=== PATIENT | female | born 1960 | race Caucasian/White ===

== ENCOUNTER → 2017-11-20 21:38 | Outpatient (CLI) | payer OTHER, SELFPAY ==
[2017-11-20 22:22] LABS: Absolute Lymphocyte Count 2.43 X10^3/ul (0.83-4.51); Absolute Neutrophil Count 7.3 X10^3/uL (2.0-7.7); Basophil# 0.11 X10^3/uL; Eosinophil# 0.41 X10^3/uL; Eosinophils% 3.8 % (0-5); Hematocrit 44.9 % (37-47); Hemoglobin 15.1 g/dl (12.0-15.0); Lymphocyte # 2.43 X10^3/ul (4.0); Lymphocyte % 22.3 % (19-41); Mean Corp Hgb Conc 33.6 g/gl (32-36); Mean Corpuscular Hgb 28.6 pg (27.0-32.0); Monocyte# 0.61 X10^3/uL; Monocyte% 5.6 % (0-10); Neutrophil # 7.31 X10^3/uL (2.7-7.7); Neutrophil % 66.9 % (47-70); Platelet Count 445 K/mm3 (150-450); RBC Distribution Width CV 13.2 % (11.6-14.6); RBC Distribution Width SD 40.8 fl (35.1-43.9); Red Blood Count 5.28 M/mm3 (4.2-5.4); White Blood Count 10.9 K/mm3 (4.4-11.0)
[2017-11-20 22:23] LABS: Differential Indicated SCAN CRITERIA MET; POSITIVE COUNT YES; POSITIVE DIFFERENTIAL NO; POSITIVE MORPHOLOGY NO
[2017-11-20 22:25] LABS: AST(SGOT) 27 U/L (15-37); Alanine Aminotransfer ALT/SGPT 31 U/L (13-56); Albumin, Serum 4.5 g/dL (3.2-5.0); Alkaline Phosphatase 149 U/L (45-117); Anion Gap 12 (5-15); BUN 13 mg/dL (7-18); Calcium,Total 9.6 mg/dL (8.5-10.1); Chloride 95 mmol/L (98-107); Cholesterol 207 mg/dL (200); EST Glomerular Filtration Rate 60 mL/min (>60); Est Glom Filt Rate - Afr Amer 73 mL/min (>60); Globulin 4.5 g/dL (2.2-4.2); Glucose 89 mg/dL (74-106); High Density Lipoprotein 65 mg/dL; Potassium 4.3 mmol/L (3.5-5.1); Sodium Level 130 mmol/L (136-145); T4 Free Direct 0.96 ng/dL (0.76-1.46); Triglycerides 162 mg/dL; Very Low Density Lipoprotein 32 mg/dL (5-40)
[2017-11-20 22:50] LABS: Platelet Estimate ADEQUATE (ADEQ)
[2017-11-20 22:51] LABS: Differential Comment SCANNED
== END ==
PROVIDERS: Family Provider Internal Medicine; PCP Internal Medicine; Visit Provider Nurse Practitioner
DX: I10 Essential (primary) hypertension (principal); E03.9 Hypothyroidism, unspecified; E78.5 Hyperlipidemia, unspecified; F41.9 Anxiety disorder, unspecified
CPT/HCPCS: 80053; 80061; 84439; 84443; 85025

== ENCOUNTER → 2017-12-25 21:28 | Outpatient (CLI) | payer OTHER, SELFPAY ==
[2017-12-25 21:55] LABS: AST(SGOT) 24 U/L (15-37); Alanine Aminotransfer ALT/SGPT 31 U/L (13-56); Albumin, Serum 4.2 g/dL (3.2-5.0); Alkaline Phosphatase 135 U/L (45-117); Anion Gap 7 (5-15); BUN 11 mg/dL (7-18); BUN/Creat Ratio 12.1 RATIO (10-20); Calcium,Total 10.1 mg/dL (8.5-10.1); Chloride 97 mmol/L (98-107); Creatinine, Serum 0.91 mg/dL (0.55-1.02); EST Glomerular Filtration Rate 67 mL/min (>60); Est Glom Filt Rate - Afr Amer 81 mL/min (>60); Glucose 96 mg/dL (74-106); Potassium 4.5 mmol/L (3.5-5.1); Protein, Total 8.2 g/dL (6.4-8.2); Sodium Level 131 mmol/L (136-145)
== END ==
PROVIDERS: Family Provider Internal Medicine; PCP Internal Medicine; Visit Provider Nurse Practitioner
DX: E87.1 Hypo-osmolality and hyponatremia (principal)
CPT/HCPCS: 80053

== ENCOUNTER → 2018-10-31 | Outpatient (CLI) | payer OTHER, SELFPAY ==
[2018-10-31 20:47] VITALS: BMI 26.4
== END | disposition home or self-care (01) ==
PROVIDERS: Family Provider Internal Medicine; PCP Internal Medicine; Referring Provider Nurse Practitioner; Visit Provider Nurse Practitioner
DX: N39.0 Urinary tract infection, site not specified (principal)
CPT/HCPCS: 87086; 87088; 87186

== ENCOUNTER → 2018-12-07 | Outpatient (CLI) | payer OTHER, SELFPAY ==
[2018-12-07 11:50] VITALS: BMI 26.1
[2018-12-07 22:14] LABS: Absolute Lymphocyte Count 2.88 X10^3/uL (0.83-4.51); Absolute Neutrophil Count 7.3 X10^3/uL (2.0-7.7); Basophil# 0.16 X10^3/uL; Basophil% 1.4 % (0-1); Eosinophil# 0.62 X10^3/uL; Eosinophils% 5.2 % (0-5); Hematocrit 41.2 % (37-47); Hemoglobin 13.6 g/dL (12.0-15.0); Lymphocyte # 2.88 X10^3/ul (4.0); Lymphocyte % 24.4 % (19-41); Mean Corpuscular Hgb 28.2 pg (27.0-32.0); Mean Corpuscular Volume 85.5 fL (81-99); Mean Platelet Vol. 9.9 fl (6.2-12.0); Monocyte# 0.77 X10^3/uL; Monocyte% 6.5 % (0-10); NRBC Flagged by Analyzer 0 % (0-5); Neutrophil # 7.34 X10^3/uL (2.7-7.7); Neutrophil % 62.2 % (47-70); Platelet Count 491 K/mm3 (150-450); RBC Distribution Width CV 13.2 % (11.6-14.6); RBC Distribution Width SD 40.9 fl (35.1-43.9); Red Blood Count 4.82 M/mm3 (4.2-5.4); White Blood Count 11.8 K/mm3 (4.4-11.0)
[2018-12-07 22:36] LABS: AST(SGOT) 25 U/L (15-37); Alanine Aminotransfer ALT/SGPT 25 U/L (13-56); Alkaline Phosphatase 181 U/L (45-117); Anion Gap 10 (5-15); BUN 16 mg/dL (7-18); Calcium,Total 9.9 mg/dL (8.5-10.1); Chloride 94 mmol/L (98-107); Cholesterol 168 mg/dL (200); EST Glomerular Filtration Rate 60 mL/min (>60); Est Glom Filt Rate - Afr Amer 73 mL/min (>60); Globulin 4.2 g/dL (2.2-4.2); Glucose 93 mg/dL (74-106); High Density Lipoprotein 54 mg/dL; Potassium 4.3 mmol/L (3.5-5.1); Protein, Total 8.2 g/dL (6.4-8.2); Sodium Level 132 mmol/L (136-145); Thyroid Stim Hormone (TSH) 0.99 uIU/mL (0.358-3.74); Triglycerides 191 mg/dL; Very Low Density Lipoprotein 38 mg/dL (5-40)
== END | disposition home or self-care (01) ==
PROVIDERS: Referring Provider Nurse Practitioner; Visit Provider Nurse Practitioner
DX: I10 Essential (primary) hypertension (principal); E78.5 Hyperlipidemia, unspecified; E03.9 Hypothyroidism, unspecified
CPT/HCPCS: 80053; 80061; 84443; 85025

== ENCOUNTER 2019-08-27 13:29 | Emergency (ER) | payer OTHER, SELFPAY ==
[2019-07-10 15:16] VITALS: BMI 26.1
[2019-08-27] VITALS (7 sets, daily range): BP systolic 105–179; BP diastolic 84–129; PULSE 79–136; RESP 16–28; TEMP 35.9–36.7; O2SAT 98–100; BMI 27.8
--- NOTE | 2019-08-27 13:31 | CT_ITS ---
STUDY: CT BRAIN WITHOUT CONTRAST REASON FOR EXAM: Female, 59 years old. SEIZURES, FALL LAST WEEK RADIATION DOSAGE (If Supplied By Facility): CTDIvol = ( 35 ) mGy, DLP = ( 1392.07 ) mGycm TECHNIQUE: Transaxial CT imaging of the brain was performed without administration of intravenous contrast material. Individualized dose optimization techniques were used for this CT. COMPARISON: No relevant priors. FINDINGS: Normal soft tissue structures. Normal calvarium. Normal size ventricles and extra-axial spaces for the patient''s age. Focal hemorrhagic contusion in the left posterior frontal temporal lobe measuring 1.7 cm x 1.4 cm. Possible small amount of subarachnoid hemorrhage in the left sylvian fissure. No significant edema is seen. Normal basal ganglia and thalami. Normal brainstem. Normal cerebellum. There are no findings of an acute ischemic infarction. Opacification of the ethmoid sinuses bilaterally. Minimal mucosal thickening of the maxillary sinuses. CT/Brain/Head without Contrast IMPRESSION: Focal hemorrhagic contusion in the posterior aspect of the left frontal and temporal lobes. No surrounding edema is seen. Possible small amount of subarachnoid hemorrhage within the left sylvian fissure. Electronically Signed: Harjit Galvan, at 14:26 EDT , Service support ,
--- NOTE | 2019-08-27 13:31 | EKG12_ITS ---
Test Reason : Blood Pressure : / mmHG Vent. Rate : 130 BPM Atrial Rate : 130 BPM P-R Int : 152 ms QRS Dur : 094 ms QT Int : 310 ms P-R-T Axes : 059 062 013 degrees QTc Int : [address]-T Changes Suspicious for Ischemia Abnormal ECG Confirmed by RON KNOX, DEVYN ([id number]), managing editor HETAHER MANNING ([id number]) on 09/01/2019 1:53:42 PM Referred By: SHAYY Confirmed By:BAN VELASQUEZ MD
[2019-08-27] MEDS: Rocuronium Bromide 50 MG/5 ML Vial IV (13:36)
[2019-08-27] MEDS: Etomidate 20 MG/10 ML Vial IV (13:36)
--- NOTE | 2019-08-27 13:39 | ED.DCSUM_ITS ---
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 Before patient recovered from seizure she had a second witnessed generalized tonic clonic seizure by paramedics. Context: Sudden Onset Timing: Intermittent Quality: Generalized tonic-clonic Location: Residents Current Severity: Moderate Maximum Severity: Severe Worsened by: History of fall with head trauma 1 week ago Relieved by: Seizure stopped with 2.5 mg of Valium Narrative: Is a 59-year-old woman with history of mastectomy bilaterally who presents with generalized tonic-clonic seizure, status after reported fall and head trauma 1 week ago. According to prospecting observer she is on no anticoagulant. No other history is available at the time of this report. Prior similar symptoms: No Recent Illness/Hospitalization: No - Past Medical History (1) GERD (gastroesophageal reflux disease) Status: Acute (2) Hyperlipemia Status: Acute (3) Hypothyroidism (acquired) Status: Acute (4) Hypertension Status: Chronic Past Medical History - Allergies and Home Meds Allergies/Adverse Reactions: Allergies Sulfa (Sulfonamide Antibiotics) Allergy (Severe, Verified 11/20/17 09:49) Chest tightness Penicillins Allergy (Mild, Verified 11/20/17 09:49) Other Primary Care Physician: NOT,DEFINED [NON-STAFF] - Prior records reviewed: Yes Surgical History: - - Bilateral mastectomy note Smoking Status: Former smoker Review of Systems ROS: Unable to Obtain Physical Exam Vital Signs/Narrative: Vital Signs Temp Pulse Resp BP Pulse Ox 08/27/19 13:31 96.9 F L 102 H 18 105/84 H 100 Inital Vital Signs reviewed: Yes General: Well nourished, Well developed, Obese Head: Normocephalic, Atraumatic Eyes: Perrl, EOMI, - - 4 mm sluggishly reactive and disconjugate gaze no subconjunctival hemorrhage. Negative for: Pale conjunctiva, Scleral icterus ENT: No rhinorrhea, TM's clear, - - No clinical findings of basilar skull fracture. Negative for: Dry mucous membranes, Nasal congestion Neck: Supple, No lymphadenopathy, No JVD Cardiovascular: Regular rhythm, No murmurs, Normal S1, Normal S2, Tachycardia Respiratory: No distress, CTA bilaterally Abdomen: Soft, Nontender, Nondistended, Normal bowel sounds Rectal: Deferred Back: Nontender, Normal Inspection Extremities: Nontender, No edema Skin: Normal color, No rash, No Trauma. Negative for: Cyanosis, Diaphoresis, Jaundice Neurological: Normal DTR - Decerebrate posturing to noxious stimuli and Babinski testing. Negative for: Alert, Oriented x3, Cranial nerves II-XII grossly intact, Normal Strength, Normal Sensation Psychological: - - Unable to determine Diagnostic/Tx/Re-eval Chest X-Ray - ED: 1 View, Read by ED Physician, - - Tracheal tube is noted right main bronchus. The tube was pulled back 2.5 cm. Oral tracheal tube in proper position. CT of the head reveals a right-sided superior parietal sub-cutaneous hematoma. There is contrecou parenchymal contusion as well as contusion right temporal area. There is no subdural, epidural or subarachnoid hemorrhage. CT of the neck per my read reveals no abnormality. Awaiting formal read by radiologist. Impressions Chest X-Ray 08/27/19 13:45 IMPRESSION: The tip of the endotracheal tube is in the proximal portion of the right mainstem bronchus. It should be withdrawn 4.1 cm. The tip of the orogastric tube is in the distal portion of the stomach. Mild increased markings in the central portion of the left lung. Electronically Signed: Harjit Mandy, at 14:02 EDT , Service support , 08/27/19 13:31 Brain/Head without Contrast [CT] Stat 08/27/19 13:45 Chest 1 View (Portable) [RAD] Stat 08/27/19 14:01 Spine Cervical without Contras [CT] Stat Laboratory Results 08/27/19 08/27/19 13:37 13:37 WBC 23.4 H RBC 4.15 L Hgb 11.6 L Hct 37.0 MCV 89.2 MCH 28.0 MCHC 31.4 L RDW Std Deviation 43.1 RDW Coeff of Jessica 13.2 Plt Count 637 H MPV 9.3 Immature Gran % (Auto) 0.500 Neut % (Auto) 37.6 L Lymph % (Auto) 25.1 Screven % (Auto) 5.3 Eos % (Auto) 30.2 H Baso % (Auto) 1.3 H Absolute Neuts (auto) 8.8 H Absolute Lymphs (auto) 5.85 H Nucleated RBC % 0 Sodium 129 L Potassium 3.5 Chloride 94 L Carbon Dioxide 14.0 L Anion Gap 21 H BUN 14 Creatinine 1.29 H Estim Creat Clear Calc 37.88 Est GFR (MDRD) Af Amer 54 L Est GFR (MDRD) Non-Af 45 L BUN/Creatinine Ratio 10.9 Glucose 119 H Calcium 9.2 Total Bilirubin 0.50 AST 25 ALT 27 Alkaline Phosphatase 224 H Total Protein 8.1 Albumin 3.7 Globulin 4.4 H Albumin/Globulin Ratio 0.8 L Patient is hyponatremic. This would not explain her seizures. Seizure secondary to the trauma. Creatinine is 1.29. Coags are pending. - Rhythm Strip Rhythm Strip: Sinus Tach Rate: 102 Ectopy: None - Medical Decision Making History of head trauma and status epilepticus with posturing concern patient has intracranial bleed. Because patient is unable to protect her airway and does have decerebrate posturing she was prepped orotracheal ovation. She received 20 mg etomidate and 50 mg of rocuronium. Propofol drip was ordered. Soft restraints were ordered. CT of the head was obtained to rule out intracranial bleed. Appropriate blood work was obtained including coags. Once family arrives we will discuss case for transfer to tertiary facility. Spoke with daughter and family members by phone. Requested transfer to [facility]. Spoke with the transfer nurse. She was made aware of history and physical. Concern is this going to be a trauma transfer versus ICU transfer. Awaiting CAT scan to determine. - Critical Care Time Critical care time (excluding procedures): 30-74 minutes - Critical care time 34 minutes, Discussing w/Patient &/or Family/Truck And Transport Mechanic - Family requested transfer to [facility]. Family is aware of her condition., Discussing w/Consultants, Arranging Admission or Transfer - Spoke with transfer nurse and ED physician at [facility], Performing Direct Patient Care at Bedside Procedures Procedure(s): Intubation by RSI. Patient received 20 mg etomidate and 50 mg rocuronium. Patient was placed on a propofol drip. OG and ET tube confirmed by chest x-ray. ETT was pulled back. ED Disposition - Plan for ED Patient: Disposition: [facility] Diagnosis: Traumatic brain injury, Contusional brain injury, Status epilepticus Referrals: NOT,DEFINED [NON-STAFF] -
--- NOTE | 2019-08-27 13:45 | RAD_ITS ---
STUDY: X-RAY CHEST REASON FOR EXAM: Female, 59 years old. Difficulty breathing. TECHNIQUE: Single AP portable view of the chest. COMPARISON: None. FINDINGS: An endotracheal tube is in place. The tip is in the right mainstem bronchus. This should be withdrawn approximately 4 cm. An orogastric tube is seen with the distal tip in the distal portion of the stomach. Surgical clips are seen in both axillary regions. Mild increased markings in the central left lung most likely secondary to the intubation into the right bronchus. There is no demonstrated pleural abnormality. Normal size heart. Normal mediastinum and rigoberto. Normal visualized pulmonary arteries. Normal visualized aortic arch and descending thoracic aorta. Normal visualized thoracic spine. Normal visualized ribs, clavicles, and shoulders. There is no demonstrated abnormality of the visualized soft tissue structures of the upper abdomen. RAD/Chest 1 View (Portable) IMPRESSION: The tip of the endotracheal tube is in the proximal portion of the right mainstem bronchus. It should be withdrawn 4.1 cm. The tip of the orogastric tube is in the distal portion of the stomach. Mild increased markings in the central portion of the left lung. Electronically Signed: Harjit Galvan, at 14:02 EDT , Service support ,
[2019-08-27] MEDS: 0.9% Normal Saline 1,000 ML 150 ML IV (13:48)
[2019-08-27 13:50] LABS: Absolute Lymphocyte Count 5.85 X10^3/uL (0.83-4.51); Absolute Neutrophil Count 8.8 X10^3/uL (2.0-7.7); Basophil# 0.31 X10^3/uL; Basophil% 1.3 % (0-1); Eosinophils% 30.2 % (0-5); Hemoglobin 11.6 g/dL (12.0-15.0); Lymphocyte # 5.85 X10^3/ul (4.0); Lymphocyte % 25.1 % (19-41); Mean Corp Hgb Conc 31.4 g/dL (32-36); Mean Corpuscular Volume 89.2 fL (81-99); Mean Platelet Vol. 9.3 fl (6.2-12.0); Monocyte# 1.24 X10^3/uL; Monocyte% 5.3 % (0-10); NRBC Flagged by Analyzer 0 % (0-5); Neutrophil # 8.78 X10^3/uL (2.7-7.7); Neutrophil % 37.6 % (47-70); POSITIVE DIFFERENTIAL YES; Platelet Count 637 K/mm3 (150-450); RBC Distribution Width CV 13.2 % (11.6-14.6); RBC Distribution Width SD 43.1 fl (35.1-43.9); Red Blood Count 4.15 M/mm3 (4.2-5.4); White Blood Count 23.4 K/mm3 (4.4-11.0)
[2019-08-27 13:52] LABS: Differential Indicated SCAN CRITERIA MET; Eosinophil# 7.05 X10^3/uL
--- NOTE | 2019-08-27 13:53 | NURSING ---
CALLED [facility], TALKED KALIA. DR LUCAS TALKING ABOUT TRANSFER
--- NOTE | 2019-08-27 14:01 | CT_ITS ---
STUDY: CT CERVICAL SPINE WITHOUT CONTRAST REASON FOR EXAM: Female, 59 years old. SEIZURES, FALL LAST WEEK RADIATION DOSAGE (If Supplied By Facility): CTDIvol = ( 26.44 ) mGy, DLP = ( 595.96 ) mGycm TECHNIQUE: High resolution transaxial imaging was performed without contrast material. Sagittal and coronal images were reconstructed. Individualized dose optimization techniques were used for this CT. COMPARISON: None FINDINGS: An endotracheal tube is seen within the trachea. An orogastric tube is seen within the esophagus. Normal craniovertebral junction. Normal anterior atlantoaxial articulation. Normal odontoid process. There is straightening of the normal cervical lordosis. Normal vertebral bodies and posterior osseous elements. C2-3: Normal endplates. Normal disc height and morphology. Normal central canal and intervertebral neuroforamina. C3-4: Minimal anterolisthesis of C3 on C4 most likely secondary to the facet joint osteoarthritis and hypertrophy worse on the left side. C4-5: Normal endplates. Normal disc height and morphology. Normal central canal and intervertebral neuroforamina. C5-6: Normal endplates. Normal disc height and morphology. Normal central canal and intervertebral neuroforamina. C6-7: Normal endplates. Normal disc height and morphology. Normal central canal and intervertebral neuroforamina. C7-T1: Normal endplates. Normal disc height and morphology. Normal central canal and intervertebral neuroforamina. Normal visualized soft tissue structures. CT/Spine Cervical without Contras IMPRESSION: Straightening of the normal cervical lordosis with minimal anterolisthesis of C3 on C4 most likely secondary to the facet joint hypertrophy and osteoarthritis more prominent on the left side. Electronically Signed: Harjit Galvan, at 14:23 EDT , Service support ,
[2019-08-27 14:07] LABS: ALB/GLOB Ratio 0.8 RATIO (0.9-2.4); AST(SGOT) 25 U/L (15-37); Alanine Aminotransfer ALT/SGPT 27 U/L (13-56); Albumin, Serum 3.7 g/dL (3.2-5.0); Alkaline Phosphatase 224 U/L (45-117); Anion Gap 21 (5-15); BUN 14 mg/dL (7-18); BUN/Creat Ratio 10.9 RATIO (10-20); Calcium,Total 9.2 mg/dL (8.5-10.1); Chloride 94 mmol/L (98-107); Creatinine, Serum 1.29 mg/dL (0.55-1.02); EST Glomerular Filtration Rate 45 mL/min (>60); Est Glom Filt Rate - Afr Amer 54 mL/min (>60); Estimated Creatinine Clearance 37.88 ml/min; Globulin 4.4 g/dL (2.2-4.2); Glucose 119 mg/dL (74-106); Potassium 3.5 mmol/L (3.5-5.1); Protein, Total 8.1 g/dL (6.4-8.2); Sodium Level 129 mmol/L (136-145)
[2019-08-27] MEDS: Propofol 10MG/Ml 1,000 MG/100 ML Bottle 4.3 MG CONT INF (14:07)
[2019-08-27 14:12] LABS: International Normalized Ratio 1.1; Prothrombin Time (Protime)PT. 13.4 SECONDS (11.7-14.9)
[2019-08-27 14:13] LABS: Partial Thromboplast Time 26.9 Seconds (24.1-36.2)
[2019-08-27 14:14] LABS: Alcohol, Blood (Medical)-Serum < 3.0 mg/dL
[2019-08-27 14:22] LABS: Burr Cells 1+; Platelet Estimate MKD INC (ADEQ); Red Cell Morphology N CHROM NORMAL (NORM C&C)
--- NOTE | 2019-08-27 14:23 | NURSING ---
1419 ETA IS 20 MIN FOR FLIGHT
[2019-08-27 14:38] LABS: Mucous, Urine 0 SEEN /hpf (<or=2+); Squamous Epithelial Cells - UA 0 SEEN /hpf (5-10)
[2019-08-27] MEDS: Propofol 200 MG/20 ML Vial 70 MG IV BOLUS (14:39)
[2019-08-27 14:40] LABS: Color, Urine Yellow (Yellow); Glucose, Dipstick Normal (Normal); Ketone-Dipstick Negative (Negative); Leukocyte Esterase-Dipstick Negative /ul (Negative); Nitrite-Dipstick Negative (Negative); Occult Blood-Urine 25 /ul (Negative); Protein-Dipstick 30 mg/dl (Negative); Urine Bilirubin Dipstick Negative (Negative); Urine Clarity Clear (Clear); Urine Urobilinogen Normal (Normal); Urine pH 6.5 (5.0 - 8.0)
[2019-08-27 14:49] LABS: Bacteria 1+ /hpf (None Seen); Hyaline Cast 0-5 SEEN /lpf (0-5); Red Blood Cells-Urine 0-5 SEEN /hpf (0-5); Renal Epithelial Cells 0-5 SEEN /hpf (0-5); White Blood Cells 0-5 SEEN /hpf (0-5)
[2019-08-27 15:06] LABS: Amphetamine Urine VISTA NEGATIVE (<1000 ng/mL); Barbiturate Urine VISTA NEGATIVE (< 200 ng/mL); Benzodiazepine Urine VISTA POSITIVE (< 200 ng/mL); Cocaine Urine VISTA NEGATIVE (< 300 ng/mL); Ecstacy Urine VISTA POSITIVE (< 500 ng/mL); Methadone Urine VISTA NEGATIVE (< 300 ng/mL); PCP Urine VISTA NEGATIVE (< 25 ng/mL); THC Urine VISTA NEGATIVE (< 50 ng/mL); Vista UDS pH Range 6
[2019-08-27 17:16] LABS: Base Excess -10 mmol/L (-2 to +2); Bicarbonate 17.2 mmol/L (22-26); PO2 102 mmHG (75-100); SO2 97 % (95-99); Total Carbon Dioxide 18 mmol/L; pH 7.24 (7.35-7.45)
[2019-08-27 18:17] LABS: Allen Test POS; Blood Gas Specimen Type ART; Mode A-C; O2 Delivery Device Vent; SITE R RADIAL
[2019-08-27 18:18] LABS: FI02 50; PEEP 5; RR 14; Vt 450
== END 2019-08-27 20:21 | disposition short-term general hospital (02) ==
PROVIDERS: Emergency Provider Emergency Medicine
DX: S06.9X0A Unspecified intracranial injury without loss of consciousness, initial encounter (principal); S06.2X0A Diffuse traumatic brain injury without loss of consciousness, initial encounter; G40.901 Epilepsy, unspecified, not intractable, with status epilepticus; E66.9 Obesity, unspecified; W19.XXXA Unspecified fall, initial encounter; Z87.891 Personal history of nicotine dependence
CPT/HCPCS: 31500; 36600; 51702; 70450; 71045; 72125; 80053; 80307; 80320; 81001; 82803; 85025; 85610; 85730; 93005; 94002; 96361; 96374; 96375; 99251; 99285; J7030; A4216; G0463; G0480

== ENCOUNTER → 2019-12-18 21:27 | Outpatient (CLI) | payer OTHER, SELFPAY ==
[2019-12-18 17:46] VITALS: BMI 26.7
[2019-12-18 21:36] LABS: Absolute Lymphocyte Count 3.27 X10^3/uL (0.83-4.51); Absolute Neutrophil Count 6.1 X10^3/uL (2.0-7.7); Basophil# 0.22 X10^3/uL; Basophil% 1.7 % (0-1); Eosinophils% 18.3 % (0-5); Hemoglobin 14.3 g/dL (12.0-15.0); Lymphocyte # 3.27 X10^3/ul (4.0); Mean Corpuscular Hgb 27.7 pg (27.0-32.0); Mean Corpuscular Volume 81.4 fL (81-99); Mean Platelet Vol. 9.9 fl (6.2-12.0); Monocyte# 0.66 X10^3/uL; Monocyte% 5.2 % (0-10); NRBC Flagged by Analyzer 0 % (0-5); Neutrophil # 6.08 X10^3/uL (2.7-7.7); Neutrophil % 48.4 % (47-70); POSITIVE DIFFERENTIAL YES; Platelet Count 544 K/mm3 (150-450); RBC Distribution Width CV 13.6 % (11.6-14.6); RBC Distribution Width SD 39.7 fl (35.1-43.9); Red Blood Count 5.16 M/mm3 (4.2-5.4); White Blood Count 12.6 K/mm3 (4.4-11.0)
[2019-12-18 21:44] LABS: Differential Indicated SCAN CRITERIA MET
[2019-12-18 22:01] LABS: ALB/GLOB Ratio 0.9 RATIO (0.9-2.4); AST(SGOT) 20 U/L (15-37); Alanine Aminotransfer ALT/SGPT 28 U/L (13-56); Albumin, Serum 4.1 g/dL (3.2-5.0); Alkaline Phosphatase 235 U/L (45-117); Anion Gap 7 (5-15); BUN 13 mg/dL (7-18); BUN/Creat Ratio 12.5 RATIO (10-20); Calcium,Total 10.2 mg/dL (8.5-10.1); Chloride 93 mmol/L (98-107); Creatinine, Serum 1.04 mg/dL (0.55-1.02); EST Glomerular Filtration Rate 57 mL/min (>60); Est Glom Filt Rate - Afr Amer 69 mL/min (>60); Globulin 4.8 g/dL (2.2-4.2); Glucose 120 mg/dL (74-106); Potassium 3.2 mmol/L (3.5-5.1); Protein, Total 8.9 g/dL (6.4-8.2); Sodium Level 128 mmol/L (136-145); Thyroid Stim Hormone (TSH) 0.56 uIU/mL (0.358-3.74)
[2019-12-18 22:07] LABS: Platelet Estimate MOD INC (ADEQ); Red Cell Morphology NORM C+C NORMAL (NORM C&C)
== END ==
PROVIDERS: PCP Nurse Practitioner; Referring Provider Nurse Practitioner; Visit Provider Nurse Practitioner
DX: E87.1 Hypo-osmolality and hyponatremia (principal); D64.9 Anemia, unspecified; E03.9 Hypothyroidism, unspecified; D51.9 Vitamin B12 deficiency anemia, unspecified
CPT/HCPCS: 80053; 84443; 85025

== ENCOUNTER → 2021-01-14 21:30 | Outpatient (CLI) | payer OTHER, SELFPAY ==
[2021-01-14 21:48] LABS: Absolute Lymphocyte Count 2.81 X10^3/uL (0.83-4.51); Basophil# 0.13 X10^3/uL; Eosinophil# 0.34 X10^3/uL; Eosinophils% 2.6 % (0-5); Hemoglobin 13.7 g/dL (12.0-15.0); Lymphocyte # 2.81 X10^3/ul (0.83-4.51); Lymphocyte % 21.4 % (19-41); Mean Corp Hgb Conc 33.4 g/dL (32-36); Mean Corpuscular Hgb 29.5 pg (27.0-32.0); Mean Corpuscular Volume 88.4 fL (81-99); Mean Platelet Vol. 9.6 fl (6.2-12.0); Monocyte# 0.82 X10^3/uL; Monocyte% 6.2 % (0-10); NRBC Flagged by Analyzer 0 % (0-5); Neutrophil # 8.98 X10^3/uL (2.7-7.7); Neutrophil % 68.4 % (47-70); Platelet Count 491 K/mm3 (150-450); RBC Distribution Width CV 12.5 % (11.6-14.6); RBC Distribution Width SD 40.1 fl (35.1-43.9); Red Blood Count 4.64 M/mm3 (4.2-5.4); White Blood Count 13.1 K/mm3 (4.4-11.0)
[2021-01-14 21:59] LABS: ALB/GLOB Ratio 0.9 RATIO (0.9-2.4); AST(SGOT) 17 U/L (15-37); Alanine Aminotransfer ALT/SGPT 31 U/L (13-56); Albumin, Serum 3.9 g/dL (3.2-5.0); Alkaline Phosphatase 150 U/L (45-117); Anion Gap 10 (5-15); BUN 19 mg/dL (7-18); BUN/Creat Ratio 16.1 RATIO (10-20); Calcium,Total 9.5 mg/dL (8.5-10.1); Chloride 99 mmol/L (98-107); Cholesterol 165 mg/dL (200); Creatinine, Serum 1.18 mg/dL (0.55-1.02); EST Glomerular Filtration Rate 49 mL/min (>60); Est Glom Filt Rate - Afr Amer 60 mL/min (>60); Globulin 4.5 g/dL (2.2-4.2); Glucose 86 mg/dL (74-106); High Density Lipoprotein 51 mg/dL; Potassium 2.9 mmol/L (3.5-5.1); Protein, Total 8.4 g/dL (6.4-8.2); Sodium Level 135 mmol/L (136-145); Triglycerides 365 mg/dL; Very Low Density Lipoprotein 73 mg/dL (5-40)
== END ==
PROVIDERS: PCP Nurse Practitioner; Referring Provider Nurse Practitioner; Visit Provider Nurse Practitioner
DX: K21.9 Gastro-esophageal reflux disease without esophagitis (principal); R56.9 Unspecified convulsions; I10 Essential (primary) hypertension
CPT/HCPCS: 80053; 80061; 85025

== ENCOUNTER → 2022-01-10 | Outpatient (CLI) | payer OTHER, SELFPAY ==
[2022-01-10 21:44] LABS: Absolute Lymphocyte Count 2.84 X10^3/uL (0.83-4.51); Absolute Neutrophil Count 7.5 X10^3/uL (2.0-7.7); Basophil# 0.11 X10^3/uL; Eosinophil# 0.21 X10^3/uL; Eosinophils% 1.8 % (0-5); Hematocrit 39.6 % (37-47); Lymphocyte # 2.84 X10^3/ul (0.83-4.51); Lymphocyte % 24.8 % (19-41); Mean Corp Hgb Conc 32.8 g/dL (32-36); Mean Corpuscular Hgb 27.4 pg (27.0-32.0); Mean Corpuscular Volume 83.5 fL (81-99); Mean Platelet Vol. 9.7 fl (6.2-12.0); Monocyte# 0.68 X10^3/uL; Monocyte% 5.9 % (0-10); NRBC Flagged by Analyzer 0 % (0-5); Neutrophil # 7.54 X10^3/uL (2.7-7.7); Platelet Count 559 K/mm3 (150-450); RBC Distribution Width CV 13.1 % (11.6-14.6); RBC Distribution Width SD 39.3 fl (35.1-43.9); Red Blood Count 4.74 M/mm3 (4.2-5.4); White Blood Count 11.4 K/mm3 (4.4-11.0)
[2022-01-10 22:08] LABS: ALB/GLOB Ratio 0.9 RATIO (0.9-2.4); AST(SGOT) 22 U/L (15-37); Alanine Aminotransfer ALT/SGPT 23 U/L (13-56); Albumin, Serum 3.9 g/dL (3.2-5.0); Alkaline Phosphatase 177 U/L (45-117); Anion Gap 8 (5-15); BUN 15 mg/dL (7-18); BUN/Creat Ratio 14.9 RATIO (10-20); Calcium,Total 9.7 mg/dL (8.5-10.1); Chloride 99 mmol/L (98-107); Cholesterol 175 mg/dL (200); Creatinine, Serum 1.01 mg/dL (0.55-1.02); EST Glomerular Filtration Rate 59 mL/min (>60); Est Glom Filt Rate - Afr Amer 71 mL/min (>60); Globulin 4.4 g/dL (2.2-4.2); Glucose 87 mg/dL (74-106); High Density Lipoprotein 51 mg/dL; Protein, Total 8.3 g/dL (6.4-8.2); Sodium Level 131 mmol/L (136-145); Thyroid Stim Hormone (TSH) 0.11 uIU/mL (0.358-3.74); Triglycerides 205 mg/dL; Very Low Density Lipoprotein 41 mg/dL (5-40)
== END | disposition home or self-care (01) ==
PROVIDERS: PCP Nurse Practitioner; Visit Provider Nurse Practitioner
DX: E03.9 Hypothyroidism, unspecified (principal); I10 Essential (primary) hypertension; E78.2 Mixed hyperlipidemia
CPT/HCPCS: 80053; 80061; 84443; 85025

== ENCOUNTER → 2023-02-01 | Outpatient (CLI) | payer OTHER, SELFPAY ==
[2023-02-01 20:35] LABS: Absolute Lymphocyte Count 2.79 X10^3/uL (0.83-4.51); Absolute Neutrophil Count 6.4 X10^3/uL (2.0-7.7); Basophil# 0.08 X10^3/uL; Basophil% 0.8 % (0-1); Eosinophil# 0.33 X10^3/uL; Eosinophils% 3.2 % (0-5); Hematocrit 38.4 % (37-47); Hemoglobin 12.3 g/dL (12.0-15.0); Lymphocyte # 2.79 X10^3/ul (0.83-4.51); Lymphocyte % 26.9 % (19-41); Mean Corpuscular Hgb 27.2 pg (27.0-32.0); Mean Platelet Vol. 9.5 fl (6.2-12.0); Monocyte# 0.75 X10^3/uL; Monocyte% 7.2 % (0-10); NRBC Flagged by Analyzer 0 % (0-5); Neutrophil # 6.37 X10^3/uL (2.7-7.7); Neutrophil % 61.4 % (47-70); Platelet Count 600 K/mm3 (150-450); RBC Distribution Width CV 13.1 % (11.6-14.6); RBC Distribution Width SD 40.2 fl (35.1-43.9); Red Blood Count 4.52 M/mm3 (4.2-5.4); White Blood Count 10.4 K/mm3 (4.4-11.0)
[2023-02-01 21:02] LABS: ALB/GLOB Ratio 0.9 RATIO (0.9-2.4); AST(SGOT) 22 U/L (15-37); Alanine Aminotransfer ALT/SGPT 25 U/L (13-56); Alkaline Phosphatase 137 U/L (45-117); Anion Gap 11 (5-15); BUN 16 mg/dL (7-18); BUN/Creat Ratio 14.4 RATIO (10-20); Calcium,Total 9.1 mg/dL (8.5-10.1); Chloride 92 mmol/L (98-107); Cholesterol 177 mg/dL (200); Creatinine, Serum 1.11 mg/dL (0.55-1.02); EST Glomerular Filtration Rate 53 mL/min (>60); Est Glom Filt Rate - Afr Amer 64 mL/min (>60); Globulin 4.5 g/dL (2.2-4.2); Glucose 103 mg/dL (74-106); High Density Lipoprotein 55 mg/dL; Potassium 3.5 mmol/L (3.5-5.1); Protein, Total 8.5 g/dL (6.4-8.2); Sodium Level 127 mmol/L (136-145); Thyroid Stim Hormone (TSH) 4.81 uIU/mL (0.358-3.74); Triglycerides 209 mg/dL; Very Low Density Lipoprotein 42 mg/dL (5-40)
== END | disposition home or self-care (01) ==
PROVIDERS: PCP Nurse Practitioner; Visit Provider Nurse Practitioner
DX: I10 Essential (primary) hypertension (principal); E78.5 Hyperlipidemia, unspecified; E03.9 Hypothyroidism, unspecified
CPT/HCPCS: 80053; 80061; 84443; 85025

== ENCOUNTER → 2023-03-27 | Outpatient (CLI) | payer MEDICARE, SELFPAY ==
--- OUTSIDE RECORDS SUMMARY | 2023-03-27 21:29 | XMS RPT_ITS | CCD ---
Author Name Unknown Address [address] [place] [address] Organization [facility] Results Test Name Value Interpretation Reference Range Facil ity Procedures Date Procedure Procedure Detail Performing Clinician Start: 08-28-2019 Electrocardiogram Start: 08-27-2019 Electrocardiogram Start: 08-27-2019 Antibody screen Summary Purpose Family History No Family History Records FoundNo Family History Records FoundNo Family History Records Found Advance Directives No Advanced Directives Records FoundNo Advanced Directives Records FoundNo Advanced Directives Records Found Hospital Course Note HNO ID: [id number] Author: Andrews Carbone Service: Trauma Author Type: Physician Type: Discharge Summary Filed: 08/30/2019 4:05 PM Note Text: DISCHARGE SUMMARY PATIENT NAME: Carla Blackmon Code Status: Not on file Highest Readmission Risk Score: 16 The 30 day readmissions risk score is derived from an internally validated risk model which evaluates patient level characteristics, utilization history, medication orders and lab results up until the day of discharge. Patients with a score of 40 or above are considered highest risk for readmission. Specific patient level drivers will be listed at the bottom of the summary. Admission Information Admission Information ADMIT DATE: 08/27/2019 DISCHARGE DATE: 08/30/2019 [facility] Doctor: Don Lizama Primary Care Provider: Edie Crowder NP My Medical Team Members: Treatment Team: Attending Provider: Don Lizama Consulting: Libia Navarro Consulting: Austin Morse Consultin (more content not included)... Additional Source Comments INFORMATION SOURCE (unrecogn ized section and content) DATE CREATED AUTHOR AUTHOR'S ORGANIZ ATION 02/11/2020 [facility] DATE CREATED AUTHOR AUTHOR'S ORGANIZ ATION 04/05/2022 [facility] FOR RECORDS PERTAINING TO PATIENTS WHO ARE OR HAVE BEEN ENROLLED IN A CHEMICAL DEPENDENCY/SUBSTANCEABUSE PROGRAM, SOME INFORMATION MAY BE OMITTED. This clinical summary was aggregated from multiple sources. Caution should be exercised in using it in the provision of clinical care. This summary normalizes information from multiple sources, and as a consequence, information in this document may materially change the coding, format and clinical context of patient data. In addition, data may be omitted in some cases. CLINICAL DECISIONS SHOULD BE BASED ON THE PRIMARY CLINICAL RECORDS. [facility] [employer] [facility]. provides no warranty or guarantee of the accuracy or completeness of information in this document.
[2023-03-27 22:02] LABS: Thyroid Stim Hormone (TSH) 1.58 uIU/mL (0.358-3.74)
== END | disposition home or self-care (01) ==
PROVIDERS: PCP Nurse Practitioner; Visit Provider Nurse Practitioner
DX: E03.9 Hypothyroidism, unspecified (principal)
CPT/HCPCS: 84443

== ENCOUNTER → 2024-01-29 | Outpatient (CLI) | payer MEDICARE, SELFPAY ==
[2024-01-29 23:32] LABS: Absolute Lymphocyte Count 2.64 X10^3/uL (0.83-4.51); Absolute Neutrophil Count 6.3 X10^3/uL (2.0-7.7); Basophil# 0.09 X10^3/uL; Basophil% 0.9 % (0-1); Eosinophil# 0.26 X10^3/uL; Eosinophils% 2.6 % (0-5); Hemoglobin 11.7 g/dL (12.0-15.0); Lymphocyte # 2.64 X10^3/ul (0.83-4.51); Lymphocyte % 26.8 % (19-41); Mean Corp Hgb Conc 32.5 g/dL (32-36); Mean Corpuscular Hgb 25.6 pg (27.0-32.0); Mean Corpuscular Volume 78.8 fL (81-99); Mean Platelet Vol. 9.4 fl (6.2-12.0); Monocyte# 0.57 X10^3/uL; Monocyte% 5.8 % (0-10); NRBC Flagged by Analyzer 0 % (0-5); Neutrophil # 6.26 X10^3/uL (2.7-7.7); Neutrophil % 63.5 % (47-70); Platelet Count 598 K/mm3 (150-450); RBC Distribution Width CV 14.2 % (11.6-14.6); RBC Distribution Width SD 40.3 fl (35.1-43.9); Red Blood Count 4.57 M/mm3 (4.2-5.4); White Blood Count 9.9 K/mm3 (4.4-11.0)
[2024-01-29 23:57] LABS: ALB/GLOB Ratio 0.9 RATIO (0.9-2.4); AST(SGOT) 17 U/L (15-37); Alanine Aminotransfer ALT/SGPT 21 U/L (13-56); Albumin, Serum 3.9 g/dL (3.2-5.0); Alkaline Phosphatase 142 U/L (45-117); Anion Gap 11 (5-15); BUN 13 mg/dL (7-18); Chloride 92 mmol/L (98-107); Cholesterol 241 mg/dL (200); Creatinine, Serum 0.93 mg/dL (0.55-1.02); EST Glomerular Filtration Rate 64 mL/min (>60); Est Glom Filt Rate - Afr Amer 78 mL/min (>60); Globulin 4.4 g/dL (2.2-4.2); Glucose 96 mg/dL (74-106); High Density Lipoprotein 54 mg/dL; Potassium 3.6 mmol/L (3.5-5.1); Protein, Total 8.3 g/dL (6.4-8.2); Sodium Level 126 mmol/L (136-145); Triglycerides 271 mg/dL; Very Low Density Lipoprotein 54 mg/dL (5-40)
== END | disposition home or self-care (01) ==
PROVIDERS: PCP Nurse Practitioner; Referring Provider Nurse Practitioner; Visit Provider Nurse Practitioner
DX: N30.90 Cystitis, unspecified without hematuria (principal); E78.1 Pure hyperglyceridemia; I10 Essential (primary) hypertension; R60.1 Generalized edema; E78.2 Mixed hyperlipidemia; E03.9 Hypothyroidism, unspecified; K21.9 Gastro-esophageal reflux disease without esophagitis
CPT/HCPCS: 80053; 80061; 84443; 85025; 87086; 87088

== ENCOUNTER → 2024-04-28 | Outpatient (CLI) | payer MEDICARE, SELFPAY ==
[2024-04-29] LABS: Absolute Lymphocyte Count 2.28 X10^3/uL (0.83-4.51); Absolute Neutrophil Count 7.2 X10^3/uL (2.0-7.7); Basophil# 0.09 X10^3/uL; Basophil% 0.9 % (0-1); Eosinophil# 0.33 X10^3/uL; Eosinophils% 3.1 % (0-5); Hematocrit 40.1 % (37-47); Lymphocyte # 2.28 X10^3/ul (0.83-4.51); Lymphocyte % 21.7 % (19-41); Mean Corp Hgb Conc 32.4 g/dL (32-36); Mean Corpuscular Hgb 26.7 pg (27.0-32.0); Mean Corpuscular Volume 82.5 fL (81-99); Mean Platelet Vol. 8.8 fl (6.2-12.0); Monocyte% 4.8 % (0-10); NRBC Flagged by Analyzer 0 % (0-5); Neutrophil # 7.23 X10^3/uL (2.7-7.7); Neutrophil % 68.9 % (47-70); Platelet Count 603 K/mm3 (150-450); RBC Distribution Width CV 15.3 % (11.6-14.6); RBC Distribution Width SD 46.5 fl (35.1-43.9); Red Blood Count 4.86 M/mm3 (4.2-5.4); White Blood Count 10.5 K/mm3 (4.4-11.0)
[2024-04-29 00:16] LABS: ALB/GLOB Ratio 0.9 RATIO (0.9-2.4); AST(SGOT) 19 U/L (15-37); Alanine Aminotransfer ALT/SGPT 27 U/L (13-56); Albumin, Serum 3.9 g/dL (3.2-5.0); Alkaline Phosphatase 131 U/L (45-117); Anion Gap 9 (5-15); BUN 17 mg/dL (7-18); BUN/Creat Ratio 16.7 RATIO (10-20); Calcium,Total 9.7 mg/dL (8.5-10.1); Chloride 92 mmol/L (98-107); Cholesterol 185 mg/dL (200); Creatinine, Serum 1.02 mg/dL (0.55-1.02); EST Glomerular Filtration Rate 58 mL/min (>60); Est Glom Filt Rate - Afr Amer 70 mL/min (>60); Globulin 4.4 g/dL (2.2-4.2); Glucose 97 mg/dL (74-106); High Density Lipoprotein 53 mg/dL; Iron 133 ug/dL (50-170); Iron Binding Capacity,Total 398 ug/dL (250-450); PERCENT IRON SATURATION 33.4 % (15.0-55.0); Potassium 4.3 mmol/L (3.5-5.1); Protein, Total 8.3 g/dL (6.4-8.2); Sodium Level 125 mmol/L (136-145); Triglycerides 207 mg/dL; Very Low Density Lipoprotein 41 mg/dL (5-40); Vitamin B12 710 pg/mL (211-911)
[2024-04-30 08:09] LABS: Transferrin 314 mg/dL (192-364)
== END | disposition home or self-care (01) ==
PROVIDERS: PCP Nurse Practitioner; Referring Provider Nurse Practitioner; Visit Provider Nurse Practitioner
DX: E78.1 Pure hyperglyceridemia (principal); S06.309A Unspecified focal traumatic brain injury with loss of consciousness of unspecified duration, initial encounter; I10 Essential (primary) hypertension; E03.9 Hypothyroidism, unspecified; G44.021 Chronic cluster headache, intractable; R53.83 Other fatigue; S01.90XA Unspecified open wound of unspecified part of head, initial encounter; D64.9 Anemia, unspecified
CPT/HCPCS: 80053; 80061; 82533; 82607; 83540; 83550; 84466; 85025

== ENCOUNTER → 2024-05-15 | Outpatient (CLI) | payer MEDICARE, SELFPAY ==
[2024-05-15 22:49] LABS: ALB/GLOB Ratio 1.3 RATIO (0.9-2.4); AST(SGOT) 25 U/L (<=31); Alanine Aminotransfer ALT/SGPT 15 U/L (<=34); Albumin, Serum 4.4 g/dL (3.4-4.8); Alkaline Phosphatase 144 U/L (35-104); Anion Gap 12 (5-15); BUN 13 mg/dL (4-19); BUN/Creat Ratio 13.6 RATIO (10-20); Calcium 9.7 mg/dL (7.6-11.0); Carbon Dioxide 21.7 mmol/L (22.0-29.0); Chloride 87 mmol/L (96-108); Creatinine, Serum 0.94 mg/dL (0.70-1.20); EST Glomerular Filtration Rate 67 (>60); Globulin 3.4 g/dL (2.2-4.2); Glucose 75 mg/dL (70-99); Potassium 4.5 mmol/L (3.3-5.1); Protein, Total 7.8 g/dL (5.9-8.4); Sodium Level 121 mmol/L (133-145); Total Bilirubin 0.28 mg/dL (0.00-1.30)
== END | disposition home or self-care (01) ==
PROVIDERS: PCP Nurse Practitioner; Referring Provider Nurse Practitioner; Visit Provider Nurse Practitioner
DX: E87.1 Hypo-osmolality and hyponatremia (principal)
CPT/HCPCS: 80053

== ENCOUNTER → 2024-06-05 | Outpatient (CLI) | payer MEDICARE, SELFPAY ==
[2024-06-05 22:50] LABS: ALB/GLOB Ratio 1.2 RATIO (0.9-2.4); AST(SGOT) 21 U/L (<=31); Alanine Aminotransfer ALT/SGPT 17 U/L (<=34); Albumin, Serum 4.2 g/dL (3.4-4.8); Alkaline Phosphatase 147 U/L (35-104); Anion Gap 12 (5-15); BUN 13 mg/dL (4-19); BUN/Creat Ratio 13.3 RATIO (10-20); Calcium,Total 9.3 mg/dL (7.6-11.0); Carbon Dioxide 19.6 mmol/L (21.0-32.0); Chloride 99 mmol/L (98-108); EST Glomerular Filtration Rate 63 (>60); Globulin 3.4 g/dL (2.2-4.2); Glucose 88 mg/dL (70-99); Potassium 4.3 mmol/L (3.3-5.1); Protein, Total 7.5 g/dL (5.9-8.4); Sodium Level 131 mmol/L (133-145); Total Bilirubin 0.25 mg/dL (0.00-1.30)
== END | disposition home or self-care (01) ==
PROVIDERS: PCP Nurse Practitioner; Referring Provider Nurse Practitioner; Visit Provider Nurse Practitioner
DX: E87.1 Hypo-osmolality and hyponatremia (principal)
CPT/HCPCS: 80053

== ENCOUNTER → 2024-07-14 | Outpatient (REF) | payer MEDICARE, SELFPAY ==
[2024-07-14 23:46] LABS: ALB/GLOB Ratio 1.3 RATIO (0.9-2.4); AST(SGOT) 21 U/L (<=31); Alanine Aminotransfer ALT/SGPT 15 U/L (<=34); Albumin, Serum 4.1 g/dL (3.4-4.8); Alkaline Phosphatase 162 U/L (35-104); Anion Gap 12 (5-15); BUN 14 mg/dL (4-19); BUN/Creat Ratio 14.9 RATIO (10-20); Calcium,Total 9.3 mg/dL (7.6-11.0); Carbon Dioxide 18.9 mmol/L (21.0-32.0); Chloride 94 mmol/L (98-108); Creatinine, Serum 0.94 mg/dL (0.70-1.20); EST Glomerular Filtration Rate 67 (>60); Globulin 3.3 g/dL (2.2-4.2); Glucose 102 mg/dL (70-99); Potassium 4.5 mmol/L (3.3-5.1); Protein, Total 7.5 g/dL (5.9-8.4); Sodium Level 125 mmol/L (133-145); Total Bilirubin 0.33 mg/dL (0.00-1.30)
== END ==
LOC: OLS.AHF 23:25
PROVIDERS: PCP Nurse Practitioner; Visit Provider Nurse Practitioner
DX: E87.1 Hypo-osmolality and hyponatremia (principal)
CPT/HCPCS: 80053

== ENCOUNTER → 2024-08-04 | Outpatient (CLI) | payer MEDICARE, SELFPAY ==
--- NOTE | 2024-08-04 10:00 | US_ITS ---
PROCEDURE: ABDOMEN LIMITED 08/04/2024 REASON FOR EXAM: ELEVATED ALK PHOS UPPER BACK PAIN COMPARISON: None available FINDINGS: The pancreas appears within limits without evidence of pancreatic ductal dilation seen. The liver measures 14.1 cm and appears diffusely heterogeneous in echogenicity. May represent hepatic steatosis or other hepatocellular disease. The liver surface contour appears smooth. No intrahepatic biliary ductal dilation seen. Hepatic color flow is present. Note of a hepatic cyst measuring 2.2 cm. The gallbladder appears within limits without stones, wall thickening or pericholecystic free fluid. Wall measures 2 mm. Report of a negative sonographic Shaffer's sign. CBD 4 mm. The right kidney measures 10.8 x 5 x 5.2 cm with a cortical thickness of 1.9 cm. No right hydronephrosis, renal stones or perinephric edema seen. No free fluid seen. US/Abdomen Limited IMPRESSION: The liver measures 14.1 cm and appears diffusely heterogeneous in echogenicity. May represent hepatic steatosis or other hepatocellular disease. The liver surface contour appears smooth. No intrahepatic biliary ductal dilation seen. The gallbladder appears within limits without stones, wall thickening or perich olecystic free fluid. Report of a negative sonographic Shaffer's sign. CBD 4 mm. Reading Location: [id number]
== END | disposition home or self-care (01) ==
LOC: US 09:57
PROVIDERS: PCP Nurse Practitioner; Referring Provider Nurse Practitioner; Visit Provider Nurse Practitioner
DX: R74.8 Abnormal levels of other serum enzymes (principal); M54.9 Dorsalgia, unspecified
CPT/HCPCS: 76705

== ENCOUNTER → 2024-08-14 | Outpatient (CLI) | payer MEDICARE, SELFPAY ==
[2024-08-14 23:16] LABS: ALB/GLOB Ratio 1.3 RATIO (0.9-2.4); AST(SGOT) 22 U/L (<=31); Alanine Aminotransfer ALT/SGPT 15 U/L (<=34); Albumin, Serum 4.4 g/dL (3.4-4.8); Alkaline Phosphatase 233 U/L (35-104); Anion Gap 13 (5-15); BUN 15 mg/dL (4-19); Calcium,Total 9.5 mg/dL (7.6-11.0); Carbon Dioxide 20.1 mmol/L (21.0-32.0); Chloride 99 mmol/L (98-108); Creatinine, Serum 0.86 mg/dL (0.70-1.20); EST Glomerular Filtration Rate 74 (>60); Globulin 3.3 g/dL (2.2-4.2); Glucose 98 mg/dL (70-99); Potassium 4.3 mmol/L (3.3-5.1); Protein, Total 7.7 g/dL (5.9-8.4); Sodium Level 132 mmol/L (133-145)
[2024-08-19 05:07] LABS: HEPATITIS B SURFACE AG Negative (Negative); Hepatitis A IgM Antibody Negative (Negative); Hepatitis B Core AB IgM Negative (Negative)
== END | disposition home or self-care (01) ==
LOC: OLS.AHF 22:02 → LABSPEC 08-15 09:44
PROVIDERS: PCP Nurse Practitioner; Referring Provider Nurse Practitioner; Visit Provider Nurse Practitioner
DX: E78.2 Mixed hyperlipidemia (principal); S06.309A Unspecified focal traumatic brain injury with loss of consciousness of unspecified duration, initial encounter; I10 Essential (primary) hypertension; E03.9 Hypothyroidism, unspecified; G44.021 Chronic cluster headache, intractable; R53.83 Other fatigue; S01.90XA Unspecified open wound of unspecified part of head, initial encounter; D50.8 Other iron deficiency anemias; R16.0 Hepatomegaly, not elsewhere classified; K82.9 Disease of gallbladder, unspecified; E87.1 Hypo-osmolality and hyponatremia
CPT/HCPCS: 80053; 84146; 86705; 86709; 87340

== ENCOUNTER → 2024-08-15 | Outpatient (CLI) | payer MEDICARE, SELFPAY ==
--- NOTE | 2024-08-15 09:59 | NM_ITS ---
PROCEDURE: HEPATOBILLIARY IMG W/PHARM INT 08/15/2024 REASON FOR EXAM: N, WEIGHTLOSS ,RUQ PAIN TECHNIQUE: Intravenous Choletec with planar imaging of the abdomen. 1.4 mcg Kinevac intravenously approximately 60 minutes after the radiopharmaceutical with additional anterior imaging and a region of interest drawn around the gallbladder to calculate a time-activity curve. RADIOPHARMACEUTICAL: Mebrofenin DOSE 4.8mCi COMPARISON: Prior sonogram dated August 04, 2024. FINDINGS: There is good uptake of the radiopharmaceutical by the liver. Normal gallbladder visualization with the gallbladder identified by 60 minutes. Gallbladder Ejection Fraction: 6 % (Normal is >35%) NM/Hepatobilliary Img w/Pharm Int IMPRESSION: Abnormal gallbladder ejection fraction. Reading Location: [place] [id number]
== END | disposition home or self-care (01) ==
LOC: NM 09:57
PROVIDERS: PCP Nurse Practitioner; Referring Provider Nurse Practitioner; Visit Provider Nurse Practitioner
DX: R63.4 Abnormal weight loss (principal); K82.9 Disease of gallbladder, unspecified; R11.0 Nausea; R16.0 Hepatomegaly, not elsewhere classified
CPT/HCPCS: 78227; A9537; J2805

== ENCOUNTER → 2024-08-21 | Outpatient (CLI) | payer MEDICARE, SELFPAY ==
--- OUTSIDE RECORDS SUMMARY | 2024-08-21 23:24 | XMS RPT_ITS | CCD ---
Author Organization [facility] Care Team Providers Care Mattress Stripper Name Role Phone Daniel RITIKA-MOLD CHANGER, Johnathon Unavailable Yarelis Aden MD Unavailable Crowder BOAT WORKER-C, Edie Primary Care Provider [phone] Crowder BOAT WORKER-C, Edie Attending Provider Crowder BOAT WORKER-C, Edie Referring Provider Crowder BOAT WORKER-C, Edie Primary Care Provider Crowder BOAT WORKER-C, Edie Attending Provider Crowder BOAT WORKER-C, Edie Referring Provider [phone] Crowder BOAT WORKER, Edie Referring Unavailable Crowder BOAT WORKER, Edie Primary Care Unavailable Nicholas Knapp Attending Unavailable Crowder BOAT WORKER, Edie Primary Care Unavailable Crowder BOAT WORKER, Edie Attending Unavailable Crowder BOAT WORKER, Edie Referring Unavailable Crowder BOAT WORKER, Edie Primary Care Unavailable Crowder BOAT WORKER, Edie Attending Unavailable Crowder BOAT WORKER, Edie Attending Unavailable Crowder BOAT WORKER, Edie Referring Unavailable Crowder BOAT WORKER, Edie Primary Care Unavailable Crowder BOAT WORKER, Edie Referring Unavailable Crowder BOAT WORKER, Edie Attending Unavailable Crowder BOAT WORKER, Edie Primary Care Unavailable Crowder BOAT WORKER, Edie Referring Unavailable Crowder BOAT WORKER, Edie Attending Unavailable Crowder BOAT WORKER, Edie Primary Care Unavailable Crowder BOAT WORKER, Edie Referring Unavailable Crowder BOAT WORKER, Edie Attending Unavailable Crowder BOAT WORKER, Edie Primary Care Unavailable Crowder BOAT WORKER, Edie Primary Care Unavailable Crowder BOAT WORKER, Edie Attending Unavailable Crowder BOAT WORKER, Edie Referring Unavailable Crowder BOAT WORKER, Edie Primary Care Unavailable Crowder BOAT WORKER, Edie Attending Unavailable Crowder BOAT WORKER, Edie Referring Unavailable Allergies Allergy Classification Reported Allergen(s) Allergy Type Date of Onset Reaction(s) Facility (7 sources) Penicillins Allergy to substance 8 Other [facility] (7 sources) Sulfonamides (Antibiotic) Allergy to substance 8 Chest tightness [facility] (1 source) Penicillins Drug allergy (disorder) 8 [facility] (1 source) Sulfonamides (Antibiotic) Drug allergy (disorder) 8 [facility] Medications Current Medications Medication Drug Class(es) Dates Sig (Normalized) Sig (Original) baclofen 5 mg oral tablet (1 source) gamma-Aminobutyri c Acid-ergic Agonist Start: 07-24-2024 Baclofen 5 mg tablet Active 5 mg PO THREE TIMES A DAY 90 July 24, 2024 12:00am May take 1-2 pills up to 3 x a day cetirizine hydrochloride 5 mg oral tablet (1 source) Histamine-1 Receptor Antagonist take 1 tablet by mouth once daily cetirizine (ZYRTEC) 5 MG tablet Take 5 mg by mouth daily. Active ezetimibe 10 mg oral tablet (4 sources) Dietary Cholesterol Absorption Inhibitor Start: 02-01-2024 take 1 tablet by mouth once daily Ezetimibe 10 mg tablet Active 10 mg PO daily February 01, 2024 1:00am melatonin 3 mg oral tablet (1 source) melatonin 3 MG T ABS tablet Take 3 mg by mouth. Active minoxidil 2.5 mg oral tablet (1 source) Arteriolar Vasodilator Start: 07-24-2024 take 1 tablet by mouth once daily Minoxidil 2.5 mg tablet Active 2.5 mg PO daily July 24, 2024 12:00am phenazopyridine hydrochloride 200 mg oral tablet (11 sources) Start: 01-29-2024 take 1 tablet by mouth three times daily as needed for pain Phenazopyridine (Pyridium) 200 mg tablet Active 200 mg PO THREE TIMES A DAY as needed for pain January 29, 2024 1:00am Start: 07-10-2019 End: 09-03-2019 take 1 tablet by mouth three times daily as needed for pain Phenazopyridine (Pyridium) 200 mg tablet Discontinued 200 mg PO THREE TIMES A DAY as needed for pain 9 July 10, 2019 12:00am September 03, 2019 6:10pm rimegepant 75 mg disintegrating oral tablet (1 source) Start: 04-21-2021 take 1 tablet by mouth every other day Rimegepant Sulfate 75 MG TBDP Take 75 mg by mouth every other day. For migraine prevention 16 Tablet 2 04/21/2021 Active spironolactone 100 mg oral tablet (4 sources) Aldosterone Antagonist Start: 02-01-2024 take 1 tablet by mouth once daily in the morning Spironolactone (Aldactone) 100 mg tablet Active 100 mg PO EVERY MORNING February 01, 2024 1:00am SUMAtriptan 100 mg oral tablet (4 sources) Serotonin-1b and Serotonin-1d Receptor Agonist Start: 05-15-2024 take 1 tablet by mouth every two hours Sumatriptan Succinate 100 mg tablet Active 0 PO .COMPLEX May 15, 2024 1:00am take 1 tab at onset of headache; if no relief, may repeat 1 tab after at least 2 hrs; max = 2 tabs/24 hrs PO topiramate 100 mg oral tablet (20 sources) Start: 04-28-2024 take 1 tablet by mouth twice daily Topiramate 100 mg tablet Active 100 mg PO TWICE A DAY April 28, 2024 1:00am Start: 02-01-2023 End: 08-06-2023 take 2 tablets by mouth twice daily Topiramate 25 mg tablet Discontinued 50 mg PO TWICE A DAY February 01, 2023 4:03pm August 06, 2023 4:04pm Start: 02-01-2023 take 50 mg by mouth twice guillermo y Topiramate Active 50 MG PO TWICE A DAY February 01, 2023 3:03pm Start: 06-07-2020 End: 04-28-2024 take 1 tablet by mouth twice daily Topiramate 50 mg tablet Discontinued 50 mg PO TWICE A DAY March 27, 2023 1:00am April 28, 2024 4:10pm Start: 12-19-2019 End: 01-14-2021 take 1 tablet by mouth once daily Topiramate 25 mg tablet Discontinued 25 mg PO DAILY December 19, 2019 12:00am January 14, 2021 3:39pm Start: 12-18-2019 End: 02-01-2023 take 1 tablet by mouth twice daily Topiramate 25 mg tablet Discontinued 25 mg PO TWICE A DAY 60 January 10, 2022 3:08pm February 01, 2023 4:03pm Completed/Discontinued Medications Medication Drug Class(es) Dates Sig (Normalized) Sig (Original) [id number] 200 actuat albuterol 0.09 mg/actuat metered dose inhaler (20 sources) beta2-Adrenergic Agonist Start: 11-20-2017 End: 01-29-2024 Albuterol Sulfate (Proair Hfa) 90 mcg/actuation HFA aerosol inhaler Discontinued 2 NMA INHALATION EVERY 6 HOURS as needed for shortness of breath or wheezing 8.February 01, 2023 4:04pm January 29, 2024 4:37pm Start: 11-20-2017 End: 02-01-2023 take 1 puff(s) by inhalation every six hours Albuterol Sulfate (Proair Hfa) 90 mcg/actuation HFA aerosol inhaler Discontinued 2 PUFF INHALATION EVERY 6 HOURS 8.January 10, 2022 2:06pm February 01, 2023 3:05pm Start: 11-20-2017 End: 11-20-2017 Albuterol Sulfate (Proair Hf a) 90 mcg/actuation HFA aerosol inhaler Discontinued 2 NMA INHALATION EVERY 6 HOURS as needed November 20, 2017 12:00am November 20, 2017 10:25am Start: 11-20-2017 End: 11-20-2017 take 1 puff(s) by inhalation every six hours Albuterol Sulfate (Proair Hfa) 90 mcg/actuation HFA aerosol inhaler Discontinued 2 PUFF INHALATION EVERY 6 HOURS November 19, 2017 11:00pm November 20, 2017 9:25am albuterol (PROVE NTIL HFA) INHALATION HFA inhaler (VENTOLIN,PROAIR,PROVENTIL) 90mcg Inhale 2 Puffs by mouth. Active atenolol 25 mg oral tablet (14 sources) beta-Adrenergic Jessy Start: 11-20-2017 End: 12-25-2017 take 1 tablet by mouth twice daily Atenolol 25 mg tablet Discontinued 25 mg PO TWICE A DAY 60 30 November 20, 2017 10:19am November 14, 2018 12:00am December 25, 2017 3:12pm atorvastatin 10 mg oral tablet (20 sources) HMG-CoA Reductase Inhibitor Start: 12-07-2018 End: 01-29-2024 take 1 tablet by mouth once daily Atorvastatin 10 mg tablet Discontinued 10 mg PO DAILY February 01, 2023 4:04pm January 29, 2024 4:32pm Start: 11-20-2017 End: 11-15-2018 take 1 tablet by mouth once daily Atorvastatin 10 mg tablet Discontinued 10 mg PO DAILY November 20, 2017 10:19am November 14, 2018 12:00am November 15, 2018 12:07am azithromycin 250 mg oral tablet (4 sources) Macrolide Antimicrobial Start: 08-06-2023 End: 08-11-2023 take 2 tablets by mouth once daily, then take 1 tablet by mouth once daily at mealtime Azithromycin 250 mg tablet Discontinued 250 mg PO daily 08 21August 06, 2023 12:00am August 10, 2023 12:00am August 11, 2023 12:12am 2 po qd for 1 day then 1 po qd for 4 days with food or after eating budesonide 0.032 mg/actuat metered dose nasal spray (14 sources) Corticosteroid Start: 11-20-2017 End: 10-31-2018 Budesonide (Rhinocort Allergy) 32 mcg/actuation spray,non-aerosol Discontinued 2 NMA INTRANASAL DAILY 8.43 November 20, 2017 10:20am November 14, 2018 12:00am October 31, 2018 8:00pm Start: 11-20-2017 End: 10-31-2018 Budesonide (Rhinocort Allerg y) 32 mcg/actuation spray,non- aerosol Discontinued 2 SPRAY INTRANASAL DAILY 8.43 November 20, 2017 9:20am October 31, 2018 7:00pm cephalexin 500 mg oral capsule (7 sources) Cephalosporin Antibacterial Start: 01-10-2022 End: 01-20-2022 take 1 capsule by mouth twice daily Cephalexin 500 mg capsule Discontinued 500 mg PO TWICE A DAY 05 01January 10, 2022 12:00am January 19, 2022 12:00am January 20, 2022 12:04am chlorzoxazone 500 mg oral tablet (20 sources) Muscle Relaxant Start: 12-07-2018 End: 01-29-2024 take 1 tablet by mouth three times daily Chlorzoxazone 500 mg tablet Discontinued 500 mg PO THREE TIMES A DAY February 01, 2023 4:04pm January 29, 2024 4:37pm Start: 11-20-2017 End: 06-18-2018 take 1 tablet by mouth twice daily Chlorzoxazone 500 mg tablet Discontinued 500 mg PO TWICE A DAY 60 30 November 20, 2017 10:20am June 17, 2018 12:00am June 18, 2018 12:07am ciprofloxacin 500 mg oral tablet (19 sources) Quinolone Antimicrobial Start: 02-26-2023 End: 08-06-2023 take 1 tablet by mouth twice daily Ciprofloxacin Hcl (Cipro) 500 mg tablet Discontinued 500 mg PO TWICE A DAY February 26, 2023 1:00am August 06, 2023 4:03pm Start: 07-10-2019 End: 09-03-2019 take 1 tablet by mouth twice daily Ciprofloxacin Hcl 500 mg tablet Discontinued 500 mg PO TWICE A DAY July 10, 2019 3:11pm September 03, 2019 6:10pm Start: 10-31-2018 End: 12-07-2018 take 1 tablet by mouth twice daily Ciprofloxacin Hcl 500 mg tablet Discontinued 500 mg PO TWICE A DAY October 31, 2018 12:00am December 07, 2018 11:54am clarithromycin 500 mg oral tablet (7 sources) Macrolide Antimicrobial Start: 12-25-2017 End: 10-31-2018 take 1 tablet by mouth twice daily Clarithromycin 500 mg tablet Discontinued 500 mg PO TWICE A DAY December 25, 2017 12:00am October 31, 2018 8:00pm dextromethorphan hydrobromide 2 mg/ml / guaiFENesin 20 mg/ml oral solution (20 sources) Uncompetitive G-caknsz-U-asparta te Receptor Antagonist, Sigma-1 Agonist Start: 01-10-2022 take 1 mL by mouth every four hours Dextromethorphan-Gu aifenesin (Siltussin Dm Martini) 10-100 mg/5 mL liquid Active 10 ML PO Q4H 500 January 10, 2022 3:07pm Start: 09-03-2019 End: 01-29-2024 take 1 mL by mouth every four hours as needed for cough Dextromethorphan-Guaifenesin (Siltussin Dm Martini) 10-100 mg/5 mL liquid Discontinued 10 mL PO Q4H as needed for cough February 01, 2023 4:04pm January 29, 2024 4:37pm Start: 09-03-2019 End: 02-01-2023 take 1 mL by mouth every four hours Dextromethorphan-Guaifenesin (Siltussin Dm Martini) 10-100 mg/5 mL liquid Discontinued 10 ML PO Q4H 500 January 10, 2022 2:07pm February 01, 2023 3:05pm DULoxetine 60 mg delayed release oral capsule (20 sources) Serotonin and Norepinephrine Reuptake Inhibitor Start: 12-07-2018 End: 01-29-2024 take 1 capsule by mouth twice daily Duloxetine 60 mg capsule,delayed release(DR/EC) Discontinued 60 mg PO TWICE A DAY 60 February 01, 2023 4:04pm January 29, 2024 4:37pm Start: 11-20-2017 End: 11-15-2018 take 1 capsule by mouth twice daily Duloxetine 60 mg capsule,delayed release(DR/EC) Discontinued 60 mg PO TWICE A DAY 60 November 20, 2017 10:22am November 14, 2018 12:00am November 15, 2018 12:07am fluticasone propionate 0.05 mg/actuat metered dose nasal spray (20 sources) Corticosteroid Start: 10-31-2018 End: 01-29-2024 Fluticasone Propionate (Flonase Allergy Relief) 50 mcg/actuation spray,suspension Discontinued 2 NMA INTRANASAL DAILY 19.8 February 01, 2023 4:04pm January 29, 2024 4:37pm Start: 10-31-2018 End: 02-01-2023 Fluticasone Propionate (Flon ase Allergy Relief) 50 mcg/actuation spray,suspension Discontinued 2 SPRAY INTRANASAL DAILY 19.8 January 10, 2022 2:07pm February 01, 2023 3:05pm 1.5 ml fremanezumab-vfrm 150 mg/ml auto-injector (8 sources) Start: 01-14-2021 End: 01-10-2022 Fremanezumab-Vfrm (Ajovy Autoinjector) 225 mg/1.5 mL auto-injector Discontinued 225 mg SC EVERY MONTH 1.5 January 14, 2021 12:00am January 10, 2022 2:59pm Start: 09-21-2020 fremanezumab-v frm (AJOVY) 225 MG/1.5ML SOSY injection Inject 225 mg under the skin once a month. Administer SQ in the abdomen, thigh or upper arm.Store in the refrigerator. Must be used within 24 hours once removed from the refrigerator. Must sit 30 min at room temperature before administration. Do not shake. 1.68 mg 3 09/21/2020 Active hydroCHLOROthiazide 25 mg oral tablet (20 sources) Thiazide Diuretic Start: 12-07-2018 End: 01-29-2024 take 1 tablet by mouth once daily in the morning Hydrochlorothiazide 25 mg tablet Discontinued 25 mg PO EVERY MORNING February 01, 2023 4:04pm January 29, 2024 4:37pm Start: 11-20-2017 End: 11-15-2018 take 1 tablet by mouth once daily Hydrochlorothiazide 25 mg tablet Discontinued 25 mg PO DAILY November 20, 2017 10:22am November 14, 2018 12:00am November 15, 2018 12:07am levETIRAcetam 1000 mg oral tablet (20 sources) Start: 08-30-2019 End: 01-10-2022 take 1 tablet by mouth twice daily Levetiracetam 1,000 mg tablet Discontinued 1000 mg PO TWICE A DAY January 14, 2021 3:41pm January 10, 2022 3:01pm levothyroxine sodium 0.137 mg oral tablet (20 sources) l-Thyroxi ne Start: 02-02-2023 End: 04-28-2024 take 1 tablet by mouth once daily Levothyroxine 137 mcg tablet Discontinued 137 ug PO DAILY March 30, 2023 2:17pm April 28, 2024 4:10pm Start: 01-16-2022 End: 02-02-2023 take 1 tablet by mouth once daily Levothyroxine 125 mcg tablet Discontinued 125 ug PO DAILY January 16, 2022 12:00am February 02, 2023 2:11pm Start: 12-07-2018 End: 01-16-2022 take 1 tablet by mouth once daily Levothyroxine 137 mcg tablet Discontinued 137 ug PO DAILY December 11, 2018 12:19pm December 18, 2019 5:52pm Start: 11-20-2017 End: 11-15-2018 take 1 capsule by mouth once daily Levothyroxine 137 mcg capsule Discontinued 137 ug PO DAILY November 20, 2017 10:23am November 14, 2018 12:00am November 15, 2018 12:07am metoprolol tartrate 100 mg oral tablet (20 sources) beta-Adrenergic Jessy Start: 12-25-2017 End: 01-29-2024 take 1 tablet by mouth twice daily Metoprolol Tartrate 100 mg tablet Discontinued 100 mg PO TWICE A DAY February 01, 2023 4:04pm January 29, 2024 4:37pm montelukast 10 mg oral tablet (20 sources) Leukotriene Receptor Antagonist Start: 12-07-2018 End: 01-29-2024 take 1 tablet by mouth once daily in the evening Montelukast 10 mg tablet Discontinued 10 mg PO EVERY EVENING February 01, 2023 4:04pm January 29, 2024 4:37pm Start: 11-20-2017 End: 11-15-2018 take 1 tablet by mouth once daily in the evening Montelukast 10 mg tablet Discontinued 10 mg PO EVERY EVENING November 20, 2017 10:23am November 14, 2018 12:00am November 15, 2018 12:07am oxyCODONE hydrochloride 5 mg oral tablet (7 sources) Opioid Agonist Start: 09-03-2019 End: 12-18-2019 take 1 tablet by mouth twice daily as needed Oxycodone 5 mg tablet Discontinued 5 mg PO TWICE A DAY as needed September 03, 2019 12:00am December 18, 2019 5:47pm pantoprazole 40 mg delayed release oral tablet (20 sources) Proton Pump Inhibitor Start: 01-14-2021 End: 01-29-2024 take 1 tablet by mouth once daily Pantoprazole 40 mg tablet,delayed release (DR/EC) Discontinued 40 mg PO DAILY February 01, 2023 4:04pm January 29, 2024 4:37pm microencapsulated potassium chloride 20 meq extended release oral tablet (20 sources) Start: 01-10-2022 End: 01-29-2024 take 1 tablet by mouth once daily Potassium Chloride 20 mEq tablet,ER particles/crystals Discontinued 20 meq PO DAILY February 01, 2023 4:05pm January 29, 2024 4:37pm Start: 01-17-2021 End: 01-10-2022 take 1 tablet by mouth twice daily Potassium Chloride 20 mEq tablet,ER particles/crystals Discontinued 20 meq PO TWICE A DAY January 17, 2021 12:00am January 10, 2022 3:02pm predniSONE 20 mg oral tablet (4 sources) Start: 08-06-2023 End: 01-29-2024 take 2 tablets by mouth once daily Prednisone 20 mg tablet Discontinued 40 mg PO DAILY August 06, 2023 12:00am January 29, 2024 4:33pm promethazine hydrochloride 12.5 mg oral tablet (20 sources) Phenothiazine Start: 10-31-2018 End: 01-29-2024 take 1 tablet by mouth every four hours as needed for nausea and vomiting Promethazine 12.5 mg tablet Discontinued 12.5 mg PO Q4H as needed for nausea and vomiting February 01, 2023 4:05pm January 29, 2024 4:37pm sertraline 50 mg oral tablet (20 sources) Serotonin Reuptake Inhibitor Start: 12-07-2018 End: 01-29-2024 take 1 tablet by mouth once daily Sertraline 100 mg tablet Discontinued 100 mg PO daily February 01, 2023 4:05pm January 29, 2024 4:37pm Start: 12-07-2018 End: 01-29-2024 take 1 tablet by mouth at bedtime Sertraline 50 mg tablet Discontinued 50 mg PO AT BEDTIME February 01, 2023 4:05pm January 29, 2024 4:37pm Start: 11-20-2017 End: 11-15-2018 take 1 tablet by mouth once daily Sertraline 100 mg tablet Discontinued 100 mg PO DAILY November 20, 2017 10:23am November 14, 2018 12:00am November 15, 2018 12:07am Start: 11-20-2017 End: 11-15-2018 take 1 tablet by mouth once daily Sertraline 50 mg tablet Discontinued 50 mg PO DAILY November 20, 2017 10:24am November 14, 2018 12:00am November 15, 2018 12:07am Problems Active Problems Problem Classification Problem Date Documented Date Episodic/Chronic Biliary tract disease (1 source) Disorder of gallbladder; Translations: [Disease of gallbladder, unspecified] 07-24-2024 Episodic Chronic obstructive pulmonary disease and bronchiectasis (7 sources) Bronchitis; Translations: [Bronchitis, not specified as acute or chronic] 08-27-2019 Episodic Deficiency and other anemia (4 sources) Anemia; Translations: [Anemia, unspecified] 05-08-2024 Episodic Disorders of lipid metabolism (13 sources) Hyperlipidemia; Translations: [Hyperlipidemia, unspecified] Onset: 05-14-2024 08-27-2019 Chronic Epilepsy; convulsions (7 sources) Status epilepticus; Translations: [Epilepsy, unspecified, not intractable, with status epilepticus] 08-28-2019 Chronic Epilepsy; convulsions (7 sources) Seizure; Translations: [Unspecified convulsions] 09-03-2019 Episodic Esophageal disorders (7 sources) Gastroesophageal reflux disease; Translations: [Gastro-esophageal reflux disease without esophagitis] 02-01-2023 Chronic Essential hypertension (7 sources) Hypertensive disorder; Translations: [Essential (primary) hypertension] 08-27-2019 Chronic Fever of unknown origin (7 sources) Fever; Translations: [Fever, unspecified] 08-27-2019 Episodic Fluid and electrolyte disorders (5 sources) Hyponatremia; Translations: [Hypo-osmolality and hyponatremia] Onset: 07-18-2024 05-08-2024 Episodic Headache; including migraine (7 sources) Chronic headache disorder; Translations: [Chronic headache disorder] 02-01-2023 Episodic Intracranial injury (20 sources) Intracranial hemorrhage following injury with open intracranial wound AND concussion; Translations: [Intracran bleed after injury with open intracran wound and concussion] 09-03-2019 Episodic Malaise and fatigue (7 sources) Fatigue; Translations: [Other fatigue] 09-03-2019 Episodic Nausea and vomiting (7 sources) Nausea; Translations: [Nausea] 08-27-2019 Episodic Other connective tissue disease (7 sources) Fibromyalgia; Translations: [Fibromyalgia] 08-27-2019 Episodic Other liver diseases (1 source) Abnormal levels of other serum enzymes; Translations: [Abnormal levels of other serum enzymes] Onset: 08-06-2024 Episodic Other lower respiratory disease (4 sources) Dyspnea; Translations: [Shortness of breath] 08-07-2023 Episodic Other nutritional; endocrine; and metabolic disorders (1 source) Abnormal weight loss; Translations: [Abnormal weight loss] Onset: 08-19-2024 Episodic Other upper respiratory infections (7 sources) Maxillary sinusitis; Translations: [Chronic maxillary sinusitis] 08-27-2019 Chronic Residual codes; unclassified (7 sources) Edema; Translations: [Edema, unspecified] 08-27-2019 Episodic Spondylosis; intervertebral disc disorders; other back problems (7 sources) Low back pain; Translations: [Low back pain] 08-27-2019 Episodic Thyroid disorders (7 sources) Acquired hypothyroidism; Translations: [Hypothyroidism, unspecified] 08-27-2019 Chronic Past or Other Problems Problem Classification Problem Date Documented Da te Episodic/Chronic Unclassified (7 sources) history of surgery bursitis 10-13-2021 Comment on above: scar tissue right hi p joing Urinary tract infections (15 sources) Acute pyelonephritis; Translations: [Acute pyelonephritis] Onset: 02-26-2024 08-27-2019 Episodic Results Test Name Value Interpretation Reference Range Facility Hepatitis Profile I Diagon 0 08-19-2024 HEP B CORE,IgM Negative Normal Negative [facility] Comment on above: Performed By: #### L [id number] #### [facility] [address] [place], [address] HEP B SURF AG Negative Normal Negative [facility] Comment on above: Performed By: #### L [id number] #### [facility] [address] [place], [address] HEPATITIS A-IgM Negative Normal Negative [facility] Comment on above: Result Comment: A ne gative anti-HAV IgM result suggests no recent or current HAV infection. Performed By: #### L [id number] #### [facility] [address] [place], [address] Hepatobilliary Img w/Pharm I nton 08-15-2024 Hepatobilliary Img w/Pharm Int [facility] [address] [place] [address] Hepatobilliary Img w/Pharm Int MR#: [id number] Acct: [id number] Name: CARLA BLACKMON Rep #: [id number] : [id number] F 64 From: Harjit elizalde MD PCP: Edie Crowder BOAT WORKER-C Status: REG CLI Study: Hepatobilliary Img w/Pharm Int Date of Exam: 0 08/15/24 Exam# [id number] Ordering Dr: Edie Crowder NP N P-C PROCEDURE: HEPATOBILLIARY IMG W/PHARM INT 08/15/2024 REASON FOR EXAM: N, WEIGHTLOSS ,RUQ PAIN TECHNIQUE: Intravenous Choletec with planar imaging of the abdomen. 1.4 mcg Kinevac intravenously approximately 60 minutes after the radiopharmaceutical with additional anterior imaging and a region of interest drawn around the gallbladder to calculate a time-activity curve. RADIOPHARMACEUTICAL: Mebrofenin DOSE 4.8mCi COMPARISON: Prior sonogram dated August 04, 2024. FINDINGS: There is good uptake of the radiopharmaceutical by the liver. Normal gallbladder visualization with the gallbladder identified by 60 minutes. Gallbladder Ejection Fraction: 6 % (Normal is >35%) NM/Hepatobilliary Img w/Pharm Int IMPRESSION: Abnormal gallbladder ejection fraction. Reading Location: [place] [address] CC: BOAT WORKER-C Edie Crowder Sugar Grinder: Signed Normal [facility] Abdomen Limitedon 08-04-2024 Abdomen Limited [facility] [address] [place] [address] [id number] Abdomen Limited MR#: [id number] Acct: [id number] Name: CARLA BLACKMON Rep #: [id number] : [id number] F 64 From: Baljeet Pruitt MD PCP: SAMARA Hogan Status: DEP CLI Study: Abdomen Limited Date of Exam: 08/04/24 Exam# [id number] Ordering Dr: Edie Crowder NP P-C PROCEDURE: ABDOMEN LIMITED 08/04/2024 REASON FOR EXAM: ELEVATED ALK PHOS UPPER BACK PAIN COMPARISON: None available FINDINGS: The pancreas appears within limits without evidence of pancreatic ductal dilation seen. The liver measures 14.1 cm and appears diffusely heterogeneous in echogenicity. May represent hepatic steatosis or other hepatocellular disease. The liver surface contour appears smooth. No intrahepatic biliary ductal dilation seen. Hepatic color flow is present. Note of a hepatic cyst measuring 2.2 cm. The gallbladder appears within limits without stones, wall thickening or pericholecystic free fluid. Wall measures 2 mm. Report of a negative sonographic Shaffer's sign. CBD 4 mm. The right kidney measures 10.8 x 5 x 5.2 cm with a cortical thickness of 1.9 cm. No right hydronephrosis, renal stones or perinephric edema seen. No free fluid seen. US/Abdomen Limited IMPRESSION: The liver measures 14.1 cm and appears diffusely heterogeneous in echogenicity. May represent hepatic steatosis or other hepatocellular disease. The liver surface contour appears smooth. No intrahepatic biliary ductal dilation seen. The gallbladder appears within limits without stones, wall thickening or pericholecystic free fluid. Report of a negative sonographic Shaffer's sign. CBD 4 mm. Reading Location: [id number] CC: SAMARA Crowder Sugar Grinder: Signed Normal [facility] Anion gap in Serum or Plasma Ordered By: Edie Crowder on 07-14-2024 Anion gap [Moles/Vol] 12 mmol/L 5-15 [facility] BUN/creatinine ratioOrdered By: Edie Crowder on 07-14-2024 Urea nitrogen/Creatinine [Mass ratio] 14.9 mg/mg 10-20 [facility] Bilirubin, totalOrdered By: Edie Crowder on 07-14-2024 Bilirubin [Mass/Vol] 0.33 mg/dL Normal 0.00-1.30 [facility] Comment on above: Performed By: #### L 500.4050 #### [facility] [address] [place], [place], [id number] Carbon dioxide, total [Moles /volume] in Central venous bloodOrdered By: Edie Crowder on 07-14-2024 CO2 [Moles/Vol] 18.9 mmol/L Low 21.0-32.0 [facility] Comment on above: Performed By: #### L [id number] #### [facility] [address] [place], [address] Chloride assayOrdered By: Do ra Crowder on 07-14-2024 Chloride [Moles/Vol] 94 mmol/L Low 98-108 [facility] Comment on above: Performed By: #### L [id number] #### [facility] [address] [place], [address] Comprehensive Metabolic Prof ilon 07-14-2024 ALK PHOS 162 U/L High 35-104 [facility] Comment on above: Performed By: #### L [id number] #### [facility] [address] [place], [place], [id number] BUN/CRE 14.9 RATIO Normal 10-20 [facility] Comment on above: Performed By: #### L [id number] #### [facility] [address] [place], [address] GAP 12 Normal 5-15 [facility] Comment on above: Performed By: #### L [id number] #### [facility] [address] [place], [place], [id number] T PROT 7.5 g/dL Normal 5.9-8.4 [facility] Comment on above: Performed By: #### L [id number] #### [facility] [address] [place], [place], [address] Comprehensive Metabolic Prof ilOrdered By: Edie Crowder on 07-14-2024 AST [Catalytic activity/Vol] 21 U/L Normal <=31 [facility] Comment on above: Performed By: #### L [id number] #### [facility] [address] [place], [address] GFR/1.73 sq M.predicted brennan g non-blacks MDRD (S/P/Bld) [Vol rate/Area]Ordered By: Edie Crowder on 07-14-2024 Estimated GFR (MDRD) Non-Af Amer 67 >60 [facility] Comment on above: mL/min/1.73m2 CKD-EP I Creatinine Equation (2020) Glomerular filtration rate ( GFR) estimation/1.73 sq m using serum, plasma, or whole bOrdered By: Edie Crowder on 07-14-2024 GFR/1.73 sq M.predicted among non-blacks MDRD (S/P/Bld) [Vol rate/Area] 67 mL/min/{1.73_m2} Normal >60 [facility] Comment on above: mL/min/1.73m2 CKD-EP I Creatinine Equation (2020) Result Comment: mL/m in/1.73m2 CKD-EPI Creatinine Equation (2020) Performed By: #### L [id number] #### [facility] [address] [place], [address] Potassium measurement (mass/ volume)Ordered By: Edie Crowder on 07-14-2024 Potassium [Moles/Vol] 4.5 mmol/L Normal 3.3-5.1 [facility] Comment on above: Performed By: #### L [id number] #### [facility] [address] [place], [address] Potassium (Unsp spec) [Mass/Vol] 4.5 mmol/L 3.3-5.1 [facility] Serum creatinine measurement (mass/volume)Ordered By: Edie Crowder on 07-14-2024 Creatinine [Mass/Vol] 0.94 mg/dL Normal 0.70-1.20 [facility] Comment on above: Performed By: #### L [id number] #### [facility] [address] [place], [address] Serum globulin measurementOr dered By: Edie Crowder on 07-14-2024 Globulin (S) [Mass/Vol] 3.3 g/dL Normal 2.2-4.2 [facility] Comment on above: Performed By: #### L [id number] #### [facility] [address] [place], [address] Serum glucose measurement (m ass/volume)Ordered By: Edie Crowder on 07-14-2024 Glucose [Mass/Vol] 102 mg/dL High 70-99 [facility] Comment on above: Performed By: #### L [id number] #### [facility] [address] [place], [address] Serum or plasma alanine chang otransferase (ALT) measurementOrdered By: Edie Crowder on 07-14-2024 ALT [Catalytic activity/Vol] 15 U/L Normal <=34 [facility] Comment on above: Performed By: #### L [id number] #### [facility] [address] [place], [address] Serum or plasma albumin shonna urement (mass/volume)Ordered By: Edie Crowder on 07-14-2024 Albumin [Mass/Vol] 4.1 g/dL Normal 3.4-4.8 [facility] Comment on above: Performed By: #### L [id number] #### [facility] [address] [place], [address] Serum or plasma albumin/glob ulin mass ratioOrdered By: Edie Crowder on 07-14-2024 Albumin/Globulin [Mass ratio] 1.3 {ratio} Normal 0.9-2.4 [facility] Comment on above: Performed By: #### L [id number] #### [facility] [address] [place], [address] Serum or plasma alkaline addie sphatase measurementOrdered By: Edie Crowder on 07-14-2024 ALP [Catalytic activity/Vol] 162 U/L High 35-104 [facility] Serum or plasma calcium shonna urement (mass/volume)Ordered By: Edie Crowder on 07-14-2024 Calcium [Mass/Vol] 9.3 mg/dL Normal 7.6-11.0 [facility] Comment on above: Performed By: #### L [id number] #### [facility] [address] [place], [address] Serum or plasma urea nitroge n measurement (mass/volume)Ordered By: Edie Crowder on 07-14-2024 Urea nitrogen [Mass/Vol] 14 mg/dL Normal 4-19 [facility] Comment on above: Performed By: #### L [id number] #### [facility] [address] [place], [place], [address] Sodium levelOrdered By: Edie Crowder on 07-14-2024 Sodium [Moles/Vol] 125 mmol/L Low 133-145 [facility] Comment on above: Performed By: #### L [id number] #### [facility] [address] [place], [place], [id number] Total proteinOrdered By: Adolph Crowder on 07-14-2024 Protein [Mass/Vol] 7.5 g/dL 5.9-8.4 [facility] Anion gap in Serum or Plasma Ordered By: Edie Crowder on 06-05-2024 Anion gap [Moles/Vol] 12 mmol/L - [facility] BUN/creatinine ratioOrdered By: Edie Crowder on 06-05-2024 Urea nitrogen/Creatinine [Mass ratio] 13.3 mg/mg 01-05 [facility] Bilirubin, totalOrdered By: Edie Crowder on 06-05-2024 Bilirubin [Mass/Vol] 0.25 mg/dL 0.00-1.30 [facility] Carbon dioxide, total [Moles /volume] in Central venous bloodOrdered By: Edie Crowder on 06-05-2024 CO2 [Moles/Vol] 19.6 mmol/L Low 21.0-32.0 [facility] Chloride assayOrdered By: Do ra Crowder on 06-05-2024 Chloride [Moles/Vol] 99 mmol/L 98-108 [facility] Comprehensive Metabolic Prof ilon 06-05-2024 Albumin [Mass/Vol] 4.2 g/dL Normal 3.4-4.8 [facility] Comment on above: Order Comment: LAB.S PEC Performed By: #### L [id number] #### [facility] [address] [place], [place], [id number] Albumin/Globulin [Mass ratio] 1.2 {ratio} Normal 0.9-2.4 [facility] Comment on above: Order Comment: LAB.S PEC Performed By: #### L [id number] #### [facility] [address] [place], [address] ALK PHOS 147 U/L High 35-104 [facility] Comment on above: Order Comment: LAB.S PEC Performed By: #### L [id number] #### [facility] [address] [place], [address] ALT [Catalytic activity/Vol] 17 U/L Normal <=34 [facility] Comment on above: Order Comment: LAB.S PEC Performed By: #### L [id number] #### [facility] [address] [place], [address] AST [Catalytic activity/Vol] 21 U/L Normal <=31 [facility] Comment on above: Order Comment: LAB.S PEC Performed By: #### L [id number] #### [facility] [address] [place], [address] Bilirubin [Mass/Vol] 0.25 mg/dL Normal 0.00-1.30 [facility] Comment on above: Order Comment: LAB.S PEC Performed By: #### L [id number] #### [facility] [address] [place], [address] BUN/CRE 13.3 RATIO Normal 10-20 [facility] Comment on above: Order Comment: LAB.S PEC Performed By: #### L [id number] #### [facility] [address] [place], [address] Calcium [Mass/Vol] 9.3 mg/dL Normal 7.6-11.0 [facility] Comment on above: Order Comment: LAB.S PEC Performed By: #### L [id number] #### [facility] [address] [place], [address] Chloride [Moles/Vol] 99 mmol/L Normal 98-108 [facility] Comment on above: Order Comment: LAB.S PEC Performed By: #### L [id number] #### [facility] [address] [place], [address] CO2 [Moles/Vol] 19.6 mmol/L Low 21.0-32.0 [facility] Comment on above: Order Comment: LAB.S PEC Performed By: #### L [id number] #### [facility] [address] [place], [address] Creatinine [Mass/Vol] 1.00 mg/dL Normal 0.70-1.20 [facility] Comment on above: Order Comment: LAB.S PEC Performed By: #### L [id number] #### [facility] [address] [place], [address] GAP 12 Normal 5-15 [facility] Comment on above: Order Comment: LAB.S PEC Performed By: #### L [id number] #### [facility] [address] [place], [address] GFR/1.73 sq M.predicted among non-blacks MDRD (S/P/Bld) [Vol rate/Area] 63 mL/min/{1.73_m2} Normal >60 [facility] Comment on above: Order Comment: LAB.S PEC Result Comment: mL/m in/1.73m2 CKD-EPI Creatinine Equation (2020) Performed By: #### L [id number] #### [facility] [address] [place], [address] Globulin (S) [Mass/Vol] 3.4 g/dL Normal 2.2-4.2 [facility] Comment on above: Order Comment: LAB.S PEC Performed By: #### L [id number] #### [facility] [address] [place], [address] Glucose [Mass/Vol] 88 mg/dL Normal 70-99 [facility] Comment on above: Order Comment: LAB.S PEC Performed By: #### L [id number] #### [facility] [address] [place], [address] Potassium [Moles/Vol] 4.3 mmol/L Normal 3.3-5.1 [facility] Comment on above: Order Comment: LAB.S PEC Performed By: #### L [id number] #### [facility] [address] [place], [address] Sodium [Moles/Vol] 131 mmol/L Low 133-145 [facility] Comment on above: Order Comment: LAB.S PEC Performed By: #### L [id number] #### [facility] [address] [place], [address] T PROT 7.5 g/dL Normal 5.9-8.4 [facility] Comment on above: Order Comment: LAB.S PEC Performed By: #### L [id number] #### [facility] [address] [place], [address] Urea nitrogen [Mass/Vol] 13 mg/dL Normal 4-19 [facility] Comment on above: Order Comment: LAB.S PEC Performed By: #### L [id number] #### [facility] [address] [place], [address] GFR/1.73 sq M.predicted brennan g non-blacks MDRD (S/P/Bld) [Vol rate/Area]Ordered By: Edie Crowder on 06-05-2024 Estimated GFR (MDRD) Non-Af Amer 63 >60 [facility] Comment on above: mL/min/1.73m2 CKD-EP I Creatinine Equation (2020) Glomerular filtration rate ( GFR) estimation/1.73 sq m using serum, plasma, or whole bOrdered By: Edie Crowder on 06-05-2024 GFR/1.73 sq M.predicted among non-blacks MDRD (S/P/Bld) [Vol rate/Area] 63 mL/min/{1.73_m2} >60 [facility] Comment on above: mL/min/1.73m2 CKD-EP I Creatinine Equation (2020) Laboratory - Chemistry and C hemistry - challengeOrdered By: Edie Crowder on 06-05-2024 AST [Catalytic activity/Vol] 21 U/L <32 [facility] Potassium (Unsp spec) [Mass/ Vol]Ordered By: Edie Crowder on 06-05-2024 Potassium [Moles/Vol] 4.3 mmol/L 3.3-5.1 [facility] Potassium measurement (mass/ volume)Ordered By: Edie Crowder on 06-05-2024 Potassium (Unsp spec) [Mass/Vol] 4.3 mmol/L 3.3-5.1 [facility] Serum creatinine measurement (mass/volume)Ordered By: Edie Crowder on 06-05-2024 Creatinine [Mass/Vol] 1.00 mg/dL 0.70-1.20 [facility] Serum globulin measurementOr dered By: Edie Crowder on 06-05-2024 Globulin (S) [Mass/Vol] 3.4 g/dL 2.2-4.2 [facility] Serum glucose measurement (m ass/volume)Ordered By: Edie Crowder on 06-05-2024 Glucose [Mass/Vol] 88 mg/dL 70-99 [facility] Serum or plasma alanine chang otransferase (ALT) measurementOrdered By: Edie Crowder on 06-05-2024 ALT [Catalytic activity/Vol] 17 U/L <35 [facility] Serum or plasma albumin shonna urement (mass/volume)Ordered By: Edie Crowder on 06-05-2024 Albumin [Mass/Vol] 4.2 g/dL 3.4-4.8 [facility] Serum or plasma albumin/glob ulin mass ratioOrdered By: Edie Crowder on 06-05-2024 Albumin/Globulin [Mass ratio] 1.2 {ratio} 0.9-2.4 [facility] Serum or plasma alkaline addie sphatase measurementOrdered By: Edie Crowder on 06-05-2024 ALP [Catalytic activity/Vol] 147 U/L High 35-104 [facility] Serum or plasma calcium shonna urement (mass/volume)Ordered By: Edie Crowder on 06-05-2024 Calcium [Mass/Vol] 9.3 mg/dL 7.6-11.0 [facility] Serum or plasma urea nitroge n measurement (mass/volume)Ordered By: Edie Crowder on 06-05-2024 Urea nitrogen [Mass/Vol] 13 mg/dL 4-19 [facility] Sodium levelOrdered By: Edie Crowder on 06-05-2024 Sodium [Moles/Vol] 131 mmol/L Low 133-145 [facility] Total proteinOrdered By: Adolph Crowder on 06-05-2024 Protein [Mass/Vol] 7.5 g/dL 5.9-8.4 [facility] BUN/creatinine ratioOrdered By: Edie Crowder on 05-15-2024 Urea nitrogen/Creatinine [Mass ratio] 13.6 mg/mg 10-20 [facility] Bilirubin, totalOrdered By: Edie Crowdre on 05-15-2024 Bilirubin [Mass/Vol] 0.28 mg/dL 0.00-1.30 [facility] Carbon dioxide measurementOr dered By: Edie Crowder on 05-15-2024 CO2 [Moles/Vol] 21.7 mmol/L Low 22.0-29.0 [facility] Chloride measurementOrdered By: Edie Crowder on 05-15-2024 Chloride [Moles/Vol] 87 mmol/L Low 96-108 [facility] Comprehensive Metabolic Prof ilon 05-15-2024 Albumin [Mass/Vol] 4.4 g/dL Normal 3.4-4.8 [facility] Comment on above: Performed By: #### L 3000.0350 #### [facility] [address] [place], [place], [id number] Albumin/Globulin [Mass ratio] 1.3 {ratio} Normal 0.9-2.4 [facility] Comment on above: Performed By: #### L 3000.0350 #### [facility] [address] [place], [address] ALK PHOS 144 U/L High 35-104 [facility] Comment on above: Performed By: #### L [id number] #### [facility] [address] [place], [address] ALT [Catalytic activity/Vol] 15 U/L Normal <=34 [facility] Comment on above: Performed By: #### L 3000.0350 #### [facility] [address] [place], [address] Anion gap [Moles/Vol] 12 mmol/L Normal 5-15 [facility] Comment on above: Performed By: #### L [id number] #### [facility] [address] [place], [address] AST [Catalytic activity/Vol] 25 U/L Normal <=31 [facility] Comment on above: Performed By: #### [id number] #### [facility] [address] [place], [address] Bilirubin [Mass/Vol] 0.28 mg/dL Normal 0.00-1.30 [facility] Comment on above: Performed By: #### L [id number] #### [facility] [address] [place], [address] BUN/CRE 13.6 RATIO Normal 10-20 [facility] Comment on above: Performed By: #### [id number] #### [facility] [address] [place], [address] Calcium [Mass/Vol] 9.7 mg/dL Normal 7.6-11.0 [facility] Comment on above: Performed By: #### [id number] #### [facility] [address] [place], [address] Chloride [Moles/Vol] 87 mmol/L Low 96-108 [facility] Comment on above: Performed By: #### L [id number] #### [facility] [address] [place], [address] CO2 [Moles/Vol] 21.7 mmol/L Low 22.0-29.0 [facility] Comment on above: Performed By: #### L 3000.0350 #### [facility] [address] [place], [address] Creatinine [Mass/Vol] 0.94 mg/dL Normal 0.70-1.20 [facility] Comment on above: Performed By: #### L 3000.0350 #### [facility] [address] [place], [address] GFR/1.73 sq M.predicted among non-blacks MDRD (S/P/Bld) [Vol rate/Area] 67 mL/min/{1.73_m2} Normal >60 [facility] Comment on above: Result Comment: mL/m in/1.73m2 CKD-EPI Creatinine Equation (2020) Performed By: #### L 3000.0350 #### [facility] [address] [place], [address] Globulin (S) [Mass/Vol] 3.4 g/dL Normal 2.2-4.2 [facility] Comment on above: Performed By: #### L 3000.0350 #### [facility] [address] [place], [address] Glucose [Mass/Vol] 75 mg/dL Normal 70-99 [facility] Comment on above: Performed By: #### L 3000.0350 #### [facility] [address] [place], [address] Potassium [Moles/Vol] 4.5 mmol/L Normal 3.3-5.1 [facility] Comment on above: Performed By: #### L 3000.0350 #### [facility] [address] [place], [address] Sodium [Moles/Vol] 121 mmol/L Low 133-145 [facility] Comment on above: Performed By: #### L 3000.0350 #### [facility] [address] [place], [address] T PROT 7.8 g/dL Normal 5.9-8.4 [facility] Comment on above: Performed By: #### L 3000.0350 #### [facility] [address] [place], [address] Urea nitrogen [Mass/Vol] 13 mg/dL Normal 4-19 [facility] Comment on above: Performed By: #### L 3000.0350 #### [facility] [address] [place], [place], [address] GFR/1.73 sq M.predicted brennan g non-blacks MDRD (S/P/Bld) [Vol rate/Area]Ordered By: Edie Crowder on 05-15-2024 Estimated GFR (MDRD) Non-Af Amer 67 >60 [facility] Comment on above: mL/min/1.73m2 CKD-EP I Creatinine Equation (2020) Glomerular filtration rate ( GFR) estimation/1.73 sq m using serum, plasma, or whole bOrdered By: Edie Crowder on 05-15-2024 GFR/1.73 sq M.predicted among non-blacks MDRD (S/P/Bld) [Vol rate/Area] 67 mL/min/{1.73_m2} >60 [facility] Comment on above: mL/min/1.73m2 CKD-EP I Creatinine Equation (2020) Laboratory - Chemistry and C hemistry - challengeOrdered By: Edie Crwoder on 05-15-2024 AST [Catalytic activity/Vol] 25 U/L <32 [facility] Serum creatinine measurement (mass/volume)Ordered By: Edie Crowder on 05-15-2024 Creatinine [Mass/Vol] 0.94 mg/dL 0.70-1.20 [facility] Serum globulin measurementOr dered By: Edie Crowder on 05-15-2024 Globulin (S) [Mass/Vol] 3.4 g/dL 2.2-4.2 [facility] Serum glucose measurement (m ass/volume)Ordered By: Edie Crowder on 05-15-2024 Glucose [Mass/Vol] 75 mg/dL 70-99 [facility] Serum or plasma alanine chang otransferase (ALT) measurementOrdered By: Edie Crowder on 05-15-2024 ALT [Catalytic activity/Vol] 15 U/L <35 [facility] Serum or plasma albumin shonna urement (mass/volume)Ordered By: Edie Crowder on 05-15-2024 Albumin [Mass/Vol] 4.4 g/dL 3.4-4.8 [facility] Serum or plasma albumin/glob ulin mass ratioOrdered By: Edie Crowder on 05-15-2024 Albumin/Globulin [Mass ratio] 1.3 {ratio} 0.9-2.4 [facility] Serum or plasma alkaline addie sphatase measurementOrdered By: Edie Crowder on 05-15-2024 ALP [Catalytic activity/Vol] 144 U/L High 35-104 [facility] Serum or plasma anion gap de termination (moles/volume)Ordered By: Edie Crowder on 05-15-2024 Anion gap [Moles/Vol] 12 mmol/L 5-15 [facility] Serum or plasma calcium shonna urement (mass/volume)Ordered By: Edie Crowder on 05-15-2024 Calcium [Mass/Vol] 9.7 mg/dL 7.6-11.0 [facility] Serum or plasma potassium me asurementOrdered By: Edie Crowder on 05-15-2024 Potassium [Moles/Vol] 4.5 mmol/L 3.3-5.1 [facility] Serum or plasma sodium measu rement (moles/volume)Ordered By: Edie Crowder on 05-15-2024 Sodium [Moles/Vol] 121 mmol/L Low 133-145 [facility] Serum or plasma urea nitroge n measurement (mass/volume)Ordered By: Edie Crowder on 05-15-2024 Urea nitrogen [Mass/Vol] 13 mg/dL 4-19 [facility] Total proteinOrdered By: Adolph Crowder on 05-15-2024 Protein [Mass/Vol] 7.8 g/dL 5.9-8.4 [facility] Transferrinon 04-30-2024 Transferrin [Mass/Vol] 314 mg/dL Normal 192-364 [facility] Comment on above: Result Comment: Perf ormed at: - [facility] [address] [id number] Outpatient Facility Physical Therapist: Christiano Rendon PhD, Phone: [phone] Performed By: #### L 3000.0350 #### [facility] [address] [place], [address] CBC W/Diff, Automatedon 04-19 Absolute Lymph 2.28 X10 3/uL Normal 0.83-4.51 [facility] Comment on above: Performed By: #### L 3000.0350 #### [facility] [address] [place], [address] Absolute Neut 7.2 X10 3/uL Normal 2.0-7.7 [facility] Comment on above: Performed By: #### L 3000.0350 #### [facility] [address] [place], [address] IG% 0.600 Normal 0.0-0.9 [facility] Comment on above: Result Comment: IG% - Immature Granulocytes (promyelocytes, myelocytes and metamyelocytes) > 1% indicates that a LEFT SHIFT is Present. Performed By: #### L 3000.0350 #### [facility] [address] [place], [address] Nucleated RBC (Bld) [#/Vol] 0 10*3/uL Normal 0-5 [facility] Comment on above: Performed By: #### L 3000.0350 #### [facility] [address] [place], [address] RDW SD 46.5 fl High 35.1-43.9 [facility] Comment on above: Performed By: #### L 3000.0350 #### [facility] [address] [place], [address] CORTISOL SERUMon 04-29-2024 CORTISOL 11.40 ug/dL Normal 3.44-22.45 [facility] Comment on above: Result Comment: Adul t (AM) 5.27 - 22.45 ug/dL Adult (PM) 3.44 - 16.76 ug/dL Performed By: #### L 3000.0350 #### [facility] [address] [place], [address] Comprehensive Metabolic Prof ilon 04-29-2024 Albumin [Mass/Vol] 3.9 g/dL Normal 3.2-5.0 [facility] Comment on above: Performed By: #### L 3000.0350 #### [facility] [address] [place], [address] Albumin/Globulin [Mass ratio] 0.9 {ratio} Normal 0.9-2.4 [facility] Comment on above: Performed By: #### L 3000.0350 #### [facility] [address] [place], [address] ALK P 131 U/L High 45-117 [facility] Comment on above: Performed By: #### L 3000.0350 #### [facility] [address] [place], [address] ALT [Catalytic activity/Vol] 27 U/L Normal 13-56 [facility] Comment on above: Performed By: #### L 3000.0350 #### [facility] [address] [place], [address] AST [Catalytic activity/Vol] 19 U/L Normal 15-37 [facility] Comment on above: Performed By: #### L 3000.0350 #### [facility] [address] [place], [address] Bilirubin [Mass/Vol] 0.40 mg/dL Normal 0.20-1.00 [facility] Comment on above: Result Comment: For patients on eltrombopag therapy, use of Dimension Bison TBIL is not recommended. Performed By: #### L 3000.0350 #### [facility] [address] [place], [address] BUN/CRE 16.7 RATIO Normal 10-20 [facility] Comment on above: Performed By: #### L 3000.0350 #### [facility] [address] [place], [address] CA,Total 9.7 mg/dL Normal 8.5-10.1 [facility] Comment on above: Performed By: #### L 3000.0350 #### [facility] [address] [place], [address] Chloride [Moles/Vol] 92 mmol/L Low 98-107 [facility] Comment on above: Performed By: #### L 3000.0350 #### [facility] [address] [place], [address] CO2 [Moles/Vol] 24.0 mmol/L Normal 21.0-32.0 [facility] Comment on above: Performed By: #### L 3000.0350 #### [facility] [address] [place], [address] Creatinine [Mass/Vol] 1.02 mg/dL Normal 0.55-1.02 [facility] Comment on above: Result Comment: The validity of the calculated GFR GFRAA in patients over 70 years has not been determined. Clinical correlation is essential. Performed By: #### L 3000.0350 #### [facility] [address] [place], [address] EST GFR - AA 70 mL/min Normal >60 [facility] Comment on above: Result Comment: Afri can Eritrean GFR Calc Performed By: #### L 3000.0350 #### [facility] [address] [place], [address] GAP 9 Normal 5-15 [facility] Comment on above: Performed By: #### L 3000.0350 #### [facility] [address] [place], [address] GFR/1.73 sq M.predicted among non-blacks MDRD (S/P/Bld) [Vol rate/Area] 58 mL/min/{1.73_m2} Low >60 [facility] Comment on above: Result Comment: Non- GFR Calc Performed By: #### L 3000.0350 #### [facility] [address] [place], [address] Globulin (S) [Mass/Vol] 4.4 g/dL High 2.2-4.2 [facility] Comment on above: Performed By: #### L 3000.0350 #### [facility] [address] [place], [address] Glucose [Mass/Vol] 97 mg/dL Normal 74-106 [facility] Comment on above: Performed By: #### L 3000.0350 #### [facility] [address] [place], [address] Potassium [Moles/Vol] 4.3 mmol/L Normal 3.5-5.1 [facility] Comment on above: Performed By: #### L 3000.0350 #### [facility] [address] [place], [address] Sodium [Moles/Vol] 125 mmol/L Low 136-145 [facility] Comment on above: Performed By: #### L 3000.0350 #### [facility] [address] [place], [address] T PROT 8.3 g/dL High 6.4-8.2 [facility] Comment on above: Performed By: #### L 3000.0350 #### [facility] [address] [place], [address] Urea nitrogen [Mass/Vol] 17 mg/dL Normal 7-18 [facility] Comment on above: Performed By: #### L 3000.0350 #### [facility] [address] [place], [address] Iron+Iron Binding Capacityon 04-29-2024 Iron [Mass/Vol] 133 ug/dL Normal 50-170 [facility] Comment on above: Performed By: #### L 3000.0350 #### [facility] [address] [place], [address] IRON SATURATION 33.4 Normal 15.0-55.0 [facility] Comment on above: Performed By: #### L 3000.0350 #### [facility] [address] [place], [address] TIBC 398 ug/dL Normal 250-450 [facility] Comment on above: Performed By: #### L 3000.0350 #### [facility] [address] [place], [address] Lipid Profileon 04-29-2024 Cholesterol [Mass/Vol] 185 mg/dL Normal 200 [facility] Comment on above: Result Comment: <200 mg/dL Desirable 200-240 mg/dL Borderline >240 mg/dL High Risk Performed By: #### L 3000.0350 #### [facility] [address] [place], [address] Cholesterol in HDL [Mass/Vol] 53 mg/dL Normal [facility] Comment on above: Result Comment: The drugs N-Acetylcysteine and Metamizole may falsely depress this assay. Reference Range HDL <40 mg/dL Low HDL Cholesterol HDL >or= 60 mg/dL High HDL Cholesterol Performed By: #### L 3000.0350 #### [facility] [address] [place], [address] Cholesterol in LDL [Mass/Vol] 91 mg/dL Normal 0-130 [facility] Comment on above: Performed By: #### L 3000.0350 #### [facility] [address] [place], [address] Cholesterol in VLDL [Mass/Vol] 41 mg/dL High 5-40 [facility] Comment on above: Performed By: #### L 3000.0350 #### [facility] [address] [place], [address] Triglyceride [Mass/Vol] 207 mg/dL High [facility] Comment on above: Result Comment: The drugs N-Acetylcysteine and Metamizole may falsely depress this assay. Serum Triglycerides Reference Interval Normal <150 mg/dL Borderline high 150 - 199 mg/dL High 200 - 499 mg/dL Very High > or = 500 mg/dL Performed By: #### L 3000.0350 #### [facility] [address] [place], [address] Vitamin B12on 04-29-2024 Cobalamin (Vitamin B12) [Mass/Vol] 710 pg/mL Normal 211-911 [facility] Comment on above: Performed By: #### L 3000.0350 #### [facility] [address] [place], [address] Absolute lymphocyte countOrd ered By: Edie Crowder on 04-28-2024 Lymphocytes Auto (Unsp spec) [#/Vol] 2.28 10*3/uL 0.83-4.51 [facility] Absolute neutrophil countOrd ered By: Edie Crowder on 04-28-2024 Neutrophils (Bld) [#/Vol] 7.2 10*3/uL 2.0-7.7 [facility] Albumin to globulin ratioOrd ered By: Edie Crowder on 04-28-2024 Albumin/Globulin [Mass ratio] 0.9 {ratio} 0.9-2.4 [facility] Automated blood erythrocyte countOrdered By: Edie Crowder on 04-28-2024 RBC (Bld) [#/Vol] 4.86 10*6/uL Normal 4.2-5.4 [facility] Comment on above: Performed By: #### L 3000.0350 #### [facility] [address] [place], [address] Automated blood hematocrit ( percentage)Ordered By: Edie Crowder on 04-28-2024 Hematocrit (Bld) [Volume fraction] 40.1 % Normal 37-47 [facility] Comment on above: Performed By: #### L 3000.0350 #### [facility] [address] [place], [address] Automated lymphocyte count a s percentage of total leukocytesOrdered By: Edie Crowder on 04-28-2024 Lymphocytes/100 WBC (Bld) 21.7 % Normal 19-41 [facility] Comment on above: Performed By: #### L 3000.0350 #### [facility] [address] [place], [address] Lymphocytes/100 WBC Auto (Unsp spec) 21.7 % - [facility] Basophil percentageOrdered B y: Edie Crowder on 04-28-2024 Basophils/100 WBC (Bld) 0.9 % Normal 0-1 [facility] Comment on above: Performed By: #### L 3000.0350 #### [facility] [address] [place], [address] Bilirubin, totalOrdered By: Edie Crowder on 04-28-2024 Bilirubin [Mass/Vol] 0.40 mg/dL 0.20-1.00 [facility] Comment on above: For patients on eltr ombopag therapy, use of Dimension Bison TBIL is not recommended. Blood urea nitrogen (BUN)/cr eatinine ratioOrdered By: Edie Crowder on 04-28-2024 Urea nitrogen/Creatinine [Mass ratio] 16.7 mg/mg 10-20 [facility] Carbon dioxide measurementOr dered By: Edie Crowder on 04-28-2024 CO2 [Moles/Vol] 24.0 mmol/L 21.0-32.0 [facility] Chloride measurementOrdered By: Edie Crowder on 04-28-2024 Chloride [Moles/Vol] 92 mmol/L Low 98-107 [facility] Cortisol [Mass/Vol]Ordered B y: Edie Crowder on 04-28-2024 Cortisol 11.40 ug/dL 3.44-22.45 [facility] Comment on above: Adult (AM) 5.27 - 22 .45 ug/dL Adult (PM) 3.44 - 16.76 ug/dL Eosinophil percentageOrdered By: Edie Crowder on 04-28-2024 Eosinophils/100 WBC (Bld) 3.1 % Normal 0-5 [facility] Comment on above: Performed By: #### L 3000.0350 #### [facility] [address] [place], [place], [address] Erythrocyte distribution wid th ratioOrdered By: Edie Crowder on 04-28-2024 Erythrocyte distribution width (RBC) [Ratio] 15.3 % High 11.6-14.6 [facility] Comment on above: Performed By: #### L 3000.0350 #### [facility] [address] [place], [address] Erythrocyte distribution wid th standard deviationOrdered By: Edie Crowder on 04-28-2024 Erythrocyte distribution width (RBC) [Entitic vol] 46.5 fL High 35.1-43.9 [facility] Erythrocyte distribution width (RBC) [Ratio] 46.5 fl High 35.1-43.9 [facility] Estimated glomerular filtrat ion rate (GFR) AmericanOrdered By: Edie Crowder on 04-28-2024 Estimated GFR (MDRD) Amer 70 mL/min >60 [facility] Comment on above: GFR Calc Glomerular filtration rate ( GFR) estimationOrdered By: Edie Crowder on 04-28-2024 Estimated GFR (MDRD) Non-Af Amer 58 mL/min Low >60 [facility] Comment on above: Non- GFR Calc GFR/1.73 sq M.predicted among non-blacks MDRD (S/P/Bld) [Vol rate/Area] 58 mL/min/{1.73_m2} Low >60 [facility] Comment on above: Non- GFR Calc Glucose measurementOrdered B y: Edie Crowder on 04-28-2024 Glucose [Mass/Vol] 97 mg/dL 74-106 [facility] Hemoglobin measurementOrdere d By: Edie Crowder on 04-28-2024 Hemoglobin (Bld) [Mass/Vol] 13.0 g/dL Normal 12.0-15.0 [facility] Comment on above: Performed By: #### L 3000.0350 #### [facility] [place], [address] High density lipoprotein (HD L) measurementOrdered By: Edie Crowder on 04-28-2024 Cholesterol in HDL [Mass/Vol] 53 mg/dL >40 [facility] Comment on above: The drugs N-Acetylcy steine and Metamizole may falsely depress this assay. Reference Range HDL <40 mg/dL Low HDL Cholesterol HDL >or= 60 mg/dL High HDL Cholesterol Immature granulocytes/100 WB C Auto (Bld)Ordered By: Edie Crowder on 04-28-2024 Immature granulocytes/100 WBC (Bld) 0.600 % 0.0-0.9 [facility] Comment on above: IG% - Immature Granu locytes (promyelocytes, myelocytes and metamyelocytes) > 1% indicates that a LEFT SHIFT is Present. Iron (Unsp spec) [Mass/Mass] Ordered By: Edie Crowder on 04-28-2024 Iron [Mass/Vol] 133 ug/dL 50-170 [facility] Iron measurement (mass/mass) Ordered By: Edie Crowder on 04-28-2024 Iron (Unsp spec) [Mass/Mass] 133 ug/dL 50-170 [facility] Iron saturation [Mass fracti on]Ordered By: Edie Crowder on 04-28-2024 Iron Saturation 33.4 % 15.0-55.0 [facility] - Chemistry and C hemistry - challengeOrdered By: Edie Crowder on 04-28-2024 AST [Catalytic activity/Vol] 19 U/L 15-37 [facility] Low density lipoprotein (LDL ) cholesterol measurementOrdered By: Edie Crowder on 04-28-2024 Cholesterol in LDL [Mass/Vol] 91 mg/dL 0-130 [facility] Lymphocytes Auto (Unsp spec) [#/Vol]Ordered By: Edie Crowder on 04-28-2024 Lymphocytes (Bld) [#/Vol] 2.28 10*3/uL 0.83-4.51 [facility] MCV (mean corpuscular volume ) determinationOrdered By: Edie Crowder on 04-28-2024 MCV (RBC) [Entitic vol] 82.5 fL Normal 81-99 [facility] Comment on above: Performed By: #### L 3000.0350 #### [facility] [address] [facility] [address] Mean corpuscular hemoglobin (MCH) determinationOrdered By: Edie Crowder on 04-28-2024 MCH (RBC) [Entitic mass] 26.7 pg Low 27.0-32.0 [facility] Comment on above: Performed By: #### L 3000.0350 #### [facility] [address] [facility] [address] Mean corpuscular hemoglobin concentration (MCHC) determinationOrdered By: Edie Crowder on 04-28-2024 MCHC (RBC) [Mass/Vol] 32.4 g/dL Normal 32-36 [facility] Comment on above: Performed By: #### L 3000.0350 #### [facility] [address] [facility] [address] Mean platelet volume determi nationOrdered By: Edie Crowder on 04-28-2024 Platelet mean volume (Bld) [Entitic vol] 8.8 fL Normal 6.2-12.0 [facility] Comment on above: Performed By: #### L 3000.0350 #### [facility] [address] [place] [id number] Monocyte percentageOrdered B y: Edie Crowder on 04-28-2024 Monocytes/100 WBC (Bld) 4.8 % Normal 0-10 [facility] Comment on above: Performed By: #### L 3000.0350 #### [facility] [address] [place], [address] Neutrophil percentageOrdered By: Edie Crowder on 04-28-2024 Neutrophils/100 WBC (Bld) 68.9 % Normal 47-70 [facility] Comment on above: Performed By: #### L 3000.0350 #### [facility] [address] [place], [address] Nucleated red blood cell per centageOrdered By: Edie Crowder on 04-28-2024 Nucleated RBC/100 WBC (Bld) [Ratio] 0 % 0-5 [facility] Platelet countOrdered By: Do ra Crowder on 04-28-2024 Platelets (Bld) [#/Vol] 603 10*3/uL High 150-450 [facility] Comment on above: Performed By: #### L 3000.0350 #### [facility] [address], [address] Potassium measurementOrdered By: Edie Crowder on 04-28-2024 Potassium [Moles/Vol] 4.3 mmol/L 3.5-5.1 [facility] Serum anion gap measurementO rdered By: Edie Crowder on 04-28-2024 Anion gap [Moles/Vol] 9 mmol/L 5-15 [facility] Serum globulin measurementOr dered By: Edie Crowder on 04-28-2024 Globulin (S) [Mass/Vol] 4.4 g/dL High 2.2-4.2 [facility] Serum or plasma alanine chang otransferase (ALT) measurementOrdered By: Edie Crowder on 04-28-2024 ALT [Catalytic activity/Vol] 27 U/L 13-56 [facility] Serum or plasma albumin shonna urement (mass/volume)Ordered By: Edie Crowder on 04-28-2024 Albumin [Mass/Vol] 3.9 g/dL 3.2-5.0 [facility] Serum or plasma alkaline addie sphatase measurementOrdered By: Edie Crowder on 04-28-2024 ALP [Catalytic activity/Vol] 131 U/L High 45-117 [facility] Serum or plasma calcium shonna urement (mass/volume)Ordered By: Edie Crowder on 04-28-2024 Calcium [Mass/Vol] 9.7 mg/dL 8.5-10.1 [facility] Serum or plasma cholesterol measurement (mass/volume)Ordered By: Edie Crowder on 04-28-2024 Cholesterol [Mass/Vol] 185 mg/dL <200 [facility] Comment on above: <200 mg/dL Desirable 200-240 mg/dL Borderline >240 mg/dL High Risk Serum or plasma cortisol víctor surement (mass/volume)Ordered By: Edie Crowder on 04-28-2024 Cortisol [Mass/Vol] 11.40 ug/dL 3.44-22.45 [facility] Comment on above: Adult (AM) 5.27 - 22 .45 ug/dL Adult (PM) 3.44 - 16.76 ug/dL Serum or plasma creatinine m easurement (mass/volume)Ordered By: Edie Crowder on 04-28-2024 Creatinine [Mass/Vol] 1.02 mg/dL 0.55-1.02 [facility] Comment on above: The validity of the calculated GFR & GFRAA in patients over 70 years has not been determined. Clinical correlation is essential. Serum or plasma iron saturat ion measurement (mass fraction)Ordered By: Edie Crowder on 04-28-2024 Iron saturation [Mass fraction] 33.4 % 15.0-55.0 [facility] Serum or plasma urea nitroge n measurement (mass/volume)Ordered By: Edie Crowder on 04-28-2024 Urea nitrogen [Mass/Vol] 17 mg/dL 7-18 [facility] Sodium levelOrdered By: Edie Crowder on 04-28-2024 Sodium [Moles/Vol] 125 mmol/L Low 136-145 [facility] TIBCOrdered By: Edie yancey on 04-28-2024 Total Iron Binding Capacity 398 ug/dL 250-450 [facility] Total proteinOrdered By: Adolph Crowder on 04-28-2024 Protein [Mass/Vol] 8.3 g/dL High 6.4-8.2 [facility] TransferrinOrdered By: Edie Crowder on 04-28-2024 Transferrin [Mass/Vol] 314 mg/dL 192-364 [facility] Comment on above: Performed at: [address] [id number] Director: Christiano Rendon PhD, Phone: [phone] Triglycerides measurementOrd ered By: Edie Crowder on 04-28-2024 Triglyceride [Mass/Vol] 207 mg/dL High <199 [facility] Comment on above: The drugs N-Acetylcy steine and Metamizole may falsely depress this assay.Serum Triglycerides Reference Interval Normal <150 mg/dL Borderline high 150 - 199 mg/dL High 200 - 499 mg/dL Very High > or = 500 mg/dL Very low density lipoprotein (VLDL) cholesterol measurementOrdered By: Edie Crowder on 04-28-2024 Very low density lipoprotein (VLDL) cholesterol measurement 41 mg/dL High 5-40 [facility] VLDL Cholesterol 41 mg/dL High 5-40 [facility] Vitamin B12 measurementOrder ed By: Edie Crowder on 04-28-2024 Cobalamin (Vitamin B12) [Mass/Vol] 710 pg/mL 211-911 [facility] White blood cell (WBC) count Ordered By: Edie Crowder on 04-28-2024 WBC (Bld) [#/Vol] 10.5 10*3/uL Normal 4.4-11.0 [facility] Comment on above: Performed By: #### L 3000.0350 #### [facility] [address] [place], [place], [id number] Urine Cultureon 02-01-2024 [facility] Mixed Gram Positive Organisms [place] Count 11,000-25,000 [facility] Mixed contaminants. Submit a new specimen if indicated. Normal [facility] Comment on above: Performed By: #### M 100.2200 #### [facility] [address] [place], [address] Absolute neutrophil countOrd ered By: Edie Crowder on 01-29-2024 Neutrophils (Bld) [#/Vol] 6.3 10*3/uL 2.0-7.7 [facility] Albumin to globulin ratioOrd ered By: Edie Crowder on 01-29-2024 Albumin/Globulin [Mass ratio] 0.9 {ratio} 0.9-2.4 [facility] Basophil percentageOrdered B y: Edie Crowder on 01-29-2024 Basophils/100 WBC (Bld) 0.9 % 0-1 [facility] Bilirubin, totalOrdered By: Edie Crowder on 01-29-2024 Bilirubin [Mass/Vol] 0.30 mg/dL 0.20-1.00 [facility] Comment on above: For patients on eltr ombopag therapy, use of Dimension Bison TBIL is not recommended. Blood urea nitrogen (BUN)/cr eatinine ratioOrdered By: Edie Crowder on 01-29-2024 Urea nitrogen/Creatinine [Mass ratio] 14.0 mg/mg 10-20 [facility] CBC W/Diff, Automatedon 01-17 Absolute Lymph 2.64 X10 3/uL Normal 0.83-4.51 [facility] Comment on above: Performed By: #### L 100.0100, L501.9520, L500.4100, L500.4050 #### [facility] [address] [place], [address] Absolute Neut 6.3 X10 3/uL Normal 2.0-7.7 [facility] Comment on above: Performed By: #### L 100.0100, L501.9520, L500.4100, L500.4050 #### [facility] [address] [place], [address] Basophils/100 WBC (Bld) 0.9 % Normal 0-1 [facility] Comment on above: Performed By: #### L 100.0100, L501.9520, L500.4100, L500.4050 #### [facility] [address] [place], [address] Eosinophils/100 WBC (Bld) 2.6 % Normal 0-5 [facility] Comment on above: Performed By: #### L 100.0100, L501.9520, L500.4100, L500.4050 #### [facility] [address] [place], [address] Erythrocyte distribution width (RBC) [Ratio] 14.2 % Normal 11.6-14.6 [facility] Comment on above: Performed By: #### L 100.0100, L501.9520, L500.4100, L500.4050 #### [facility] [address] [place], [address] Hematocrit (Bld) [Volume fraction] 36.0 % Low 37-47 [facility] Comment on above: Performed By: #### L 100.0100, L501.9520, L500.4100, L500.4050 #### [facility] [address] [place], [address] Hemoglobin (Bld) [Mass/Vol] 11.7 g/dL Low 12.0-15.0 [facility] Comment on above: Performed By: #### L 100.0100, L501.9520, L500.4100, L500.4050 #### [facility] [address] [place], [address] IG% 0.400 Normal 0.0-0.9 [facility] Comment on above: Result Comment: IG% - Immature Granulocytes (promyelocytes, myelocytes and metamyelocytes) > 1% indicates that a LEFT SHIFT is Present. Performed By: #### L 100.0100, L501.9520, L500.4100, L500.4050 #### [facility] [address] [place], [address] Lymphocytes/100 WBC (Bld) 26.8 % Normal 19-41 [facility] Comment on above: Performed By: #### L 100.0100, L501.9520, L500.4100, L500.4050 #### [facility] [address] [place], [address] MCH (RBC) [Entitic mass] 25.6 pg Low 27.0-32.0 [facility] Comment on above: Performed By: #### L 100.0100, L501.9520, L500.4100, L500.4050 #### [facility] [address] [place], [address] MCHC (RBC) [Mass/Vol] 32.5 g/dL Normal 32-36 [facility] Comment on above: Performed By: #### L 100.0100, L501.9520, L500.4100, L500.4050 #### [facility] [address] [place], [address] MCV (RBC) [Entitic vol] 78.8 fL Low 81-99 [facility] Comment on above: Performed By: #### L 100.0100, L501.9520, L500.4100, L500.4050 #### [facility] [address] [place], [address] Monocytes/100 WBC (Bld) 5.8 % Normal 0-10 [facility] Comment on above: Performed By: #### L 100.0100, L501.9520, L500.4100, L500.4050 #### [facility] [address] [place], [address] Neutrophils/100 WBC (Bld) 63.5 % Normal 47-70 [facility] Comment on above: Performed By: #### L 100.0100, L501.9520, L500.4100, L500.4050 #### [facility] [address] [place], [address] Nucleated RBC (Bld) [#/Vol] 0 10*3/uL Normal 0-5 [facility] Comment on above: Performed By: #### L 100.0100, L501.9520, L500.4100, L500.4050 #### [facility] [address] [place], [address] Platelet mean volume (Bld) [Entitic vol] 9.4 fL Normal 6.2-12.0 [facility] Comment on above: Performed By: #### L 100.0100, L501.9520, L500.4100, L500.4050 #### [facility] [address] [place], [address] Platelets (Bld) [#/Vol] 598 10*3/uL High 150-450 [facility] Comment on above: Performed By: #### L 100.0100, L501.9520, L500.4100, L500.4050 #### [facility] [address] [place], [address] RBC (Bld) [#/Vol] 4.57 10*6/uL Normal 4.2-5.4 [facility] Comment on above: Performed By: #### L 100.0100, L501.9520, L500.4100, L500.4050 #### [facility] [address] [place], [address] RDW SD 40.3 fl Normal 35.1-43.9 [facility] Comment on above: Performed By: #### L 100.0100, L501.9520, L500.4100, L500.4050 #### [facility] [address] [place], [address] WBC (Bld) [#/Vol] 9.9 10*3/uL Normal 4.4-11.0 [facility] Comment on above: Performed By: #### L 100.0100, L501.9520, L500.4100, L500.4050 #### [facility] [address] [place], [address] Carbon dioxide measurementOr dered By: Edie Crowder on 01-29-2024 CO2 [Moles/Vol] 23.0 mmol/L 21.0-32.0 [facility] Chloride measurementOrdered By: Edie Crowder on 01-29-2024 Chloride [Moles/Vol] 92 mmol/L Low 98-107 [facility] Comprehensive Metabolic Prof ilon 01-29-2024 Albumin [Mass/Vol] 3.9 g/dL Normal 3.2-5.0 [facility] Comment on above: Performed By: #### L 100.0100, L501.9520, L500.4100, L500.4050 #### [facility] [address] [place], [address] Albumin/Globulin [Mass ratio] 0.9 {ratio} Normal 0.9-2.4 [facility] Comment on above: Performed By: #### L 100.0100, L501.9520, L500.4100, L500.4050 #### [facility] [address] [place], [address] ALK P 142 U/L High 45-117 [facility] Comment on above: Performed By: #### L 100.0100, L501.9520, L500.4100, L500.4050 #### [facility] [address] [place], [address] ALT [Catalytic activity/Vol] 21 U/L Normal 13-56 [facility] Comment on above: Performed By: #### L 100.0100, L501.9520, L500.4100, L500.4050 #### [facility] [address] [place], [address] AST [Catalytic activity/Vol] 17 U/L Normal 15-37 [facility] Comment on above: Performed By: #### L 100.0100, L501.9520, L500.4100, L500.4050 #### [facility] [address] [place], [address] Bilirubin [Mass/Vol] 0.30 mg/dL Normal 0.20-1.00 [facility] Comment on above: Result Comment: For patients on eltrombopag therapy, use of Dimension Bison TBIL is not recommended. Performed By: #### L 100.0100, L501.9520, L500.4100, L500.4050 #### [facility] [address] [place], [address] BUN/CRE 14.0 RATIO Normal 10-20 [facility] Comment on above: Performed By: #### L 100.0100, L501.9520, L500.4100, L500.4050 #### [facility] [address] [place], [address] CA,Total 9.0 mg/dL Normal 8.5-10.1 [facility] Comment on above: Performed By: #### L 100.0100, L501.9520, L500.4100, L500.4050 #### [facility] [address] [place], [address] Chloride [Moles/Vol] 92 mmol/L Low 98-107 [facility] Comment on above: Performed By: #### L 100.0100, L501.9520, L500.4100, L500.4050 #### [facility] [address] [place], [address] CO2 [Moles/Vol] 23.0 mmol/L Normal 21.0-32.0 [facility] Comment on above: Performed By: #### L 100.0100, L501.9520, L500.4100, L500.4050 #### [facility] [address] [place], [address] Creatinine [Mass/Vol] 0.93 mg/dL Normal 0.55-1.02 [facility] Comment on above: Result Comment: The validity of the calculated GFR GFRAA in patients over 70 years has not been determined. Clinical correlation is essential. Performed By: #### L 100.0100, L501.9520, L500.4100, L500.4050 #### [facility] [address] [place], [address] EST GFR - AA 78 mL/min Normal >60 [facility] Comment on above: Result Comment: Afri can Eritrean GFR Calc Performed By: #### L 100.0100, L501.9520, L500.4100, L500.4050 #### [facility] [address] [place], [address] GAP 11 Normal 5-15 [facility] Comment on above: Performed By: #### L 100.0100, L501.9520, L500.4100, L500.4050 #### [facility] [address] [place], [address] GFR/1.73 sq M.predicted among non-blacks MDRD (S/P/Bld) [Vol rate/Area] 64 mL/min/{1.73_m2} Normal >60 [facility] Comment on above: Result Comment: Non- GFR Calc Performed By: #### L 100.0100, L501.9520, L500.4100, L500.4050 #### [facility] [address] [place], [address] Globulin (S) [Mass/Vol] 4.4 g/dL High 2.2-4.2 [facility] Comment on above: Performed By: #### L 100.0100, L501.9520, L500.4100, L500.4050 #### [facility] [address] [place], [address] Glucose [Mass/Vol] 96 mg/dL Normal 74-106 [facility] Comment on above: Performed By: #### L 100.0100, L501.9520, L500.4100, L500.4050 #### [facility] [address] [place], [address] Potassium [Moles/Vol] 3.6 mmol/L Normal 3.5-5.1 [facility] Comment on above: Performed By: #### L 100.0100, L501.9520, L500.4100, L500.4050 #### [facility] [address] [place], [address] Sodium [Moles/Vol] 126 mmol/L Low 136-145 [facility] Comment on above: Performed By: #### L 100.0100, L501.9520, L500.4100, L500.4050 #### [facility] [address] [place], [address] T PROT 8.3 g/dL High 6.4-8.2 [facility] Comment on above: Performed By: #### L 100.0100, L501.9520, L500.4100, L500.4050 #### [facility] [address] [place], [address] Urea nitrogen [Mass/Vol] 13 mg/dL Normal 7-18 [facility] Comment on above: Performed By: #### L 100.0100, L501.9520, L500.4100, L500.4050 #### [facility] [address] [place], [address] Eosinophil percentageOrdered By: Edie Crowder on 01-29-2024 Eosinophils/100 WBC (Bld) 2.6 % 0-5 [facility] Erythrocyte distribution wid th ratioOrdered By: Edie Crowder on 01-29-2024 Erythrocyte distribution width (RBC) [Ratio] 14.2 % 11.6-14.6 [facility] Erythrocyte distribution wid th standard deviationOrdered By: Edie Crowder on 01-29-2024 Erythrocyte distribution width (RBC) [Entitic vol] 40.3 fL 35.1-43.9 [facility] Estimated glomerular filtrat ion rate (GFR) AmericanOrdered By: Edie Crowder on 01-29-2024 Estimated GFR (MDRD) Amer 78 mL/min >60 [facility] Comment on above: GFR Calc Glomerular filtration rate ( GFR) estimationOrdered By: Edie Crowder on 01-29-2024 Estimated GFR (MDRD) Non-Af Amer 64 mL/min >60 [facility] Comment on above: Non- GFR Calc Glucose measurementOrdered B y: Edie Crowder on 01-29-2024 Glucose [Mass/Vol] 96 mg/dL 74-106 [facility] Hematocrit Auto (Bld) [Volum e fraction]Ordered By: Edie Crowder on 01-29-2024 Hematocrit (Bld) [Volume fraction] 36.0 % Low 37-47 [facility] Hemoglobin measurementOrdere d By: Edie Crowder on 01-29-2024 Hemoglobin (Bld) [Mass/Vol] 11.7 g/dL Low 12.0-15.0 [facility] High density lipoprotein (HD L) measurementOrdered By: Edie Crowder on 01-29-2024 Cholesterol in HDL [Mass/Vol] 54 mg/dL >40 [facility] Comment on above: The drugs N-Acetylcy steine and Metamizole may falsely depress this assay. Reference Range HDL <40 mg/dL Low HDL Cholesterol HDL >or= 60 mg/dL High HDL Cholesterol Immature granulocytes/100 WB C Auto (Bld)Ordered By: Edie Crowder on 01-29-2024 Immature granulocytes/100 WBC (Bld) 0.400 % 0.0-0.9 [facility] Comment on above: IG% - Immature Granu locytes (promyelocytes, myelocytes and metamyelocytes) > 1% indicates that a LEFT SHIFT is Present. Laboratory - Chemistry and C hemistry - challengeOrdered By: Edie Crowder on 01-29-2024 AST [Catalytic activity/Vol] 17 U/L 15-37 [facility] - Chemistry and C hemistry - challengeon 01-29-2024 Bilirubin Ql (U) Negative [facility] Glucose Ql (U) Negative [facility] Ketones Ql (U) Negative [facility] pH (U) 6.5 [pH] [facility] Specific gravity (U) [Rel density] 1.015 [facility] Urobilinogen (U) [Mass/Vol] 0.7562334 mg/dL [facility] Laboratory - Hematology and Cell countson 01-29-2024 Hemoglobin Ql (U) Trace [facility] - Specimen inform ationon 01-29-2024 Clarity (U) Clear [facility] Color (U) YELLOW [facility] Laboratory - Urinalysison Nitrite Ql (U) Negative [facility] Protein Ql (U) Negative [facility] Lipid Profileon 01-29-2024 Cholesterol [Mass/Vol] 241 mg/dL High 200 [facility] Comment on above: Result Comment: <200 mg/dL Desirable 200-240 mg/dL Borderline >240 mg/dL High Risk Performed By: #### L 100.0100, L501.9520, L500.4100, L500.4050 #### [facility] [address] [place], [address] Cholesterol in HDL [Mass/Vol] 54 mg/dL Normal [facility] Comment on above: Result Comment: The drugs N-Acetylcysteine and Metamizole may falsely depress this assay. Reference Range HDL <40 mg/dL Low HDL Cholesterol HDL >or= 60 mg/dL High HDL Cholesterol Performed By: #### L 100.0100, L501.9520, L500.4100, L500.4050 #### [facility] [address] [place], [address] Cholesterol in LDL [Mass/Vol] 133 mg/dL High 0-130 [facility] Comment on above: Performed By: #### L 100.0100, L501.9520, L500.4100, L500.4050 #### [facility] [address] [place], [address] Cholesterol in VLDL [Mass/Vol] 54 mg/dL High 5-40 [facility] Comment on above: Performed By: #### L 100.0100, L501.9520, L500.4100, L500.4050 #### [facility] [address] [place], [address] Triglyceride [Mass/Vol] 271 mg/dL High [facility] Comment on above: Result Comment: The drugs N-Acetylcysteine and Metamizole may falsely depress this assay. Serum Triglycerides Reference Interval Normal <150 mg/dL Borderline high 150 - 199 mg/dL High 200 - 499 mg/dL Very High > or = 500 mg/dL Performed By: #### L 100.0100, L501.9520, L500.4100, L500.4050 #### [facility] [address] [place], [address] Low density lipoprotein (LDL ) cholesterol measurementOrdered By: Edie Crowder on 01-29-2024 Cholesterol in LDL [Mass/Vol] 133 mg/dL High 0-130 [facility] Lymphocytes Auto (Unsp spec) [#/Vol]Ordered By: Edie Crowder on 01-29-2024 Lymphocytes (Bld) [#/Vol] 2.64 10*3/uL 0.83-4.51 [facility] Lymphocytes/100 WBC Auto (Un sp spec)Ordered By: Edie Crowder on 01-29-2024 Lymphocytes/100 WBC (Bld) 26.8 % 19-41 [facility] MCV (mean corpuscular volume ) determinationOrdered By: Edie Crowder on 01-29-2024 MCV (RBC) [Entitic vol] 78.8 fL Low 81-99 [facility] Mean corpuscular hemoglobin (MCH) determinationOrdered By: Edie Crowder on 01-29-2024 MCH (RBC) [Entitic mass] 25.6 pg Low 27.0-32.0 [facility] Mean corpuscular hemoglobin concentration (MCHC) determinationOrdered By: Edie Crowder on 01-29-2024 MCHC (RBC) [Mass/Vol] 32.5 g/dL 32-36 [facility] Mean platelet volume determi nationOrdered By: Edie Crowder on 01-29-2024 Platelet mean volume (Bld) [Entitic vol] 9.4 fL 6.2-12.0 [facility] Monocyte percentageOrdered B y: Edie Crowder on 01-29-2024 Monocytes/100 WBC (Bld) 5.8 % 0-10 [facility] Neutrophil percentageOrdered By: Edie Crowder on 01-29-2024 Neutrophils/100 WBC (Bld) 63.5 % 47-70 [facility] No Panel Informationon 01-28 Urine Non-Hemolyzed Blood [facility] Nucleated red blood cell per centageOrdered By: Edie Crowder on 01-29-2024 Nucleated RBC/100 WBC (Bld) [Ratio] 0 % 0-5 [facility] Platelet countOrdered By: Do ra Crowder on 01-29-2024 Platelets (Bld) [#/Vol] 598 10*3/uL High 150-450 [facility] Potassium measurementOrdered By: Edie Crowder on 01-29-2024 Potassium [Moles/Vol] 3.6 mmol/L 3.5-5.1 [facility] RBC Auto (Bld) [#/Vol]Ordere d By: Edie Crowder on 01-29-2024 RBC (Bld) [#/Vol] 4.57 10*6/uL 4.2-5.4 [facility] Serum anion gap measurementO rdered By: Edie Crowder on 01-29-2024 Anion gap [Moles/Vol] 11 mmol/L 5-15 [facility] Serum globulin measurementOr dered By: Edie Crowder on 01-29-2024 Globulin (S) [Mass/Vol] 4.4 g/dL High 2.2-4.2 [facility] Serum or plasma alanine chang otransferase (ALT) measurementOrdered By: Edie Crowder on 01-29-2024 ALT [Catalytic activity/Vol] 21 U/L 13-56 [facility] Serum or plasma albumin shonna urement (mass/volume)Ordered By: Edie Crowder on 01-29-2024 Albumin [Mass/Vol] 3.9 g/dL 3.2-5.0 [facility] Serum or plasma alkaline addie sphatase measurementOrdered By: Edie Crowder on 01-29-2024 ALP [Catalytic activity/Vol] 142 U/L High 45-117 [facility] Serum or plasma calcium shonna urement (mass/volume)Ordered By: Edie Crowder on 01-29-2024 Calcium [Mass/Vol] 9.0 mg/dL 8.5-10.1 [facility] Serum or plasma cholesterol measurement (mass/volume)Ordered By: Edie Crowder on 01-29-2024 Cholesterol [Mass/Vol] 241 mg/dL High <200 [facility] Comment on above: <200 mg/dL Desirable 200-240 mg/dL Borderline >240 mg/dL High Risk Serum or plasma creatinine m easurement (mass/volume)Ordered By: Edie Crowder on 01-29-2024 Creatinine [Mass/Vol] 0.93 mg/dL 0.55-1.02 [facility] Comment on above: The validity of the calculated GFR & GFRAA in patients over 70 years has not been determined. Clinical correlation is essential. Serum or plasma urea nitroge n measurement (mass/volume)Ordered By: Edie Crowder on 01-29-2024 Urea nitrogen [Mass/Vol] 13 mg/dL 7-18 [facility] Sodium levelOrdered By: Edie Crowder on 01-29-2024 Sodium [Moles/Vol] 126 mmol/L Low 136-145 [facility] TSH QnOrdered By: Edie duffy on 01-29-2024 Thyroid Stimulating Hormone (TSH) 2.170 uIU/mL 0.358-3.740 [facility] Thyroid Stim Hormone (TSH)on 01-29-2024 TSH 2.170 uIU/mL Normal 0.358-3.740 [facility] Comment on above: Performed By: #### L 100.0100, L501.9520, L500.4100, L500.4050 #### [facility] [place], [address] Total proteinOrdered By: Adolph Crowder on 01-29-2024 Protein [Mass/Vol] 8.3 g/dL High 6.4-8.2 [facility] Triglycerides measurementOrd ered By: Edie Crowder on 01-29-2024 Triglyceride [Mass/Vol] 271 mg/dL High <199 [facility] Comment on above: The drugs N-Acetylcy steine and Metamizole may falsely depress this assay.Serum Triglycerides Reference Interval Normal <150 mg/dL Borderline high 150 - 199 mg/dL High 200 - 499 mg/dL Very High > or = 500 mg/dL Urine cultureOrdered By: Adolph Crowder on 01-29-2024 Bacteria identified Cx Nom (U) Positive Abnormal [facility] Very low density lipoprotein (VLDL) cholesterol measurementOrdered By: Edie Crowder on 01-29-2024 VLDL Cholesterol 54 mg/dL High 5-40 [facility] White blood cell (WBC) count Ordered By: Edie Crowder on 01-29-2024 WBC (Bld) [#/Vol] 9.9 10*3/uL 4.4-11.0 [facility] No Panel InformationOrdered By: Edie Crowder on 03-27-2023 Thyroid Stimulating Hormone (TSH) 1.58 uIU/mL 0.358-3.74 [facility] Absolute lymphocyte countOrd ered By: Edie Crowder on 02-01-2023 Lymphocytes Auto (Unsp spec) [#/Vol] 2.79 10*3/uL 0.83-4.51 [facility] Basophil percentageOrdered B y: Edie Crowder on 02-01-2023 Basophils/100 WBC (Bld) 0.8 % 0-1 [facility] Bilirubin [Mass/Vol] 0.50 mg/dL 0.20-1.00 [facility] Comment on above: For patients on eltr ombopag therapy, use of Dimension Bison TBIL is not recommended. Chloride [Moles/Vol] 92 mmol/L 98-107 [facility] Cholesterol [Mass/Vol] 177 mg/dL <200 [facility] Comment on above: <200 mg/dL Desirable 200-240 mg/dL Borderline >240 mg/dL High Risk Eosinophils/100 WBC (Bld) 3.2 % 0-5 [facility] Glucose [Mass/Vol] 103 mg/dL 74-106 [facility] Comment on above: Fasting Glucose resu lt from 100 to 125 mg/dL suggests IMPAIRED HOMEOSTASIS per A.D.A. criteria. Neutrophils (Bld) [#/Vol] 6.4 10*3/uL 2.0-7.7 [facility] Neutrophils/100 WBC (Bld) 61.4 % 47-70 [facility] Potassium [Moles/Vol] 3.5 mmol/L 3.5-5.1 [facility] Protein [Mass/Vol] 8.5 g/dL 6.4-8.2 [facility] Sodium [Moles/Vol] 127 mmol/L 136-145 [facility] Triglyceride [Mass/Vol] 209 mg/dL <199 [facility] Comment on above: The drugs N-Acetylcy steine and Metamizole may falsely depress this assay.Serum Triglycerides Reference Interval Normal <150 mg/dL Borderline high 150 - 199 mg/dL High 200 - 499 mg/dL Very High > or = 500 mg/dL WBC (Bld) [#/Vol] 10.4 10*3/uL 4.4-11.0 [facility] Blood erythrocytes count (nu mber/volume)Ordered By: Edie Crowder on 02-01-2023 RBC (Bld) [#/Vol] 4.52 10*6/uL 4.2-5.4 [facility] Blood hemoglobin measurement (mass/volume)Ordered By: Edie Crowder on 02-01-2023 Hemoglobin (Bld) [Mass/Vol] 12.3 g/dL 12.0-15.0 [facility] Blood lymphocytes/100 leukoc ytesOrdered By: Edie Crowder on 02-01-2023 Lymphocytes/100 WBC (Bld) 26.9 % 19-41 [facility] Blood monocytes/100 leukocyt esOrdered By: Edie Crowder on 02-01-2023 Monocytes/100 WBC (Bld) 7.2 % 0-10 [facility] Blood platelet mean volumeOr dered By: Edie Crowder on 02-01-2023 Platelet mean volume (Bld) [Entitic vol] 9.5 fL 6.2-12.0 [facility] Determination of erythrocyte mean corpuscular volume (MCV)Ordered By: Edie Crowder on 02-01-2023 MCV (RBC) [Entitic vol] 85.0 fL 81-99 [facility] Hematocrit Auto (Bld) [Volum e fraction]Ordered By: Edie Crowder on 02-01-2023 Hematocrit (Bld) [Volume fraction] 38.4 % 37-47 [facility] - Chemistry and C hemistry - challengeOrdered By: Edie Crowder on 02-01-2023 ALP [Catalytic activity/Vol] 137 U/L 45-117 [facility] ALT [Catalytic activity/Vol] 25 U/L 13-56 [facility] CO2 [Moles/Vol] 24.0 mmol/L 21.0-32.0 [facility] Globulin (S) [Mass/Vol] 4.5 g/dL 2.2-4.2 [facility] Urea nitrogen/Creatinine [Mass ratio] 14.4 mg/mg 10-20 [facility] - Hematology and Cell countsOrdered By: Edie Crowder on 02-01-2023 Erythrocyte distribution width (RBC) [Entitic vol] 40.2 fL 35.1-43.9 [facility] Erythrocyte distribution width (RBC) [Ratio] 13.1 % 11.6-14.6 [facility] Immature granulocytes/100 WBC (Bld) 0.500 % 0.0-0.9 [facility] Comment on above: IG% - Immature Granu locytes (promyelocytes, myelocytes and metamyelocytes) > 1% indicates that a LEFT SHIFT is Present. MCH (RBC) [Entitic mass] 27.2 pg 27.0-32.0 [facility] Nucleated RBC/100 WBC (Bld) [Ratio] 0 % 0-5 [facility] MCHC Auto (RBC) [Mass/Vol]Or dered By: Edie Crowder on 02-01-2023 MCHC (RBC) [Mass/Vol] 32.0 g/dL 32-36 [facility] No Panel InformationOrdered By: Edie Crowder on 02-01-2023 Estimated GFR (MDRD) Amer 64 mL/min >60 [facility] Comment on above: GFR Calc Estimated GFR (MDRD) Non-Af Amer 53 mL/min >60 [facility] Comment on above: Non- GFR Calc Thyroid Stimulating Hormone (TSH) 4.81 uIU/mL 0.358-3.74 [facility] Platelets bldOrdered By: Adolph Crowder on 02-01-2023 Platelets (Bld) [#/Vol] 600 10*3/uL 150-450 [facility] Serum or plasma albumin shonna urement (mass/volume)Ordered By: Edie Crowder on 02-01-2023 Albumin [Mass/Vol] 4.0 g/dL 3.2-5.0 [facility] Serum or plasma albumin/glob ulin mass ratioOrdered By: Edie Crowder on 02-01-2023 Albumin/Globulin [Mass ratio] 0.9 {ratio} 0.9-2.4 [facility] Serum or plasma calcium shonna urement (mass/volume)Ordered By: Edie Crowder on 02-01-2023 Calcium [Mass/Vol] 9.1 mg/dL 8.5-10.1 [facility] Serum or plasma cholesterol in HDL measurement (mass/volume)Ordered By: Edie Crowder on 02-01-2023 Cholesterol in HDL [Mass/Vol] 55 mg/dL >40 [facility] Comment on above: The drugs N-Acetylcy steine and Metamizole may falsely depress this assay. Reference Range HDL <40 mg/dL Low HDL Cholesterol HDL >or= 60 mg/dL High HDL Cholesterol Serum or plasma cholesterol in VLDL measurement (mass/volume)Ordered By: Edie Crowder on 02-01-2023 Cholesterol in VLDL [Mass/Vol] 42 mg/dL 5-40 [facility] Serum or plasma creatinine m easurement (mass/volume)Ordered By: Edie Crowder on 02-01-2023 Creatinine [Mass/Vol] 1.11 mg/dL 0.55-1.02 [facility] Comment on above: The validity of the calculated GFR & GFRAA in patients over 70 years has not been determined. Clinical correlation is essential. Serum or plasma low density lipoprotein (LDL) cholesterol measurement (mass/volume)Ordered By: Edie Crowder on 02-01-2023 Cholesterol in LDL [Mass/Vol] 80 mg/dL 0-130 [facility] Serum or plasma urea nitroge n measurement (mass/volume)Ordered By: Edie Crowder on 02-01-2023 Urea nitrogen [Mass/Vol] 16 mg/dL 7-18 [facility] Thin prep Papanicolaou smear with manual screeningOrdered By: Edie Crowder on 02-01-2023 Thin prep Papanicolaou smear with manual screening 22 U/L 15-37 [facility] Thin prep Papanicolaou smear with manual screening 11 5-15 [facility] Progress Noteson 04-04-2022 [employer] Authentication Interface Message Text Specialty Pharmacy Program Wrap Up/Discharge Note: Type of discharge: Discharge from all Specialty Pharmacy services. Reason for discharge from specialty pharmacy management: No recent fill record for Ajovy and Nurtec. No recent follow up visit with neurology. Services can be resumed upon request from the patient or provider at any time. Thank you, Nimo Alberts, PharmD [facility] [phone] option 3 Normal [facility] Absolute lymphocyte counton 01-10-2022 Lymphocytes Auto (Unsp spec) [#/Vol] 2.84 10*3/uL 0.83-4.51 [facility] Work Phone: Basophil percentageon 2021 Basophils/100 WBC (Bld) 1.0 % 0-1 [facility] Work Phone: Bilirubin [Mass/Vol] 0.50 mg/dL 0.20-1.00 [facility] Work Phone: Comment on above: For patients on eltr ombopag therapy, use of Dimension Bison TBIL is not recommended. Chloride [Moles/Vol] 99 mmol/L 98-107 [facility] Work Phone: Cholesterol [Mass/Vol] 175 mg/dL <200 [facility] Work Phone: Comment on above: <200 mg/dL Desirable 200-240 mg/dL Borderline >240 mg/dL High Risk Eosinophils/100 WBC (Bld) 1.8 % 0-5 [facility] Work Phone: Glucose [Mass/Vol] 87 mg/dL 74-106 [facility] Work Phone: Neutrophils (Bld) [#/Vol] 7.5 10*3/uL 2.0-7.7 [facility] Work Phone: Neutrophils/100 WBC (Bld) 66.0 % 47-70 [facility] Work Phone: Potassium [Moles/Vol] 4.0 mmol/L 3.5-5.1 [facility] Work Phone: Protein [Mass/Vol] 8.3 g/dL 6.4-8.2 [facility] Work Phone: Sodium [Moles/Vol] 131 mmol/L 136-145 [facility] Work Phone: Triglyceride [Mass/Vol] 205 mg/dL <199 [facility] Work Phone: Comment on above: The drugs N-Acetylcy steine and Metamizole may falsely depress this assay.Serum Triglycerides Reference Interval Normal <150 mg/dL Borderline high 150 - 199 mg/dL High 200 - 499 mg/dL Very High > or = 500 mg/dL WBC (Bld) [#/Vol] 11.4 10*3/uL 4.4-11.0 [facility] Work Phone: Blood erythrocytes count (nu mber/volume)on 01-10-2022 RBC (Bld) [#/Vol] 4.74 10*6/uL 4.2-5.4 [facility] Work Phone: Blood hemoglobin measurement (mass/volume)on 01-10-2022 Hemoglobin (Bld) [Mass/Vol] 13.0 g/dL 12.0-15.0 [facility] Work Phone: Blood lymphocytes/100 leukoc yteson 01-10-2022 Lymphocytes/100 WBC (Bld) 24.8 % 19-41 [facility] Work Phone: Blood monocytes/100 leukocyt eson 01-10-2022 Monocytes/100 WBC (Bld) 5.9 % 0-10 [facility] Work Phone: Blood platelet mean volumeon 01-10-2022 Platelet mean volume (Bld) [Entitic vol] 9.7 fL 6.2-12.0 [facility] Work Phone: Determination of erythrocyte mean corpuscular volume (MCV)on 01-10-2022 MCV (RBC) [Entitic vol] 83.5 fL 81-99 [facility] Work Phone: Hematocrit Auto (Bld) [Volum e fraction]on 01-10-2022 Hematocrit (Bld) [Volume fraction] 39.6 % 37-47 [facility] Work Phone: Laboratory - Chemistry and C hemistry - challengeon 01-10-2022 ALP [Catalytic activity/Vol] 177 U/L 45-117 [facility] Work Phone: ALT [Catalytic activity/Vol] 23 U/L 13-56 [facility] Work Phone: CO2 [Moles/Vol] 24.0 mmol/L 21.0-32.0 [facility] Work Phone: Globulin (S) [Mass/Vol] 4.4 g/dL 2.2-4.2 [facility] Work Phone: Urea nitrogen/Creatinine [Mass ratio] 14.9 mg/mg 10-20 [facility] Work Phone: Laboratory - Hematology and Cell countson 01-10-2022 Erythrocyte distribution width (RBC) [Entitic vol] 39.3 fL 35.1-43.9 [facility] Work Phone: Erythrocyte distribution width (RBC) [Ratio] 13.1 % 11.6-14.6 [facility] Work Phone: Immature granulocytes/100 WBC (Bld) 0.500 % 0.0-0.9 [facility] Work Phone: Comment on above: IG% - Immature Granu locytes (promyelocytes, myelocytes and metamyelocytes) > 1% indicates that a LEFT SHIFT is Present. MCH (RBC) [Entitic mass] 27.4 pg 27.0-32.0 [facility] Work Phone: Nucleated RBC/100 WBC (Bld) [Ratio] 0 % 0-5 [facility] Work Phone: MCHC Auto (RBC) [Mass/Vol]on 01-10-2022 MCHC (RBC) [Mass/Vol] 32.8 g/dL 32-36 [facility] Work Phone: No Panel Informationon 01-10 Estimated GFR (MDRD) Amer 71 mL/min >60 [facility] Work Phone: Comment on above: GFR Calc Estimated GFR (MDRD) Non-Af Amer 59 mL/min >60 [facility] Work Phone: Comment on above: Non- GFR Calc Thyroid Stimulating Hormone (TSH) 0.11 uIU/mL 0.358-3.74 [facility] Work Phone: Platelets bldon 01-10-2022 Platelets (Bld) [#/Vol] 559 10*3/uL 150-450 [facility] Work Phone: Serum or plasma albumin shonna urement (mass/volume)on 01-10-2022 Albumin [Mass/Vol] 3.9 g/dL 3.2-5.0 [facility] Work Phone: Serum or plasma albumin/glob ulin mass ratioon 01-10-2022 Albumin/Globulin [Mass ratio] 0.9 {ratio} 0.9-2.4 [facility] Work Phone: Serum or plasma calcium shonna urement (mass/volume)on 01-10-2022 Calcium [Mass/Vol] 9.7 mg/dL 8.5-10.1 [facility] Work Phone: Serum or plasma cholesterol in HDL measurement (mass/volume)on 01-10-2022 Cholesterol in HDL [Mass/Vol] 51 mg/dL >40 [facility] Work Phone: Comment on above: The drugs N-Acetylcy steine and Metamizole may falsely depress this assay. Reference Range HDL <40 mg/dL Low HDL Cholesterol HDL >or= 60 mg/dL High HDL Cholesterol Serum or plasma cholesterol in VLDL measurement (mass/volume)on 01-10-2022 Cholesterol in VLDL [Mass/Vol] 41 mg/dL 5-40 [facility] Work Phone: Serum or plasma creatinine m easurement (mass/volume)on 01-10-2022 Creatinine [Mass/Vol] 1.01 mg/dL 0.55-1.02 [facility] Work Phone: Comment on above: The validity of the calculated GFR & GFRAA in patients over 70 years has not been determined. Clinical correlation is essential. Serum or plasma low density lipoprotein (LDL) cholesterol measurement (mass/volume)on 01-10-2022 Cholesterol in LDL [Mass/Vol] 83 mg/dL 0-130 [facility] Work Phone: Serum or plasma urea nitroge n measurement (mass/volume)on 01-10-2022 Urea nitrogen [Mass/Vol] 15 mg/dL 7-18 [facility] Work Phone: Thin prep Papanicolaou smear with manual screeningon 01-10-2022 Thin prep Papanicolaou smear with manual screening 22 U/L 15-37 [facility] Work Phone: Thin prep Papanicolaou smear with manual screening 8 5-15 [facility] Work Phone: Telephone Encounteron 2021 Tongue Presser Authentication Interface Message Text SPECIALTY PHARMACY - Prior Auth Denied Medication and dosing: [facility] Will plan to appeal this denial by submitting additional information Patient questions may be directed to: [phone] option 3 Thank you, Tanisha Doshi PharmD [facility] [phone] option # 3 [facility] Addendum Noteon 04-21-2021 Tongue Presser Authentication Interface Message Text Addended by: JOHNATHON PATEL on: 04/21/2021 10:13 AM Modules accepted: Orders Normal The [employer] [facility] Telephone Encounteron 2021 Tongue Presser Authentication Interface Message Text Patient has a $3000 annual deductible with her pharmacy insurance, leaving her with a ~$635 copay. There is a copay card available but there is a maximum of $300 per fill, so patient's out of pocket cost is $365/month for the foreseeable future. Patient would not qualify for Patient Assistance due to being insurance Nurtec does not currently have a monthly maximum benefit (emgality and aimovig both do). Patient agreeable to any cheaper option to alleviate her migraines/ financial burden. Requesting provider's input as to whether or not [employer]urtec would be appropriate. Please advise, Tanisha Doshi, RafaelD [facility] [phone] option # 3 [facility] Telephone Encounteron 2021 Tongue Presser Authentication Interface Message Text SPECIALTY PHARMACY - Prior Auth Approved Medication: Ajovy A prior authorization has been approved until end date 04/11/22. The pharmacy will contact patient Carla Blackmon and update her on the approval status. Pharmacy to contact patient regarding next step for medication fill. Encounter to be routed to appropriate lab support technician/pharmacist for medication fill outreach. Patient questions may be directed to: [phone] option 3 Thank you, Kirsten Carranza Normal [facility] Tongue Presser Authentication Interface Message Text SPECIALTY PHARMACY - Prior Auth Submitted Medication: Ajovy PA submitted on date: 04/13/21 Method submitted: WQ Pharmacy will addend this encounter with response from plan. Thank you, Kirsten Carranza Normal [facility] [employer] [facility] Telephone Encounteron 2021 Tongue Presser Authentication Interface Message Text SPECIALTY PHARMACY - Prior Auth Submitted Medication: Ajovy ??? PA submitted on date:???04/07/21??? Method submitted:???WQ ??? Pharmacy will addend this encounter with response from plan. ??? Thank you, Leighviolaelton Dillon Margot [facility] [employer] [facility] Melchor 02-10-2020 CNPN Telephone (AGCARDHWG ) CARLA BLACKMON ([id number]) 1960 F Date Time Provider Department 02/10/20 OLGA SHIN AGCARDHWG During your visit today, we recorded the following information about you: Olga Shin MD 02/10/2020 1:34 PM Signed Not sure if she was notified. Please let patient know her stress test was normal in Dec 2019 Jocy Howard LPN 02/10/2020 1:41 PM Signed Patient was notified of Dr Shin's response to stress test results. Jocy Howard LPN Allergies As of Date: 02/10/2020 Noted Allergy Reaction SULFA (SULFONAMIDE ANTIBIOTICS) 08/28/2019 14 - Other: See Comments Comments: Chest tightness PENICILLIN G 06/08/2010 16 - Unknown Date Reviewed: 10/08/2019 Reviewed by: Colette (Thalia) Chin - Fully Assessed Reason for Visit: Results [95] Prescriptions as of 02/10/2020 Sig: LEVETIRACETAM 1,000 MG TABLET Take 1 tablet by mouth twice * ATORVASTATIN 10 MG TABLET Take 10 mg by mouth once guillermo* CHLORZOXAZONE 500 MG TABLET Take 500 mg by mouth three ti* DULOXETINE 60 MG CAPSULE,MARLI* Take 60 mg by mouth twice violeta* HYDROCHLOROTHIAZIDE 25 MG TAB* Take 25 mg by mouth once guillermo* METOPROLOL TARTRATE 100 MG TA* Take 100 mg by mouth twice da* MONTELUKAST 10 MG TABLET Take 10 mg by mouth daily at * SERTRALINE 100 MG TABLET Take 100 mg by mouth every mo* SERTRALINE 50 MG TABLET Take 50 mg by mouth every karo* FLUTICASONE PROPIONATE 50 MCG* Use 1 [place] in each nostril t* ALBUTEROL SULFATE HFA 90 MCG/* Inhale 2 Puffs as instructed * BENADRYL ALLERGY ORAL Take 1 tablet by mouth daily * MELATONIN 3 MG TABLET Take 3 mg by mouth daily at b* CETIRIZINE 10 MG TABLET Take 10 mg by mouth once guillermo* LEVOTHYROXINE 137 MCG TABLET Take 137 mcg by mouth every m* Problem List As Of Date 02/10/2020 Noted Resolved Subarachnoid hemorrhage (HCC) [I60.9] 08/27/2019 Fall [W19.XXXA] 08/28/2019 08/30/2019 Acute respiratory failure with hypoxia (HCC) [J*08/28/2019 08/30/2019 Seizures ([facility]) [R56.9] 08/28/2019 More... Elevated troponin I level [R77.8] 08/28/2019 08/30/2019 TBI (traumatic brain injury) ([facility]) [S06.9X9A] 08/28/2019 Hyponatremia [E87.1] 08/28/2019 08/30/2019 Hypokalemia [E87.6] 08/28/2019 08/30/2019 Hypochloremia [E87.8] 08/28/2019 08/30/2019 Leukocytosis [D72.829] 08/28/2019 08/30/2019 Hypophosphatemia [E83.39] 08/28/2019 08/30/2019 Encounter Status:Closed by OLGA SHIN MD on 02/10/[address] [facility] [place] CARDIAC PERF STRESS/PHARM on 01-07-2020 OK CARDIAC PERF STRESS/PHARM Final Report DATE OF EXAM: Jan 07 2020 12:39PM [facility] CARDIAC PERF STRESS/PHARM / PROCEDURE REASON: Shortness of breath Physician Interpretation PATIENT: Name: MRS. CARLA BLACKMON Age: 59 years Gender: F CONCLUSIONS: 1. SPECT Perfusion Study: Normal. 2. There is no scintigraphic evidence for inducible ischemia. 3. No evidence of scarred myocardium. 4. Left ventricle is small. The left ventricle systolic function is hyperdynamic. 5. Right ventricle is small. The right ventricle systolic function is hyperdynamic. 6. This is a low risk scan. Gated Stress FBP LVEF % 82 Prior Study Comparison No prior nuclear cardiology exam available for comparison. Nuclear Med Report:1-Day Tc-Tetrofosmin Gated SPECT Myocardial Perfusion with Regadenoson Stress: Myocardial perfusion imaging was performed at rest 30 minutes following the IV injection of Tc-99m tetrofosmin. The patient received 0.4 mg of regadenoson, via rapid IV push, immediately followed by Tc-99m tetrofosmin IV. Gated post stress tomographic imaging was performed 30 to 60 minutes later. See administered doses below. [facility] Date of service: 01/07/2020 1:30:00 PM Ordering Physician: Chinyere Shin Requesting Physician: Indication: Dyspnea Interpreting physician: Julio Cannon MD Height: 160.02 cm BSA: 1.75 m2 Weight: 68.95 kg BMI: 26.9 kg/m2 Imaging Protocol Limitation Reason Breast attenuation. Exam Type: Rest Stress Radiopharm: Tc-99m Tetrofosmin Tc-99m Tetrofosmin Dosage(mCi): 10.2 30.2 Stress Agent: Regadenoson 0.4mg Supply provided from [facility] Resting Blood Press: 130/81 mmHg Image Quality The overall study imaging quality was deemed to be good. The following technical issues were noted: Breast attenuation. FINDINGS: Left Ventricle Wall Motion: Stress IR:3D - All segments are normal. Rest IR:3D - Gated Stress FBP - Reversibility - Stress IR:3D Stress IR:3D Gated Stress FBP LVEF: 82 % ED Volume: 39 ml ES Volume: 7 ml TID: 1.09 Perfusion Findings Stress IR:3D - Summed Score=0 All segments demonstrate normal perfusion. Rest IR:3D - Summed Score=0 All segments demonstrate normal perfusion. Stress IR:3D Rest IR:3D Summed Score=0 Summed Score=0 LEFT VENTRICLE The left ventricle is small. Left ventricular systolic function is hyperdynamic. Right Ventricle The right ventricle is small. Right ventricle systolic function is hyperdynamic. Stress Test Findings: There is no scintigraphic evidence for inducible ischemia. There is no evidence of scarring. Final ------ Stress ECG Report: [facility] Date of service: 01/07/2020 1:30:00 PM Ordering physician: OLGA SHIN Specialist: Brenda Burkett RN Electrical Technology Instructor: Rebecca Vera RN Stress ECG interpreting physician: Aashish Navarro MD PATIENT: Name: MRS. CARLA BLACKMON Age: 59 years Gender: F Height: 160.02 cm BSA: 1.75 m2 Weight: 68.95 kg BMI: 26.9 kg/m2 STRESS ECG CONCLUSION: Conclusion: Normal Comments: Stress ECG negative for ischemia STRESS ECG SUMMARY: The patient's resting heart rate was 61 bpm and blood pressure was 130/81 mmHg. The maximum heart rate was 81 bpm, which is 51% predicted for age. The double product achieved was [address]. Peak heart rate was 81 bpm and peak blood pressure was 126/82 mmHg. STRESS ECG FINDINGS: Indications: Dyspnea Diagnosis: Hypertension, Asthma, Hyperlipidemia and PVCs Medications: albuterol, atorvastatin, cetirizine, chlorzoxazone, duloxetine, flonase, HCTZ, keppra, levothyroxine, metoprolol, montelukast Resting ECG: Normal Sinus Rhythm, Nonspecific St-T Wave Changes and Prolonged QT Interval Pharamcologic Protocol: Regadenoson Stress Test: +----+--+---+---+ Step HR SYS GENTRY +----+--+---+---+ 1 81 126 82 +----+--+---+---+ 2 84 121 75 +----+--+---+---+ 3 77 127 80 +----+--+---+---+ 4 76 +----+--+---+---+ 5 70 124 80 +----+--+---+---+ 6 67 +----+--+---+---+ 7 66 +----+--+---+---+ 8 66 125 74 +----+--+---+---+ +-----+--+---+---+ HR SYS GENTRY +-----+--+---+---+ Final 81 126 82 +-----+--+---+---+ +----+ -+ + Step Arrhythmias Symptoms +----+ -+ + 1 Rare PVC (<3/min) SOB +----+ -+ + 2 Rare PVC (<3/min) SOB +----+ -+ + 3 SOB +----+ -+ + 4 SOB and Headache +----+ -+ + 5 SOB and Headache +----+ -+ + 6 SOB and Headache +----+ -+ + 7 SOB and Headache +----+ -+ + 8 SOB and Headache +----+ -+ + Resting HR: 61 bpm Peak HR: 81 bpm (51% MPHR) Resting BP: 130 / 81 mmHg Peak BP: 126 / 82 mmHg Chronotropic response index (CRI): 0.27 Rate Pressure Product (RPP): 96306 Reason for test termination: End of Protocol. Symptoms during test: Shortness of breath and headache. Blood pressure response: Normal BP response ST segment and T wave changes: No ST changes Arrhythmias: Unifocal PVCs Comments: Lexiscan 0.4 IVP, lungs CTA Final ------ Stress Hot Metal Mixer Operator Report: [facility] Date of service: 01/07/2020 1:30:00 PM Supervising physician: Aashish Navarro MD PATIENT: Name: MRS. CARLA BLACKMON Age: 59 years Gender: F The supervising physician was present during the stress procedure. Final Sugar Grinder: ROSITA Transcribe Date/Time: Jan 07 2020 1:30P Dictated by : JULIO CANNON MD This examination was interpreted and the report reviewed and electronically signed by: JULIO CANNON MD on Jan 07 2020 12:45PM EST Normal [facility] NURSING PROGon 01-07-2020 NURSING PROG HNO ID: [id number] Author: Brenda (Rn) LIAM Burkett Service: Nursing Author Type: Registered Nurse Type: Nursing Progress Note Filed: 01/07/2020 11:27 AM Note Text: # 24 IV started R wrist x 2 attempts . Pt tolerated well. DCd intact post testing. Lexiscan Nuclear Stress Test discussed with patient, voiced understanding. Normal [facility] PROGRESSon 01-07-2020 PROGRESS HNO ID: [id number] Author: Usama RodriguesRtJona Shah Service: Radiology Author Type: Registered Nurse Surgical Services Type: Progress Notes Filed: 01/07/2020 11:52 AM Note Text: RADIOLOGY SERVICE PROGRESS NOTE SERVICE DATE: 01/07/2020 SERVICE TIME: 11:51 AM PATIENT IDENTITY VERIFICATION COMPLETED USING TWO (2) STANDARD IDENTIFIERS: Name and Date of confirmed by patient verbally FALL SCREENING: Has the patient had 2 falls in the last year or 1 fall with injury or currently using an Ambulatory Assistive Device (Walker, Cane, Wheelchair, Crutches, etc.)? No PATIENT GENDER DATA: .female : No ALLERGIES: Reviewed and unchanged MEDICATIONS REVIEWED: Not applicable PATIENT RELEVANT IMPLANT DATA REVIEWED: Not Applicable CREATININE: Creatinine Date Value Ref Range Status 08/30/2019 0.49 (L) 0.58 - 0.96 mg/dL Final 08/29/2019 0.54 (L) 0.58 - 0.96 mg/dL Final 08/28/2019 0.66 0.58 - 0.96 mg/dL Final eGFR-All Other Races Date Value Ref Range Status 10/29/2010 >60 Final Comment: eGFR (Estimated GFR) varies with race, age and gender. Clinical correlation is recommended. eGFR is not calculated for patient age <18. Units of measure: mL/min/1.73 m squared P.O.C.T. RESULTS: N/A January 07, [address] PERFORMED: No IV SITE: Ambulatory: A peripheral IV was started in the Right forearm with a Angio cath: 24 gauge. POST EXAM PIV STATUS: Discontinued PROCEDURE TYPE: NM Stress: 10.2mCi [id number] was administered IV for Rest Imaging at 1020 by ms. 30.2 mCi [id number] was administered IV for Stress Imaging at 1135 by ty. ADMINISTRATION TIME: 1020 PATIENT DISCHARGED TO: Ambulatory patient, left NM department area. A Diagnostic radioactive procedure has taken place, with no further precautions necessary other than routine body substance precautions. More information regarding radiation safety can be found using this link: [email or web address] SIGNATURE: RT Landry PATIENT NAME: Carla Blackmon DATE: January 07, 2020 TIME: 11:51 AM PAGER/CONTACT #: Margot [facility] PROGRESSon 10-08-2019 PROGRESS HNO ID: [id number] Author: Olga Shin Service: ? Author Type: Physician Type: Progress Notes Filed: 10/08/2019 4:54 PM Note Text: - Virtual Visit Encounter - [facility] - General Cardiology Office Note Date: 10/08/2019 Patient: Carla Blackmon : 1960 PRIMARY CARE PHYSICIAN: Edie Crowder NP ([facility]) [address] [place] [address] Virtual Visit: Patient has been identified by name and date of : Yes Chief Complaint Patient presents with: [facility] Follow Up HPI: Carla Blackmon is a 59 year old female with essential hypertension, breast cancer status post mastectomy in and chemoradiation, asthma, recent subarachnoid hemorrhage and seizures after a fall. Patient is scheduled for a virtual cardiology visit today. I had seen her as inpatient consult for sinus tachycardia as well as elevated troponin. Her high sensitivity troponin peaked to 381 and then trended down. She did not have any chest pain during this time. Her telemetry consistently revealed sinus tachycardia. She had an echocardiogram revealing normal biventricular systolic function, no significant valvular abnormalities and grade 2 diastolic dysfunction. Patient states that she has been doing well since discharge. She is taking Keppra for seizure disorder. She resides at home REVIEW OF SYSTEMS: GENERAL: Negative for:Weight loss and Weight gain HEENT: Negative for:Nosebleeds RESPIRATORY: + for:Shortness of breath with taking stairs GASTROINTESTINAL: Negative for:Blood in stool MUSCULOSKELETAL: Negtive for: Muscle or joint pain, stiffness, Joint swelling SKIN: No rash HEMATOLOGICAL/LYMPHATI C: Negative for: Easy bruising and Easy bleeding CARDIOVASCULAR: As stated in HPI. 10 system review negative except as stated in HPI There were no vitals taken for this visit. PAST MEDICAL HISTORY Diagnosis Date - GERD (gastroesophageal reflux disease) - HTN (hypertension) - Seizures (HCC) 08/2019 - Subarachnoid hemorrhage (HCC) - Traumatic brain injury (HCC) 08/2019 History reviewed. No pertinent surgical history. Social History Tobacco Use - Smoking status: Never Smoker - Smokeless tobacco: Never Used Substance Use Topics - Alcohol use: Never Frequency: Never - Drug use: Never FAMILY HISTORY Problem Relation Age of Onset - other (chf) Mother - Heart Attack Father ALLERGIES Allergen Reactions - Sulfa (Sulfonamide * Other: See Comments Chest tightness - Penicillin G Unknown Current Outpatient Medications Medication Sig Dispense Refill - levETIRAcetam (KEPPRA) 1,000 mg tablet Take 1 tablet by mouth twice daily. 30 tablet 1 - atorvastatin (LIPITOR) 10 mg tablet Take 10 mg by mouth once daily. - chlorzoxazone (PARAFON FORTE DSC) 500 mg tablet Take 500 mg by mouth three times daily as needed for Muscle Spasm (Neck pain). - DULoxetine (CYMBALTA) 60 mg capsule Take 60 mg by mouth twice daily. - hydroCHLOROthiazide (HYDRODIURIL, ESIDRIX) 25 mg tablet Take 25 mg by mouth once daily. - metoprolol tartrate, short acting, (LOPRESSOR) 100 mg tablet Take 100 mg by mouth twice daily. - montelukast (SINGULAIR) 10 mg tablet Take 10 mg by mouth daily at bedtime. - sertraline (ZOLOFT) 100 mg tablet Take 100 mg by mouth every morning. - sertraline (ZOLOFT) 50 mg tablet Take 50 mg by mouth every evening. - fluticasone (FLONASE ALLERGY RELIEF) 50 mcg/actuation nasal spray Use 1 [place] in each nostril twice daily. - albuterol HFA (PROAIR HFA) 90 mcg/actuation inhaler Inhale 2 Puffs as instructed twice daily as needed for Wheezing/Shortness of Breath. - diphenhydramine HCl (BENADRYL ALLERGY ORAL) Take 1 tablet by mouth daily at bedtime. - melatonin 3 mg tablet Take 3 mg by mouth daily at bedtime. - cetirizine (ZYRTEC) 10 mg tablet Take 10 mg by mouth once daily. - levothyroxine (SYNTHROID) 137 mcg tablet Take 137 mcg by mouth every morning. No current facility-administered medications for this visit. Patient's most recent labs, imaging, EKG and echo data were personally reviewed. IMPRESSION AND RECOMMENDATIONS: Elevated troponin Sinus tachycardia Shortness of breath She did have mildly elevated troponin levels. No chest pain however she does get some shortness of breath after heavy exertion. We'll do a myocardial perfusion stress test with Lexiscan. We'll tentatively schedule her after a month. Recent subarachnoid hemorrhage Seizures. Follows up with neurology. Currently on Keppra. Hyperlipidemia continue on statin. This is a telehealth visit in lieu of in-person visit due to nationwide COVID?19 emergency. Verbal consent was obtained from the patient prior to initiation of this visit. Telephone call between my location and the patient's location was used for this visit. Patient's name and date of were confirmed verbally. I spent a total of 25 minutes of time during this real-time, interactive virtual clinical encounter, which was conducted using telephone technology. Greater than 50% of the time was devoted to counseling and coordinating care including the review of records, pertinent lab data and studies, discussing diagnostic evaluation and workup, planned therapeutic interventions and future disposition of care. All questions from patient were answered. Olga Shin MD, [facility] [facility] Pager: [phone] October 08, 2019 [facility] 09-01-2019 AYAD Telephone (AKMICHELLE) CARLA BLACKMON ([id number]) 1960 F Date Time Provider Department 09/01/19 FRANCE ARROYO (STEFFI YOST)DIANA During your visit today, we recorded the following information about you: France Arroyo APRN.STEFFI ROLON 09/01/2019 11:49 AM Signed Hospital admission with seizures/cerebral contusion. Cardiology consulted for tachycardia and elevated troponin. Please arrange out patient follow up in 4-[address] Shin or RITIKA. May need outpatient stress testing. Thank you, EDWARD Olivo 09/01/2019 4:08 PM Signed Called and left voicemail asking patient to call the office and schedule. Clementina Licona 09/01/2019 16:08:07 Allergies As of Date: 09/01/2019 Noted Allergy Reaction SULFA (SULFONAMIDE ANTIBIOTICS) 08/28/2019 14 - Other: See Comments Comments: Chest tightness PENICILLIN G 06/08/2010 16 - Unknown Date Reviewed: 08/29/2019 Reviewed by: Chris (Rn) LIAM Persaud - Fully Assessed Reason for Visit: Appointment [186] Prescriptions as of 09/01/2019 Sig: LEVETIRACETAM 1,000 MG TABLET Take 1 tablet by mouth twice * OXYCODONE 5 MG TABLET Take 1 tablet by mouth every * DEXTROMETHORPHAN-GUAIF ENESIN * Take 10 mL by mouth four time* ATORVASTATIN 10 MG TABLET Take 10 mg by mouth once guillermo* CHLORZOXAZONE 500 MG TABLET Take 500 mg by mouth three ti* DULOXETINE 60 MG CAPSULE,MARLI* Take 60 mg by mouth twice violeta* HYDROCHLOROTHIAZIDE 25 MG TAB* Take 25 mg by mouth once guillermo* METOPROLOL TARTRATE 100 MG TA* Take 100 mg by mouth twice da* MONTELUKAST 10 MG TABLET Take 10 mg by mouth daily at * SERTRALINE 100 MG TABLET Take 100 mg by mouth every mo* SERTRALINE 50 MG TABLET Take 50 mg by mouth every karo* FLUTICASONE PROPIONATE 50 MCG* Use 1 [place] in each nostril t* ALBUTEROL SULFATE HFA 90 MCG/* Inhale 2 Puffs as instructed * BENADRYL ALLERGY ORAL Take 1 tablet by mouth daily * MELATONIN 3 MG TABLET Take 3 mg by mouth daily at b* CETIRIZINE 10 MG TABLET Take 10 mg by mouth once guillermo* LEVOTHYROXINE 137 MCG TABLET Take 137 mcg by mouth every m* Problem List As Of Date 09/01/2019 Noted Resolved Subarachnoid hemorrhage (HCC) [I60.9] 08/27/2019 Fall [W19.XXXA] 08/28/2019 08/30/2019 Acute respiratory failure with hypoxia (HCC) [J*08/28/2019 08/30/2019 Seizures (HCC) [R56.9] 08/28/2019 More... Elevated troponin I level [R79.89] 08/28/2019 08/30/2019 TBI (traumatic brain injury) (HCC) [S06.9X9A] 08/28/2019 Hyponatremia [E87.1] 08/28/2019 08/30/2019 Hypokalemia [E87.6] 08/28/2019 08/30/2019 Hypochloremia [E87.8] 08/28/2019 08/30/2019 Leukocytosis [D72.829] 08/28/2019 08/30/2019 Hypophosphatemia [E83.39] 08/28/2019 08/30/2019 Encounter Status:Closed by CLEMENTINA LICONA on 09/01/[address] [facility] Basic Metabolic Panelon 08-17 Anion gap [Moles/Vol] 12 mmol/L Normal 9-18 [facility] Comment on above: Performed By: #### E DICG #### [facility] [address] [place], [place] [address] Calcium [Mass/Vol] 9.6 mg/dL Normal 8.5-10.2 [facility] Comment on above: Performed By: #### E DICG #### [facility] [address] [place], [place] [address] Chloride [Moles/Vol] 99 mmol/L Normal 97-[address] [facility] Comment on above: Performed By: #### E DICG #### [facility] [address] [place], [place] [address] CO2 Blood 24 mmol/L Normal 22-30 [facility] Comment on above: Performed By: #### E DICG #### [facility] [address] [place], [place] [address] Creatinine [Mass/Vol] 0.49 mg/dL Low 0.58-0.96 [facility] Comment on above: Performed By: #### E DICG #### [facility] [address] [place], [place] [address] Glucose [Mass/Vol] 89 mg/dL Normal 74-99 [facility] Comment on above: Result Comment: The [place] [employer] (ADA) provides guidance for cutoff values for fasting glucose and random glucose. The ADA defines fasting as no caloric intake for at least 8 hours.Fasting plasma glucose results between 100 to 125 mg/dL indicate increased risk for diabetes (prediabetes). Fasting plasma glucose results greater than or equal to 126 mg/dL meet the criteria for diagnosis of diabetes. In the absence of unequivocal hyperglycemia, results should be confirmed by repeat testing. In a patient with classic symptoms of hyperglycemia or hyperglycemic crisis, random plasma glucose results greater than or equal to 200 mg/dL meet the criteria for diagnosis of diabetes. Reference: Standards of Medical Care in Diabetes 2016; [place] [employer]. Diabetes Care. 2016;39(Suppl 1). Performed By: #### E DICG #### [facility] [address] [place] [id number] Potassium [Moles/Vol] 3.0 mmol/L Low 3.7-5.1 [facility] Comment on above: Performed By: #### E DICG #### [facility] [address] [place] [address] Sodium [Moles/Vol] 135 mmol/L Low 136-144 [facility] Comment on above: Performed By: #### E DICG #### [facility] [address] [place] [id number] Urea nitrogen [Mass/Vol] 5 mg/dL Low 7-21 [facility] Comment on above: Performed By: #### E DICG #### [facility] [address] [place] [address] CASE MANAGEMon 08-30-2019 CASE MANAGEM HNO ID: [id number] Author: Shanita Decker (Sw) Service: Care Management Author Type: Sausage Cutter Type: Care Mgt Progress Note Filed: 08/30/2019 3:05 PM Note Text: CARE MANAGEMENT DISCHARGE NOTE SERVICE DATE: 08/30/2019 SERVICE TIME: 3:01 PM LOS: 3 days Admission Date: 08/27/2019 DISCHARGE ARRANGEMENT (list agency and phone number) Discharge Arrangement: Home CAREGIVER ASSESSMENT: Caregiver is ready, willing and able to meet the patient's needs as recommended by the inter-professional team:: Yes Does the patient have an acute stroke diagnosis, or has the patient had a stroke during this admission?: No Patient's transition needs and plan for meeting these needs: Home HANDOFF COMMUNICATION: Handoff to: Primary Care Physician Primary Care Physician Name/Phone: Edie Crowder [phone] TRANSPORTATION ARRANGEMENTS: Transportation Arrangements: Car ADDITIONAL CONTACT RESOURCES: n/a Discharge orders complete. Pt continues to decline home care states she doesn't feel like she needs it. Pt states she lives with her and he is helpful. Family to transport home. SIGNATURE: JAMES Tiwari PATIENT NAME: Carla Blackmon DATE: August 30, 2019 TIME: 3:01 PM PAGER/CONTACT #: [phone] [facility] Hemogram/Diffon 08-30-2019 Abs Immature Grans 0.08 thou/cmm High 0.00-0.05 [facility] Comment on above: Performed By: #### E DICG #### [facility] [address] [place], [place] [address] Abs Neut (ANC) 11.08 thou/cmm High 1.56-6.13 [facility] Comment on above: Performed By: #### E DICG #### [facility] [address] [place] [address] Abs. Baso 0.10 thou/cmm High 0.01-0.08 [facility] Comment on above: Performed By: #### E DICG #### [place] [address] Abs. [place] 0.80 thou/cmm High 0.27-0.70 [facility] Comment on above: Performed By: #### E DICG #### [address] [address] Basophils/100 WBC (Bld) 0.6 % Normal [facility] Comment on above: Performed By: #### E DICG #### [address] [address] Eosinophils (Bld) [#/Vol] 2.40 thou/cmm High 0.00-0.31 [facility] Comment on above: Performed By: #### E DICG #### [address] [address] Eosinophils/100 WBC (Bld) 14.3 % Normal [facility] Comment on above: Performed By: #### E DICG #### [address] [address] Erythrocyte distribution width (RBC) [Ratio] 13.5 % Normal 11.7-14.4 [facility] Comment on above: Performed By: #### E DICG #### [address] [address] Hematocrit (Bld) [Volume fraction] 35.1 % Normal 34.1-44.9 [facility] Comment on above: Performed By: #### E DICG #### [facility] [address] [place] [address] Hemoglobin (Bld) [Mass/Vol] 11.6 g/dL Normal 11.2-15.7 [facility] Comment on above: Performed By: #### E DICG #### [facility] [address] [place] [address] Immature Grans 0.50 % Normal [facility] Comment on above: Performed By: #### E DICG #### [facility] [address] [place] [address] Lymphocytes (Bld) [#/Vol] 2.30 thou/cmm Normal 1.18-3.74 [facility] Comment on above: Performed By: #### E DICG #### [place] [address] Lymphocytes/100 WBC (Bld) 13.7 % Normal [facility] Comment on above: Performed By: #### E DICG #### [facility] [address] [place] [address] MCH (RBC) [Entitic mass] 28.0 pg Normal 25.6-32.2 [facility] Comment on above: Performed By: #### E DICG #### [place] [address] MCHC (RBC) [Mass/Vol] 33.0 % Normal 31.6-34.8 [facility] Comment on above: Performed By: #### E DICG #### [facility] [address] [place] [address] MCV (RBC) [Entitic vol] 84.6 fL Normal 79.4-94.8 [facility] Comment on above: Performed By: #### E DICG #### [place] [address] Monocytes/100 WBC (Bld) 4.8 % Normal [facility] Comment on above: Performed By: #### E DICG #### [facility] [address] [place], [place] [address] Platelet mean volume (Bld) [Entitic vol] 9.1 fL Low 9.4-12.3 [facility] Comment on above: Performed By: #### E DICG #### [facility] [address] [place], [place] [address] Platelets (Bld) [#/Vol] 466 thou/cmm High 182-369 [facility] Comment on above: Performed By: #### E DICG #### [facility] [address] [place] [address] RBC (Bld) [#/Vol] 4.15 mil/cmm Normal 3.93-5.22 [facility] Comment on above: Performed By: #### E DICG #### [place] [address] RDW SD 41.9 fl Normal 36.4-46.3 [facility] Comment on above: Performed By: #### E DICG #### [facility] [address] [place] [address] Seg Neutrophil 66.1 % Normal [facility] Comment on above: Performed By: #### E DICG #### [place] [address] WBC (Bld) [#/Vol] 16.77 thou/cmm High 3.98-10.04 [facility] Comment on above: Performed By: #### E DICG #### [place] [address] MDRD GFRon 08-30-2019 GFR/1.73 sq M predicted among non-blacks MDRD (S/P/Bld) [Vol rate/Area] mL/min/{1.73_m2} Normal >60mL/min/1 .73m2 [facility] Comment on above: Result Comment: If t he patient is , multiply the result by 1.210. Performed By: #### E DLAG #### [place] [address] PROGRESSon 08-30-2019 PROGRESS HNO ID: [id number] Author: Frederic Carbone Service: Trauma Author Type: Physician Type: Progress Notes Filed: 08/31/2019 1:26 PM Note Text: Trauma Surgery Progress Note SERVICE DATE: 08/30/2019 SUBJECTIVE: NAEON. Complaining of lack of sleep due to noise from room next door. Denies CP, SOB, F/C, N/V, weakness, numbness, tingling, lightheadedness, dizziness. Tolerating diet DIET REGULAR OBJECTIVE: Vitals: Temp (24hrs), Av.8 ?C (98.2 ?F), Min:36.5 ?C (97.7 ?F), Max:37 ?C (98.6 ?F) BP 140/89 Pulse 98 Temp 36.9 ?C (98.4 ?F) (Oral) Resp 16 Ht 160 cm (5' 3) Wt 73.1 kg (161 lb 3.2 oz) SpO2 99% BMI 28.56 kg/m? O2 Therapy: Room Air IANDO: Date 08/29/19699 - 08/30/1965808/30/19699 - 08/31/19 0659 Shift 7068-7418 3205-9744 6952-0883 24 Hour Total 2222-4353 3310-4539 8803-3045 24 Hour Total INTAKE Shift Total OUTPUT # of BMs Number of BMs 1 x 1 x Shift Total Weight (kg) 73.1 73.1 73.1 73.1 73.1 73.1 73.1 73.1 MEDICATIONS Current Facility-Administered Medications Medication Dose Route Frequency - acetaminophen 650 mg tab(s) (TYLENOL) 650 mg ORAL QID - oxyCODONE IR 5 mg tab(s) (ROXICODONE) 5 mg ORAL q 6 H PRN - perflutren lipid microspheres 1.1 mg/mL 1.3 mL injection (DEFINITY) 1.3 mL INTRAVENOUS DIRECTED PRN - metoprolol tartrate (short acting) 50 mg tab(s) (LOPRESSOR) 50 mg ORAL q 8 H - levETIRAcetam 1,000 mg tab(s) (KEPPRA) 1,000 mg ORAL BID - calcium carbonate 1,000 mg chewable tab(s) (TUMS) 1,000 mg ORAL BID Labs: Recent Labs 08/30/19 0334 08/29/19 1050 08/29/19 0138 08/28/19 0500 08/27/19 1601 08/27/19 1558 08/27/19 1548 NA 135* -- 135* 130* -- -- 127* K 3.0* -- 3.0* 3.2* -- -- 4.1 CHLOR 99 -- 99 97 -- -- 95* CO2 24 -- 23 21* -- -- 24 BUN 5* -- 6* 8 -- -- 12 CREAT 0.49* -- 0.54* 0.66 -- -- 0.87 GLUC 89 -- 101* 94 -- -- 108* ANION 12 -- 12 -- -- 8* CA 9.6 -- 8.6 8.5 -- -- 8.2* MG -- -- -- 1.8 -- -- -- P -- -- -- 2.5* -- -- -- ALB -- -- -- -- -- -- 3.8* AST -- -- -- -- -- -- 21 ALT -- -- -- -- -- -- 15 ALKPHOS -- -- -- -- -- -- 159* TBILI -- -- -- -- -- -- 0.4 WBC 16.77* -- 21.47* 18.08* -- -- 24.47* HB 11.6 -- 10.4* 11.1* -- -- 10.7* HCT 35.1 -- 31.5* 33.4* -- -- 32.1* PLT 466* -- 448* 483* -- -- 498* LACT -- 0.9 -- -- 1.9 -- -- INR -- -- -- -- -- -- 0.95 PCO2 -- -- -- -- -- 48.4 -- PO2 -- -- -- -- -- 33.0 -- BE -- -- -- -- -- -2.0 -- HCO3 -- -- -- -- -- 23.8 -- Exam: GENERAL: No distress, Alert NEURO: AANDOx3, CN II-XII grossly intact HEENT: normocephalic, atraumatic LUNGS: Unlabored breathing slight wheeze on R CARDIAC: Regular rate and rhythm as above ABDOMEN: Soft, non-tender, non-distended EXTREMITIES: MURPHY, strength equal SKIN: Skin color, texture, turgor normal, No rashes or lesions ASSESSMENT AND PLAN: Active Hospital Problems Diagnosis Date Noted - Fall 08/28/2019 - Acute respiratory failure with hypoxia ([facility]) 08/28/2019 - Seizures ([facility]) 08/28/2019 - Elevated troponin I level 08/28/2019 - TBI (traumatic brain injury) ([facility]) 08/28/2019 - Hyponatremia 08/28/2019 - Hypokalemia 08/28/2019 - Hypochloremia 08/28/2019 - Leukocytosis 08/28/2019 - Hypophosphatemia 08/28/2019 - Subarachnoid hemorrhage ([facility]) 08/27/2019 59 year old female s/p fall with SAH, seizure Imaging performed: 1. CT H/N, CXR, pelvis XR, rpt CT brain 08/[address] brain, CXR, CTA H/N 08/27 Traumatic Inuries: 1. Intracranial hemorrhage Operations: 1. none Care Plan: 2. Reg diet 3. Neurochecks 4. Cardiology consult 1. Echo pending 2. Metoprolol 50mg TID 3. Tele monitoring 4. Outpatient stress test 5. Keppra 1gm bid 6. Pain?control: sched tylenol, prn oxy 7. PT/OT Consulted Services and recs: 1. Neurosurgery 2. Neurology - signed off, f/u with Dr Beard 6wks Dispo Plannin. PT OT recs - home therapy 2. Possible discharge today Prophylaxis and Protocols: 1. BMI > 40?: Yes. 2. Appropriate DVT PPx: Yes. 3. Ulcer PPx indicated: No. 4. Vit D level monitoring if > 65 yo: n/a. 5. ARC monitoring indicated? No. Incidentals: 1. none Follow Up Needs: 1. Neurology f/u with Dr Beard 6wks Assessment and plan discussed with attending: Dr Carbone SIGNATURE: Cali Garcia MD PATIENT NAME: Carla Blackmon DATE: August 30, 2019 TIME: 6:46 AM Pager: below Phone: Trauma Service Pager: For questions or concerns Mon-Fri 6a-5p please page [phone]. After 5pm and on Weekends and Holidays, please page [phone] if in ICU or [phone] if on RNF. Attending Note I evaluated the patient and personally participated in the brennan components on 08/30/2019 I agree with the resident's findings and plan as documented and have discussed the case and management of the patient's care with the resident. Resume home medications, discharge today, outpatient follow-up with neurology, cardiology and neurosurgery Frederic Carbone MD Delayed entry Normal [facility] TSHon 08-30-2019 TSH Qn 0.434 uIU/mL Normal 0.270-4.200 [facility] Comment on above: Result Comment: Preg paul: 1st trimester:(9-12 weeks):0.180-2.900 uIU/mL 2nd trimester: 0.110-3.980 uIU/mL 3rd trimester: 0.480-4.710 uIU/mL Patients taking a biotin dose of up to 5 mg/day should refrain from taking biotin for 4 hours prior to sample collection. Patients taking a biotin dose of 5 to 10 mg/day should refrain from taking biotin for 8 hours prior to sample collection. Patients taking a biotin dose > 10 mg/day should consult with their physician or the laboratory prior to having a sample taken. Clinicians should consider biotin interference as a source of error, when clinically suspicious of the laboratory result. Performed By: #### E DICG #### [facility] [address] [place], [place] [address] Basic Metabolic Panelon 08-17 Anion gap [Moles/Vol] 13 mmol/L Normal 9-18 [facility] Comment on above: Performed By: #### E DICG #### [facility] [address] [place], [place] [address] Calcium [Mass/Vol] 8.6 mg/dL Normal 8.5-10.2 [facility] Comment on above: Performed By: #### E DICG #### [facility] [address] [place], [place] [address] Chloride [Moles/Vol] 99 mmol/L Normal 97-[address] [facility] Comment on above: Performed By: #### E DICG #### [facility] [address] [place], [place] [address] CO2 Blood 23 mmol/L Normal 22-30 [facility] Comment on above: Performed By: #### E DICG #### [facility] [address] [place], [place] [address] Creatinine [Mass/Vol] 0.54 mg/dL Low 0.58-0.96 [facility] Comment on above: Performed By: #### E DICG #### [facility] [address] [place], [place] [address] Glucose [Mass/Vol] 101 mg/dL High 74-99 [facility] Comment on above: Result Comment: The [place] [employer] (ADA) provides guidance for cutoff values for fasting glucose and random glucose. The ADA defines fasting as no caloric intake for at least 8 hours.Fasting plasma glucose results between 100 to 125 mg/dL indicate increased risk for diabetes (prediabetes). Fasting plasma glucose results greater than or equal to 126 mg/dL meet the criteria for diagnosis of diabetes. In the absence of unequivocal hyperglycemia, results should be confirmed by repeat testing. In a patient with classic symptoms of hyperglycemia or hyperglycemic crisis, random plasma glucose results greater than or equal to 200 mg/dL meet the criteria for diagnosis of diabetes. Reference: Standards of Medical Care in Diabetes 2016; [place] [employer]. Diabetes Care. 2016;39(Suppl 1). Performed By: #### E DICG #### [facility] [address] [place], [place] [address] Potassium [Moles/Vol] 3.0 mmol/L Low 3.7-5.1 [facility] Comment on above: Performed By: #### E DICG #### [facility] [address] [place], [place] [address] Sodium [Moles/Vol] 135 mmol/L Low 136-144 [facility] Comment on above: Performed By: #### E DICG #### [facility] [address] [place], [place] [address] Urea nitrogen [Mass/Vol] 6 mg/dL Low 7-21 [facility] Comment on above: Performed By: #### E DICG #### [facility] [address] [place] [id number] CASE MANAGEMon 08-29-2019 CASE MANAGEM HNO ID: [id number] Author: Tamy Chaney) Case RN Service: Care Management Author Type: Registered Nurse Type: Care Mgt Progress Note Filed: 08/29/2019 9:52 AM Note Text: CARE MANAGEMENT PROGRESS NOTE SERVICE DATE: 08/29/2019 SERVICE TIME: 0950 LOS: 2 days Spoke with patient at bedside, discussed PT recommendations of Home PT. Patient currently denying need for HHC. States that was the first time I was up. I am walking to the bathroom by myself. Asked PT to reassess her. Will continue to follow. SIGNATURE: Tamy Willoughby RN PATIENT NAME: Carla Blackmon DATE: August 29, 2019 TIME: 9:50 AM PAGER/CONTACT #: [phone] [facility] CONSULT PROGon 08-29-2019 CONSULT PROG HNO ID: [id number] Author: Debra Abbasi Service: Neurology General Author Type: Nurse Practitioner Type: Consult Progress Note Filed: 08/29/2019 1:50 PM Note Text: NEUROLOGY CONSULT PROGRESS NOTE SERVICE DATE: 08/29/2019 SERVICE TIME: 1330 Current Attending Provider: Don Lizama Subjective Interval History: No reported issues O/N. Pt resting in bed. cEEG still on. Pt has no complaints. Denies MORALES, visual changes, altered speech, N/T/W. Test results and POC reviewed with pt. All questions addressed to her satisfaction. Objective Physical Examination: Alert and oriented to person, place, month year +exp aphasia with mild thought pauses No facial asym PERRL EOMI VFF MAEx4 5/5 strength Follows simple commands without difficulty Sensation intact LT New Labs: WBC (thou/cmm) Date Value 08/29/2019 21.47 08/28/2019 18.08 08/27/2019 24.47 RBC (mil/cmm) Date Value 08/29/2019 3.74 08/28/2019 3.97 08/27/2019 3.80 Platelet Count (thou/cmm) Date Value 08/29/2019 448 08/28/2019 483 08/27/2019 498 BUN (mg/dL) Date Value 08/29/2019 6 08/28/2019 8 08/27/2019 12 Creatinine (mg/dL) Date Value 08/29/2019 0.54 08/28/2019 0.66 08/27/2019 0.87 CBC, Coags, BMP, Mg, Phos Recent Labs 08/29/19 0138 08/28/19 0500 08/27/19 1548 INR -- -- 0.95 APTT -- -- 24.2 NA 135* 130* 127* K 3.0* 3.2* 4.1 CHLOR 99 97 95* CO2 23 21* 24 GLUC 101* 94 108* CA 8.6 8.5 8.2* MG -- 1.8 -- P -- 2.5* -- Liver Function, Amylase, AND Lipase Recent Labs 08/27/19 1548 TPROT 6.4 ALB 3.8* ALT 15 AST 21 ALKPHOS 159* TBILI 0.4 AMYLASE 69 LIPASE 34 DATA: Diagnostic tests reviewed for today's visit: Most recent labs and imaging results. Impression/Recommendat ions 59yo female with PMHx mild TBI presenting with seizure -- C/w keppra -- D/c cEEG; no ictal events O/N. -- Seizure precautions -- Seizure restrictions reviewed with pt -- CTH reveals recent SAH -- CTA H/N unrevealing -- f/u with Dr Beard in 6-8 weeks. Neurology will S/O and remove neurology from treatment team. Please call/page oncall provider with questions or concerns. SIGNATURE: Debra Abbasi APRN.CNP PATIENT NAME: Carla Blackmon DATE: August 29, 2019 TIME: 1:43 PM PAGER/CONTACT #: [phone] [facility] CONSULT PROG HNO ID: [id number] Author: France Mckee (Ritika Rolon) STEFFI Arroyo Service: Cardiovascular Disease Author Type: Nurse Practitioner Type: Consult Progress Note Filed: 08/29/2019 1:17 PM Note Text: CARDIOLOGY CONSULT PROGRESS NOTE CARDIOLOGY ATTENDING: Dr. Shin Date and Reason for initial consult: tachycardiac and elevated troponin INTERVAL HISTORY: Ms. Carla Blackmon is a pleasant 59 year old female who presented with seizures found to have cerebral contusion and subarachnoid hemorrhage. She has a PMhx of HTN, breast CA (s/p remote chemo/radiation/mastec bob), asthma. She was admitted to neuro ICU stablazied and transferred to the floor. She is being seen today in follow up. Cardiology was consulted for tachycardia and elevated troponin. She was given IV metoprolol yesterday for rates 120-140s. No tele to review today, ordered. Rhythm sounds regular on exam. HR 105 with vitals this morning.Troponin trending down. Echo pending. Consider stress testing as an outpatient. PERTINENT ROS: Patient seen resting in bed. She denies cardiac symptoms, chest pain, shortness of breath, palpitations, dizziness, LE swelling. MEDICATIONS: Current Facility-Administered Medications Medication Dose Route Frequency - acetaminophen 650 mg tab(s) (TYLENOL) 650 mg ORAL QID - oxyCODONE IR 5 mg tab(s) (ROXICODONE) 5 mg ORAL q 6 H PRN - perflutren lipid microspheres 1.1 mg/mL 1.3 mL injection (DEFINITY) 1.3 mL INTRAVENOUS DIRECTED PRN - metoprolol tartrate (short acting) 50 mg tab(s) (LOPRESSOR) 50 mg ORAL q 8 H - levETIRAcetam 1,000 mg tab(s) (KEPPRA) 1,000 mg ORAL BID - iv contrast (radiology procedure) INTRAVENOUS DIRECTED PRN - calcium carbonate 1,000 mg chewable tab(s) (TUMS) 1,000 mg ORAL BID PHYSICAL EXAM: Vital Signs 08/28/19 1700 08/28/19 1810 08/28/19 2200 08/29/19 0534 BP: 102/73 112/73 115/77 Pulse: 100 104 117 Resp: Temp: 36.9 ?C (98.4 ?F) 37.2 ?C (99 ?F) TempSrc: Oral Oral SpO2: 99% 98% 93% Weight: 67.4 kg (148 lb 9.4 oz) Height: Temp (24hrs), Av ?C (98.6 ?F), Min:36.8 ?C (98.2 ?F), Max:37.1 ?C (98.8 ?F) Intake/Output: Intake/Output Summary (Last 24 hours) at 08/29/2019 7192 Last data filed at 08/28/2019 1600 Gross per 24 hour Intake 1190.1 ml Output 550 ml Net 640.1 ml Oxygen therapy: RA Gen: AANDO x 3 Cardiac: RRR without murmur, gallop, or rubs. No ectopy. Resp: clear to auscultation bilaterally Abd: Soft, non-tender. Bowel sounds normal. No masses, organomegaly, hernias. Ext: no edema, moves all extremities with no apparent weakness Pulses: +2 radial, +2 dorsalis pedis Tele: no tele , ST Labs: No results found for this basename: CK:3,MB:3,MBP:3,CKMBP: 3,TROPT:3 Recent Labs 08/29/1913708/28/19 0500 08/27/19 1548 WBC 21.47* 18.08* 24.47* HB 10.4* 11.1* 10.7* HCT 31.5* 33.4* 32.1* PLT 448* 483* 498* INR -- -- 0.95 APTT -- -- 24.2 Recent Labs 08/29/1913708/28/19 0500 08/27/19 1548 NA 135* 130* 127* K 3.0* 3.2* 4.1 CHLOR 99 97 95* CO2 23 21* 24 BUN 6* 8 12 CREAT 0.54* 0.66 0.87 GLUC 101* 94 108* ALKPHOS -- -- 159* ALT -- -- 15 AST -- -- 21 Cholesterol, Total 168 10/24/2018 HDL Cholesterol 30 10/24/2018 LDL Calculated 112 10/24/2018 DATA: Echo pending ASSESSMENT AND PLAN: Tachycardia -no tele to review, ordered, rhythm sounds regular on exam, HR 105 with vitals this morning ADDENDUM: tele placed and reviewed, sinus tachycardia 90-110, continue current regimen, continue to monitor -goal is for rate control -continue metoprolol 50 mg TID -echo pending -troponin down trending -asymptomatic -consider outpatient stress test -keep K+ > 4, mag > 2 Cardiology will follow peripherally. Will arrange outpatient follow up with Dr. Shin. Please call with any questions or concerns. SIGNATURE:France Arroyo APRN.MOLD CHANGER PAGER:[phone] [facility] Hemogram/Diffon 08-29-2019 Abs Immature Grans 0.19 thou/cmm High 0.00-0.05 [facility] Comment on above: Performed By: #### E DICG #### [facility] [address] [place] [address] Abs Neut (ANC) 15.46 thou/cmm High 1.56-6.13 [facility] Comment on above: Performed By: #### E DICG #### [facility] [address] [place] [address] Abs. Baso 0.13 thou/cmm High 0.01-0.08 [facility] Comment on above: Performed By: #### E DICG #### [facility] [address] [place] [address] Abs. [place] 0.82 thou/cmm High 0.27-0.70 [facility] Comment on above: Performed By: #### E DICG #### [facility] [address] [place] [address] Basophils/100 WBC (Bld) 0.6 % Normal [facility] Comment on above: Performed By: #### E DICG #### [facility] [address] [place] [address] Eosinophils (Bld) [#/Vol] 2.32 thou/cmm High 0.00-0.31 [facility] Comment on above: Performed By: #### E DICG #### [facility] [address] [place] [address] Eosinophils/100 WBC (Bld) 10.8 % Normal [facility] Comment on above: Performed By: #### E DICG #### [facility] [address] [place] [address] Immature Grans 0.90 % Normal [facility] Comment on above: Performed By: #### E DICG #### [facility] [address] [place], [place] [address] Lymphocytes (Bld) [#/Vol] 2.55 thou/cmm Normal 1.18-3.74 [facility] Comment on above: Performed By: #### E DICG #### [facility] [address] [place], [place] [address] Lymphocytes/100 WBC (Bld) 11.9 % Normal [facility] Comment on above: Performed By: #### E DICG #### [facility] [address] [place], [place] [address] Monocytes/100 WBC (Bld) 3.8 % Normal [facility] Comment on above: Performed By: #### E DICG #### [facility] [address] [place], [place] [address] Seg Neutrophil 72.0 % Normal [facility] Comment on above: Performed By: #### E DICG #### [facility] [address] [place] [address] Erythrocyte distribution width (RBC) [Ratio] 13.5 % Normal 11.7-14.4 [facility] Comment on above: Performed By: #### E DICG #### [facility] [address] [place] [address] Hematocrit (Bld) [Volume fraction] 31.5 % Low 34.1-44.9 [facility] Comment on above: Performed By: #### E DICG #### [facility] [address] [place] [address] Hemoglobin (Bld) [Mass/Vol] 10.4 g/dL Low 11.2-15.7 [facility] Comment on above: Performed By: #### E DICG #### [facility] [address] [place] [address] MCH (RBC) [Entitic mass] 27.8 pg Normal 25.6-32.2 [facility] Comment on above: Performed By: #### E DICG #### [facility] [address] [place] [address] MCHC (RBC) [Mass/Vol] 33.0 % Normal 31.6-34.8 [facility] Comment on above: Performed By: #### E DICG #### [facility] [address] [place] [address] MCV (RBC) [Entitic vol] 84.2 fL Normal 79.4-94.8 [facility] Comment on above: Performed By: #### E DICG #### [facility] [address] [place], [place] [address] Platelet mean volume (Bld) [Entitic vol] 9.3 fL Low 9.4-12.3 [facility] Comment on above: Performed By: #### E DICG #### [facility] [address] [place], [place] [address] Platelets (Bld) [#/Vol] 448 thou/cmm High 182-369 [facility] Comment on above: Performed By: #### E DICG #### [place] [address] RBC (Bld) [#/Vol] 3.74 mil/cmm Low 3.93-5.22 [facility] Comment on above: Performed By: #### E DICG #### [place] [address] RDW SD 41.2 fl Normal 36.4-46.3 [facility] Comment on above: Performed By: #### E DICG #### [address] [address] WBC (Bld) [#/Vol] 21.47 thou/cmm High 3.98-10.04 [facility] Comment on above: Performed By: #### E DICG #### [place] [address] Lactic Acidon 08-29-2019 Lactate [Moles/Vol] 0.9 mmol/L Normal 0.5-2.2 [facility] Comment on above: Performed By: #### E DICG #### [place] [address] NURSING PROGon 08-29-2019 INR Coag (Bld) [Relative time] HNO ID: [id number] Author: Akua Chaney) LIAM Mishra Service: ? Author Type: Registered Nurse Type: Nursing Progress Note Filed: 08/29/2019 9:51 AM Note Text: Nursing Progress Note Patient Name: Carla Blackmon Patient Location: [id number] __ Daily Note: patient had a sepsis alert. Notified OMKAR Mckeon. No new orders at this time. This note was completed by: Akua Mishra RN [facility] PROGRESSon 08-29-2019 PROGRESS HNO ID: [id number] Author: Frederic Carbone Service: Trauma Author Type: Physician Type: Progress Notes Filed: 08/30/2019 4:03 PM Note Text: Trauma Surgery Progress Note SERVICE DATE: 08/29/2019 Trauma Service Pager: For questions or concerns Mon-Fri 6a-5p please page [phone]. After 5pm and on Weekends and Holidays, please page [phone] if in ICU or [phone] if on RNF. SUBJECTIVE: NAEON. Transferred to [facility]. Tolerating diet. Pain controlled. Tolerating diet DIET REGULAR OBJECTIVE: Vitals: Temp (24hrs), Av.8 ?C (100 ?F), Min:35.8 ?C (96.4 ?F), Max:39 ?C (102.2 ?F) BP 115/77 Pulse 117 Temp 37.2 ?C (99 ?F) (Oral) Resp 18 Ht 160 cm (5' 3) Wt 67.4 kg (148 lb 9.4 oz) SpO2 93% BMI 26.32 kg/m? O2 Therapy: Room Air IANDO: Date 08/28/19699 - 08/29/1965808/29/19699 - 08/30/19658 Shift 5986-2706 2461-6815 0230-4987 24 Hour Total 9663-9860 2305-0258 9351-2991 24 Hour Total INTAKE PO 240 240 PO 240 240 IV 950.1 950.1 Volume (mL) 22 22 Volume (mL) 4.1 4.1 Volume (mL) (NaCl 0.9% iv infusion) 224 224 Volume (mL) (calcium gluconate 4 g in NaCl 0.9% 250 mL) 250 250 Volume (mL) (levETIRAcetam iv piggyback 1,000 mg in NaCl (iso-osmotic) 100 mL (KEPPRA)) 100 100 Volume (mL) (sodium phosphate 45 mmol in NaCl 0.9% 250 mL) 250 250 Volume (mL) (magnesium sulfate in sterile water 4 g iv piggyback) 100 100 Shift Total 950.1 240 1190.1 OUTPUT Urine 550 550 Urine Not Saved. 1 x 1 x 2 x Output ([REMOVED] Indwelling Urinary Catheter 08/27/19 Admission to [facility] 16 Fr 08/28/19 1142) 550 550 Shift Total 550 550 Weight (kg) 67 67.4 67.4 67.4 67.4 67.4 67.4 67.4 MEDICATIONS Current Facility-Administered Medications Medication Dose Route Frequency - acetaminophen 650 mg tab(s) (TYLENOL) 650 mg ORAL QID - oxyCODONE IR 5 mg tab(s) (ROXICODONE) 5 mg ORAL q 6 H PRN - perflutren lipid microspheres 1.1 mg/mL 1.3 mL injection (DEFINITY) 1.3 mL INTRAVENOUS DIRECTED PRN - metoprolol tartrate (short acting) 50 mg tab(s) (LOPRESSOR) 50 mg ORAL q 8 H - [MAR Hold due to Transfer] levETIRAcetam 1,000 mg tab(s) (KEPPRA) 1,000 mg ORAL BID - [MAR Hold due to Transfer] iv contrast (radiology procedure) INTRAVENOUS DIRECTED PRN - calcium carbonate 1,000 mg chewable tab(s) (TUMS) 1,000 mg ORAL BID Labs: Recent Labs 08/29/19 0138 08/28/19 0500 08/27/19 1601 08/27/19 1558 08/27/19 1548 NA 135* 130* -- -- 127* K 3.0* 3.2* -- -- 4.1 CHLOR 99 97 -- -- 95* CO2 23 21* -- -- 24 BUN 6* 8 -- -- 12 CREAT 0.54* 0.66 -- -- 0.87 GLUC 101* 94 -- -- 108* ANION 13 12 -- -- 8* CA 8.6 8.5 -- -- 8.2* MG -- 1.8 -- -- -- P -- 2.5* -- -- -- ALB -- -- -- -- 3.8* AST -- -- -- -- 21 ALT -- -- -- -- 15 ALKPHOS -- -- -- -- 159* TBILI -- -- -- -- 0.4 WBC 21.47* 18.08* -- -- 24.47* HB 10.4* 11.1* -- -- 10.7* HCT 31.5* 33.4* -- -- 32.1* PLT 448* 483* -- -- 498* LACT -- -- 1.9 -- -- INR -- -- -- -- 0.95 PCO2 -- -- -- 48.4 -- PO2 -- -- -- 33.0 -- BE -- -- -- -2.0 -- HCO3 -- -- -- 23.8 -- Exam: GENERAL: No distress, alert, cooperative NEURO: AANDOx3, CN II-XII grossly intact HEENT: normocephalic, atraumatic LUNGS: Unlabored breathing CARDIAC: Regular rate and rhythm as above ABDOMEN: Soft, non-tender, non-distended EXTREMITIES: MURPHY, No deformities, No edema SKIN: Skin color, texture, turgor normal, No rashes or lesions ASSESSMENT AND PLAN: Active Hospital Problems Diagnosis Date Noted - Fall 08/28/2019 - Acute respiratory failure with hypoxia ([facility]) 08/28/2019 - Seizures ([facility]) 08/28/2019 - Elevated troponin I level 08/28/2019 - TBI (traumatic brain injury) ([facility]) 08/28/2019 - Hyponatremia 08/28/2019 - Hypokalemia 08/28/2019 - Hypochloremia 08/28/2019 - Leukocytosis 08/28/2019 - Hypophosphatemia 08/28/2019 - Subarachnoid hemorrhage ([facility]) 08/27/2019 59 year old female s/p fall ? Imaging performed: 1. CXR 2. PXR 3. CTH/N ? Traumatic Injuries: 1. ICH ? Operations/Procedures: 1. none ? Care Plan: 1. Transferred to RNF 08/27 2. Reg diet 3. Neurochecks 4. Extubated 08/27 5. Neurosurgery signed off - nonoperative management 6. Cardiology consult 1. SAULO today 2. Metoprolol 50mg TID 7. Keppra 8. Pain?control 9. PT/OT 10. Repeat head CT 08/27 Stable ? ? PPX: 1. DVT: held 2. Ulcer: yes ? Consulted Services and Recommendations: 1. nsg 2. SICU 3. Cards 4. PT/OT ? Dispo Plannin. PT/OT recs NA. Case management following. ? Incidentals: 1. tbd ? Follow Up Needs: 1. tbd SIGNATURE: Jose Miguel Almanzar MD PATIENT NAME: Carla Blackmon DATE: August 29, 2019 TIME: 6:38 AM Pager: see below Trauma Service Pager: For questions or concerns Mon-Fri 6a-5p please page [phone]. After 5pm and on Weekends and Holidays, please page [phone] if in ICU or [phone] if on RNF. Attending Note I evaluated the patient and personally participated in the brennan components on 08/29/2019 I agree with the resident's findings and plan as documented and have discussed the case and management of the patient's care with the resident. Procalcitonin, EEG cleared, f/u on ECHO, anticipate discharge tomorrow. Cardiology addressing troponin, HR and BP. Frederic Carbone MD Delayed entry Normal [facility] Procalcitoninon 08-29-2019 Procalcitonin 0.11 ng/mL High 0.00-0.08 [facility] Comment on above: Result Comment: Used as an aid in the diagnosis and management of severe sepsis and septic shock. Based on studies in ICU patients, procalcitonin levels > 2.00 ng/mL represent an elevated risk of severe sepsis and/or septic shock, while levels <0.50 ng/mL represent a low risk of severe sepsis and/or septic shock. However, levels < 0.50 ng/mL do not exclude infection, as localized infections or systemic infections in early stages (<6 hours) can be associated with low concentrations. Levels between 0.50 and 2.00 ng/mL should be interpreted in the clinical context of the patient, as a variety of non-infectious conditions such as adler, trauma, surgery, and severe cardiogenic shock can cause procalcitonin elevations. Performed By: #### E DICG #### [facility] [address] [place] [id number] THERAPY NTon 08-29-2019 THERAPY NT HNO ID: [id number] Author: Marilou (Circulation Sales Representative) ROBBY Gayle/BEATRIS Service: Speech/Swallow Author Type: Speech Language Pathologist Type: Therapy (PT/OT/Speech/Resp) Filed: 08/29/2019 3:27 PM Note Text: Speech Therapy Speech Evaluation SERVICE DATE: 08/29/2019 SERVICE TIME: 1445 to 1510 ROOM: [place] [address] Results and Recommendations Discussed With: Patient Recommended Discharge Disposition: Home IMPRESSION: Patient was seen for speech-language evaluation only. Patient is demonstrating functional Expressive / Receptive Language skills for the acute care setting. It is reasonably anticipated that the patient will be able to functionally communicate all ADL social / medical wants/needs without difficulty. Rehabilitation Precautions: Cognitive Linguistics Deficits ASSESSMENT: - Patient in bed upon arrival, alert and able to participate in therapy - Assessed speech, language, and cognitive skills: - Speech: Intelligibility: 100% intelligible speech at sentence/conversationa l level. Dysarthria/Apraxia: within functional limits for current situation. Speech pattern is slow yet intelligible; likely baseline - Language: Receptive: within functional limits Expressive: within functional limits - Cognition: Problem solving: within functional limits Memory: within functional limits Reasoning: within functional limits Attention: within functional limits Sequencing: within functional limits Organization: within functional limits - Reading/writing: Within functional limits - Insight: within functional limits for cognitive linguistic issues - Pragmatics: within functional limits The Cognitive Log (Cog-Log) is designed to be a quick quantitative measure of cognition status for use at the bedside with rehabilitation inpatients. It is intended for individuals who have achieved consistent accurate orientation, such as measured by the Orientation Log (O-Log). The Cog-Log can be used to document cognitive progress on a daily basis. All items are scored from 0 to 3 for a total possible score of 30. 3 = correct spontaneous response 2 = correct upon logical cueing (e.g., That was yesterday, so today must be...) 1 = correct upon multiple choice or phonemic cueing 0 = incorrect despite cueing, inappropriate response, or unable to respond Stimulus Response/Score Date 05/19 Time 05/19 Name of Hospital 05/19 Repeat Address 05/19 20-1 05/19 Months Reversed 05/19 30 Seconds 05/19 [id number] 05/19 Go/No-Go 05/19 Address Recall 05/19 Total - Patient presents with deficits in the following areas: normal or baseline speech, language and cognition No further Speech Therapy indicated at this time Tolerated Full Session Goals for Plan of Care: NA Patient /Caregiver Goals: Go Home Speech Rehab Potential: Good PLAN: Treatment Frequency (times per week): Discontinue Therapy Services Reasons Inpatient Therapy Services Discontinued: Patient appears safe and appropriate re: communication, cognition, and swallow function with the ability to return to a baseline level of function Plan of Care Developed with: Patient TREATMENT INTERVENTIONS: Therapy Diagnosis: No Skilled Need Interventions Provided: Speech Language Eval (94744) $ Speech Language Eval (92492) Billed Units: 1 unit Total Treatment Time (minutes): 25 SUBJECTIVE: Current Hospital Course: Chart reviewed; This 59 year old female had fallen on 08/11/19 and hit head. She experienced a subarachnoid hemorrhage, respiratory failure and a seizure. Reason for Speech Therapy Consult: cognitive evaluation Relevant Past Medical History: none on file Patient Report: I feel like I am thinking and talking like my usual self. Home Environment Prior Functional Level: Within Functional Limits Assistance Available: PRN Prior Swallowing Function/Diet Textures: Regular Consistency;Thin Liquids IDDSI Level 0 Please see discipline specific clinical documentation flowsheet for complete details for this therapy evaluation/treatment. SIGNATURE: Marilou Gayle CCC-AUTOMAT CAR ATTENDANT PATIENT NAME: Carla Blackmon DATE: August 29, 2019 TIME: 3:[address] [facility] THERAPY NT HNO ID: [id number] Author: Mago Kapoor/Manolo Shelton Service: Occupational Therapy Author Type: Occupational Therapist Type: Therapy (PT/OT/Speech/Resp) Filed: 08/29/2019 1:36 PM Note Text: Occupational Therapy Evaluation SERVICE DATE: 08/29/2019 SERVICE TIME: 4558 to 1043 ROOM: [place] [address] Recommended Discharge Disposition: Home OT Recommended Discharge Disposition Comments: For IADLs, high level cognition/safety and insight at home to return to functional baseline Anticipated Discharge Needs: Physical Assist at Home;Supervision at Home Physical Assist at Home for: Transportation;Shoppin g;Self Care;Safety;Laundry;Cl eaning;Ambulation;Meal s Supervision at Home due to: Decreased safety awareness;Impaired cognition OT Recommendations to Nursing: With assist of 1 person;ADL?s in chair;To Bathroom for ADL?s /and or Toileting;OOB for meals;Transfer to Chair(walk in halls with one assist) OT 6 Clicks Score: 22 Precautions/Activity Restrictions: Fall Risk;Bed/Chair Alarm ASSESSMENT: Patient presents with deficits in grooming, LE bathing/dressing, functional transfers, functional mobility, decreased safety awareness, and decreased insight to deficits after admitted for seizures and head bleed requiring ICU stay. Requires skilled OT for to maximize independence with out of bed activites of daily living, standing/ out of bed activites of daily living, high level cognition and insight into deficits. Patient Disposition at Start of Session: Supine in Bed;Call Simpson in Reach;Bed Alarm Patient Disposition at End of Session: Supine in Bed;Call Simpson in Reach;Bed Alarm Tolerated Full Session Occupational Therapy Problem List: Cognitive Deficit;Education Deficit;Safety Deficits;Impaired Self Care;Decreased Strength;Functional Mobility Impairment;Balance Impaired;Decreased Activity Tolerance Patient /Caregiver Goals: Go Home;Care For Self Goals for Plan of Care: Grooming with: Independent Lower Body Bathing with: Independent Lower Body Dressing with: Independent Toilet Hygiene with: Independent Toilet Transfer with: Independent Tolerate (minutes of functional activity): 20(standing ADLs) Functional Activity with: Independent Additional Goal 1: Pt to demo good safety with standing ADLs at sink/in room Additional Goal 2: Pt to complete high level IADL simulation for high level thinking Additional Goal 3: Pt to verbalize good insight into what ADLs/IADLs she should have increased help/supervision for at home Rehab Potential: Excellent PLAN: Treatment Frequency (times per week): 5(3-5) Current admission Treatment Interventions: Self Care / Home Management;Education;S trengthening;Functiona l Mobility Training;Balance Training;Cognitive Training Plan of Care developed with: Patient TREATMENT INTERVENTIONS: Therapy Diagnosis: Decreased activities of daily living (ADL);Reduced mobility-other;Abnorma lities of gait and mobility-other;Signs and Symptoms Involving Cognitive Functions and Awareness;Unsteadiness on feet Interventions Provided: Evaluation $ Evaluation-Moderate (74981) Billed Units: 1 unit OT Evaluation Moderate Complexity: Occupational Profile - Extended review of patient's medical record completed including patient's physical, cognitive, and psycho-social history (please see current hospital course of evaluation). Occupational Performance - Pt presents with deficits ingrooming, LE bathing/dressing, functional transfers, functional mobility, decreased safety awareness, and decreased insight to deficits Complexity in Clinical Decision Making - The extent of clinical reasoning was moderate, several treatment options present for the patient, need for modification during the evaluation was minimal/moderate, comorbidities affecting occupational performance: double breast mastectomy, falls Facilitated completion of the [place] Cognitive Assessment (MOCA), which is a rapid screening instrument for mild cognitive dysfunction. From the results (a score of 29/30), pt demo's no deficits in visuospatial / executive functioning, no deficits in memory, no deficits in attention and concentration, min deficits in language, no deficits in abstraction/conceptual thinking, and no deficits in orientation. The total possible score is 30 points; a score of 26 or above is considered normal (no cognitive impairment). Pt rpts that she has no problem walking and has been walking to the bathroom herself, but is crossing her legs when walking and is a fall risk. Discussed having family nearby when getting back into the tub. Total Treatment Time (minutes): 25 SUBJECTIVE: Current Hospital Course: Chart reviewed; Radha is a 59 year old female. GCS upon arrival 10T. She arrives to [facility] ED intubated. Per report, the patient fell and hit her head on . She was evaluated and cleared of injury. Today she had several witnessed seizures. She was transported by ambulance to an outside ED and was given anti-seizure medications in route. She was found to have ICH and it was decided to transfer the patient to [facility] + Small regions of parenchymal contusion again noted along the anterior tip of the left temporal lobe and within the posterior left parietal lobe. Cardiology was consulted for tachycardia and elevated troponin Troponin trending down Reason for Occupational Therapy Consult: Progressive mobility protocol Relevant Past Medical History: double breast mastectomy, falls Patient Report: Honey I'm fine, I've been walking to the bathroom by myself Pain: 0/10 Home Environment Patient Lives With: Spouse Assistance Available: ruffling hemmer automatic( works) Entry To Home: Stairs Number Of Stairs Into Home: 3(in back, only one step in front) Number Of Stairs To Bed/Bath: full flight(no bathroom on main level) Stairs to Bed/Bath with: Unilateral Rail Tub/Shower Type: tub/shower Laundry: main floor Equipment Owned: Cane( uses occasionally) Prior Functional Level: Within Functional Limits Prior Functional Level Comments: Pt normally gets help driving and grocery shopping. Pt normally does her ADLs by herself OBJECTIVE: Cognition/Communicatio n Deficits Responsiveness: Alert;Awake Follows Commands: 1-step Commands;Cueing Needed Cueing to Follow Commands: Minimum Attention Deficits: Distractible;Divided Executive Function Deficits: Safety Awareness;Problem Solving;Insight to Deficits;Judgement Judgement Deficit: Minimal impairment Insight to Deficits: Moderate impairment Problem Solving Deficit: Minimal impairment Safety Awareness Deficit: Minimal impairment Cognitive Clinical Tests and Screens: MoCA Visuospatial/executive : 5 Namin Digits: 2 Letters: 1 Subtraction: 3 Repetition: 0 Fluency: 1 Abstraction: 2 Delayed Recall: 5 Orientation: 6 Points For Educational Level: 1 MoCA Total Score (out of 30): 29 CURRENT FUNCTIONAL STATUS: Current Activities of Daily Living Assist Level Feeding Independent Grooming Stand By Assistance Bathing Upper Body Stand By Assistance Bathing Lower Body Contact Guard Assistance Dressing Upper Body Stand By Assistance Dressing Lower Body Contact Guard Assistance Toileting Stand By Assistance Functional Mobility Assist Level Rolling Supine to Sit Stand By Assistance Sit to Supine Stand By Assistance Scooting Sit to Stand Stand By Assistance Stand to Sit Stand By Assistance Bed to Chair Toilet/Commode Stand By Assistance Functional Mobility Contact Guard Assistance Functional Mobility Comments: pt crosses legs when walking a little unsteady Hand Dominance: Right Range of Motion: WFL Strength: WFL Balance: Dynamic Standing;Static Standing Static Standing Balance: Good Patient able to maintain balance without handhold support, limited postural sway Dynamic Standing Balance: Fair Patient accepts minimal challenge, able to maintain balance while turning head/trunk Edu pt on fall prevention / up with assistance. Pt left in room in bed and bed alarm activated with calllight within reach. Please see discipline specific clinical documentation flowsheet for complete details for this therapy evaluation/treatment. SIGNATURE: GILL Mckeon/Pedro PATIENT NAME: Carla Blackmon DATE: August 29, 2019 TIME: 1:[address] [facility] THERAPY NT HNO ID: [id number] Author: Marilou Crawford Service: Physical Therapy Author Type: Top Former Type: Therapy (PT/OT/Speech/Resp) Filed: 08/29/2019 12:08 PM Note Text: Attestation signed by Bessy RodriguesPt) Caridad at 08/29/2019 12:25 PM I reviewed and agree with the documentation corresponding to this therapy visit. SIGNATURE: Bessy Mclean, PT DATE: August 29, 2019 TIME: 12:25 PM Physical Therapy Treatment SERVICE DATE: 08/29/2019 SERVICE TIME: 1125 to 1148 ROOM: [id number] Recommended Discharge Disposition: Home PT Anticipated Discharge Needs: Physical Assist at Home Physical Assist at Home for: Cleaning;Laundry;Meals ;Stairs;Safety PT Recommendations to Nursing: In halls;To bathroom;Transfer to/from chair;OOB for Meals;With assist of 1 person Device: Hand Held Assist PT 6 Clicks Score: 19 Precautions/Activity Restrictions: Fall Risk ASSESSMENT : Patient Disposition at Start of Session: Supine in Bed;Call Simpson in Reach;Bed Alarm Patient Disposition at End of Session: Supine in Bed;Call Simpson in Reach;Bed Alarm Tolerated Full Session Patient making progress toward goals with improvement today with bed mobility and gait without use of device. Patient is still unsteady with gait, challenged with changes in head positions, gait speed, and directional changes. Patient could still benefit with either home or outpatient therapy (dependent on if transportation available) to work on balance and gait stability to minimize fall risk. Goals ongoing. Physical Therapy Problem List: Safety Deficits;Decreased Activity Tolerance;Decreased Range Of Motion;Decreased Strength;Functional Mobility Impairment;Balance Impaired Patient /Caregiver Goals: Go Home Goals for Plan of Care: Rolling with: Stand By Assistance Transfer supine to/from sit with: Stand By Assistance Transfer sit to/from stand with: Stand By Assistance Ambulate with: Stand By Assistance Distance: 50ft Device: No Device Transfer: complete bed to chair transfer with standby assistance Progress Toward Goals: Progressing as expected Rehab Potential: Good PLAN: Treatment Frequency (times per week): 5(2-5) Current admission Treatment Interventions: Education;Strengthenin g;Functional Mobility Training;Balance Training;Neuromuscular Re-education Plan of Care developed with: Patient TREATMENT INTERVENTIONS: Therapy Diagnosis: Difficulty walking-musculoskeleta l Interventions Provided: Therapeutic Activity (52972);Gait Training (13664) Therapeutic Activity (15874) Treatment Minutes: 8 1 unit Skilled Intervention(s): Instructed patient in supine to and from sit pushing with upper extremities to sit up. Patient completed 2 trials with head of bed at 35 degrees and again from flat bed. Patient does well with logroll technique with cues for hand placement and use of rail. Instruction in sit to and from stand technique with proper hand placement and body positioning at edge of bed/chair. Patient completed 3 trials with emphasis on proper hand placement. Patient on occasion reliant on back of her legs against bed/chair for stability. Education with need to move more slowly and to pause to avoid any dizziness with initial stand. Gait Training (69960) Treatment Minutes: 15 1 unit Skilled Intervention(s): Instruction in sequencing, gait pattern, Instruction in correction of gait deviations. Patient ambulates with slow pace, decrease in foot clearance and cues to look up. Patient with greater instability with lateral trunk sway with changes in gait speed, head position and directional changes. Noted loss of balance x 3 with lite contact guard assist to minimize fall risk. Instruction in stair negotiation using one rail with step to <> reciprocal pattern. Pace is slow, cues to get her entire foot onto the step. Total Timed Code Treatment Minutes: 23 Total Treatment Time (minutes): 23 SUBJECTIVE: Current Hospital Course: Chart reviewed and no significant medical updates relevant to therapy were noted Reason for Physical Therapy Consult : eval and treat Relevant Past Medical History: double breast mastectomy, falls Patient Report: voiced no new complaints. Home Environment Patient Lives With: Spouse Assistance Available: ruffling hemmer automatic( works) Entry To Home: Stairs Number Of Stairs Into Home: 3 Number Of Stairs To Bed/Bath: full flight Stairs to Bed/Bath with: Unilateral Rail Tub/Shower Type: tub Equipment Owned: (no equipment) Prior Functional Level: Within Functional Limits Prior Functional Level Comments: patient reports typically able to ambulate independently without device OBJECTIVE: CURRENT FUNCTIONAL STATUS: Current Functional Mobility Assist Level Additional Information Rolling Stand By Assistance Supine to Sit Contact Guard Assistance Sit to Supine Contact Guard Assistance Scooting Sit to Stand Contact Guard Assistance Stand to Sit Contact Guard Assistance Bed to Chair Toilet/Commode Gait Contact Guard Assistance Gait Device: None Gait Distance (feet): 2 x 45-50ft Stairs Contact Guard Assistance Stairs Device: Rail Number of Stairs: 10 Curb Step Car Transfer General Deviations/Observation s: Arm swing decreased;Emely decreased;Loss of Balance;Narrow Base of Support;Visual scanning/environmental awareness decreased Balance: Static Sitting;Dynamic Sitting;Static Standing;Dynamic Standing Static Sitting Balance: Good Patient able to maintain balance without handhold support, limited postural sway Dynamic Sitting Balance: Good Patient accepts moderate challenge, able to maintain balance while picking up object off floor Static Standing Balance: Fair Patient able to maintain balance with handhold support, may require occasional minimal assistance Dynamic Standing Balance: Fair Patient accepts minimal challenge, able to maintain balance while turning head/trunk Activity Tolerance: Sitting Activity;Standing Activity Sitting Activity: edge of bed Sitting Activity Tolerance (in minutes): 2 Standing Activity: gait Standing Activity Tolerance (in minutes): 3 JH-HLM: 7: Walk 25 feet or more Functional Performance Test Functional Performance Test: Modified 4-Item Dynamic Gait Index Brief Dynamic Gait Index Gait on level surface: 3 Gait with speed changes: 2 Horizontal head turns: 2 Vertical head turns: 2 Total Score: 9 Please see discipline specific clinical documentation flowsheet for complete details for this therapy evaluation/treatment. SIGNATURE: Marilou Crawford PTA PATIENT NAME: Carla Blackmon DATE: August 29, 2019 TIME: 12:[address] [facility] Basic Metabolic Panelon 08-17 Anion gap [Moles/Vol] 12 mmol/L Normal 9-18 [facility] Comment on above: Performed By: #### E DLYT #### [place] [address] Calcium [Mass/Vol] 8.5 mg/dL Normal 8.5-10.2 [facility] Comment on above: Performed By: #### E DLYT #### [facility] [address] [place], [place] [address] Chloride [Moles/Vol] 97 mmol/L Normal 97-[address] [facility] Comment on above: Performed By: #### E DLYT #### [facility] [address] [place], [place] [address] CO2 Blood 21 mmol/L Low 22-30 [facility] Comment on above: Performed By: #### E DLYT #### [facility] [address] [place] [address] Creatinine [Mass/Vol] 0.66 mg/dL Normal 0.58-0.96 [facility] Comment on above: Performed By: #### E DLYT #### [facility] [address] [place] [address] Glucose [Mass/Vol] 94 mg/dL Normal 74-99 [facility] Comment on above: Result Comment: The [place] [employer] (ADA) provides guidance for cutoff values for fasting glucose and random glucose. The ADA defines fasting as no caloric intake for at least 8 hours.Fasting plasma glucose results between 100 to 125 mg/dL indicate increased risk for diabetes (prediabetes). Fasting plasma glucose results greater than or equal to 126 mg/dL meet the criteria for diagnosis of diabetes. In the absence of unequivocal hyperglycemia, results should be confirmed by repeat testing. In a patient with classic symptoms of hyperglycemia or hyperglycemic crisis, random plasma glucose results greater than or equal to 200 mg/dL meet the criteria for diagnosis of diabetes. Reference: Standards of Medical Care in Diabetes 2016; [place] [employer]. Diabetes Care. 2016;39(Suppl 1). Performed By: #### E DLYT #### [facility] [address] [place], [place] [address] Potassium [Moles/Vol] 3.2 mmol/L Low 3.7-5.1 [facility] Comment on above: Performed By: #### E DLYT #### [facility] [address] [place], [place] [address] Sodium [Moles/Vol] 130 mmol/L Low 136-144 [facility] Comment on above: Performed By: #### E DLYT #### [facility] [address] [place], [place] [address] Urea nitrogen [Mass/Vol] 8 mg/dL Normal 7-21 [facility] Comment on above: Performed By: #### E DLYT #### [facility] [address] [place], [place] [address] CONSULTon 08-28-2019 CONSULT HNO ID: [id number] Author: Olga Shin Service: Cardiovascular Medicine Author Type: Physician Type: Consults Filed: 08/28/2019 4:20 PM Note Text: Cardiovascular Intensive Care Consult Note / HANDP August 28, 2019 Patient Name: Carla Blackmon Patient Location: [id number]-3 20* Admission Date: 08/27/2019 Length of Stay: 1 Primary Service: Medical Intensive Care Requesting Physician: Dr. Lizama History of present illness: Patient is a 59 year old White female PMH HTN, h/o breast ca (s/p mastectomy 1990s, chemoradiation to the chest per patient) and asthma, no history of CAD or heart disease who presented with seizures found to have cerebral contusion and subarachnoid hemorrhge. She previously had a fall after getting out of bed. CVICU consulted for tachycardia and GENA 186-->381. Patient has been having low grade fever since 4am which spiked at 8am to 38.2 currently 38.7 accompanied by sinus tachycardia 120-140s. She has new leukocytosis of 24.47. She denied any chest pain, palpitations, nausea or diaphoresis. She denied any prior IL, heart disease, arrhythmia tobacco or alcohol abuse. Lopressor 5mg IV has been given. PO4 2.5 (2.7--4.8) Mg 1.8 K 3.2 EKG today showed sinus tachycardia no new ischemic changes Telemetry reviewed and showed sinus tachycardia only. Subjective Review of Systems Constitutional: Positive for fever. HENT: Negative for ear discharge and nosebleeds. Respiratory: Negative for cough, sputum production and shortness of breath. Cardiovascular: Negative for chest pain, palpitations, orthopnea, leg swelling and PND. Gastrointestinal: Negative for diarrhea and vomiting. Neurological: Positive for seizures. No past medical history on file. No past surgical history on file. No family history on file. Social History Tobacco Use - Smoking status: Not on file Substance Use Topics - Alcohol use: Not on file - Drug use: Not on file No current facility-administered medications on file prior to encounter. No current outpatient medications on file prior to encounter. Objective Present Condition: 08/28/19 0600 08/28/19 0700 08/28/19 0800 08/28/19 0900 BP: 93/66 99/64 97/64 117/75 Pulse: 107 111 120 (!) 143 Resp: 16 22 Temp: 37.7 ?C (99.9 ?F) 37.9 ?C (100.2 ?F) (!) 38.2 ?C (100.8 ?F) (!) 38.7 ?C (101.7 ?F) TempSrc: Bellamy Thermistor Axillary SpO2: 96% 96% 95% 99% Weight: Height: Physical Exam Constitutional: No distress. Eyes: Right eye exhibits no discharge. Left eye exhibits no discharge. No scleral icterus. Neck: No JVD present. No tracheal deviation present. Cardiovascular: Regular rhythm and normal heart sounds. Exam reveals no gallop and no friction rub. No murmur heard. Pulmonary/Chest: No respiratory distress. She has wheezes (b/l diffusely). She has no rales. Abdominal: She exhibits no distension and no mass. There is no abdominal tenderness. There is no rebound and no guarding. Musculoskeletal: General: No deformity or edema. Neurological: She is alert. intubated Skin: She is not diaphoretic. Labs: CBC: Recent Labs 08/28/19 0500 08/27/19 1548 WBC 18.08* 24.47* HB 11.1* 10.7* HCT 33.4* 32.1* PLT 483* 498* MCV 84.1 84.5 COAG: Recent Labs 08/27/19 1548 APTT 24.2 INR 0.95 BMP: Recent Labs 08/28/19 0500 08/27/19 1548 GLUC 94 108* NA 130* 127* K 3.2* 4.1 CHLOR 97 95* CO2 21* 24 ANION 12 8* BUN 8 12 CREAT 0.66 0.87 CHEM: Recent Labs 08/28/19 0500 08/27/19 1548 ALB -- 3.8* TPROT -- 6.4 CA 8.5 8.2* MG 1.8 -- HEPATIC: Recent Labs 08/27/19 1548 ALKPHOS 159* ALT 15 AST 21 TBILI 0.4 LIPASE 34 URINALYSIS:No results for input(s): PH, SPGR, UGLUC, UBILI, UKET, UHB, UPROT, UROBIL, UWBC, SSA in the last 168 hours. Invalid input(s): NITR CARDIAC: No results for input(s): CKTEST, CKMB, CKMBP in the last 168 hours.TROPONIN@:8,No results found for: BNP:8)@ Assessment/Plan Sinus tachycardia -likely secondary to fever -No symptoms of ACS or new ischemic ECG changes -GENA leak likely secondary to tachycardia, can continue to trend -Recommend treating fever and assessing for underlying cause given associated new leukocytosis as well -Continue on metoprolol 50mg tid -Transthoracic echo tomorrow -Outpatient stress test as previous EKG done at [facility] 08/[address]ressions V1-V4 during sinus tachycardia Elevated GENA -Likely secondary to tachycardia -Continue to trend, continue to monitor for symptoms of ACS HTN -BP satisfactory -Can continue to monitor Hypophosphatemia -recommend replacing Hypokalemia -recommend replacing History of breast Ca -s/p b/l mastectomy, chemoradiation to chest -transthoracic echo tomorrow Signed: Lizeth Bedoya MD, PGY-1 Pager: [phone] Date: August 28, 2019 Time: 9:40 AM Patient was seen and discussed with medical student and the resident. I have personally seen and examined the patient. I have reviewed labs, clinical data and pertinent images. I agree with the documentation above. Brennan findings were confirmed and updated. I'll summarize our mutual assessment and plan below. This is a 59-year-old female status post fall followed by seizures. Cardiology is consulted for elevated troponin and sinus tachycardia noted on telemetry. Review telemetry and EKGs in detail. She was previously on metoprolol 100 mg twice a day which is now held due to low blood pressure. Will change the dose to metoprolol 50 mg by mouth 3 times a day. I'll mention that sinus tachycardia is most likely a physiological response and we do not need to treat rates below 130-140 especially if she is asymptomatic. I cannot rule out atrial flutter on one of the EKGs. Even if that's the case, her management will not change. She is not a candidate for anticoagulation due to recent intracranial bleed. Management as directed towards rate control at this time. We'll do transthoracic echocardiogram tomorrow. She does have elevated troponin without any symptoms of myocardial ischemia such as chest pain. This is likely demand ischemia. She can follow-up with me outpatient to consider stress testing. It is not recommended inpatient at this time. Will follow-up tomorrow. Thank you for allowing me to participate in the care of this patient. Please don't hesitate to contact me if there are any questions regarding the care of our mutual patient. Olga Shin MD, [facility] Cardiovascular Medicine Pager: [phone] August 28, 2019 [facility] CONSULT PROGon 08-28-2019 CONSULT PROG HNO ID: [id number] Author: Libia Navarro Service: Critical Care Author Type: Physician Type: Consult Progress Note Filed: 08/28/2019 12:46 PM Note Text: INPATIENT SICU PROGRESS NOTE SERVICE DATE: 08/28/2019 SERVICE TIME: 6:16 AM Subjective NAEON. Patient awake and following commands on vent. Nods yes or no and is able to write on clip pad to communicate. Denies MORALES, vision changes, weakness, numbness, CP, abdominal pain Current Facility-Administered Medications Medication Dose Route Frequency - fentaNYL 20 mcg/mL iv infusion in NaCl 0.9% 100 mL 25-250 mcg/hr INTRAVENOUS CONTINUOUS - potassium chloride ER 20-40 mEq tab(s) (K-DUR, KLOR-CON) 20-40 mEq ORAL/FEEDING TUBE PRN Or - potassium chloride iv piggyback 20 mEq/100 mL 20 mEq INTRAVENOUS PRN - magnesium sulfate in water 2 g in sterile water 50 ml 2 g INTRAVENOUS PRN - sodium phosphate 45 mmol in NaCl 0.9% 250 mL 45 mmol INTRAVENOUS PRN - calcium gluconate 4 g in NaCl 0.9% 250 mL 4 g INTRAVENOUS PRN - levETIRAcetam iv piggyback 1,000 mg in NaCl (iso-osmotic) 100 mL (KEPPRA) 1,000 mg INTRAVENOUS BID - NaCl 0.9% iv infusion 75 mL/hr INTRAVENOUS CONTINUOUS - famotidine 20 mg injection (PEPCID) 20 mg INTRAVENOUS BID - propofol infusion (DIPRIVAN) 5-50 mcg/kg/min INTRAVENOUS CONTINUOUS - potassium phosphate 45 mmol in NaCl 0.9% 250 mL 45 mmol INTRAVENOUS ONCE - calcium gluconate 4 g in NaCl 0.9% 250 mL 4 g INTRAVENOUS ONCE Objective VITAL SIGNS BP 93/66 Pulse 107 Temp (Src) 99.9 (Bellamy Thermistor) Resp 16 Ht 5' 3 (1.60m) Wt 147 lb 11.3 oz (67.0kg) SpO2 96% BMI 26.17 kg/(m2). O2 Therapy: Ventilator, %FIO2: 40(weaned by respiratory) Temp (24hrs), Av.1 ?C (98.8 ?F), Min:36.1 ?C (97 ?F), Max:37.8 ?C (100 ?F) Date 08/27/19 07 - 08/28/19 0659 08/28/19 07 - 08/29/19 0659 Shift 8650-8160 7796-4525 0967-8078 24 Hour Total 7633-0917 6541-9278 1947-2979 24 Hour Total INTAKE IV 608.3 542.3 1150.6 Volume (mL) 67.8 92 159.8 Volume (mL) 27.5 24.3 51.8 Volume (mL) (NaCl 0.9% iv infusion) 413 426 839 Volume (mL) (levETIRAcetam iv piggyback 1,000 mg in NaCl (iso-osmotic) 100 mL (KEPPRA)) 100 100 Shift Total 608.3 542.3 1150.6 OUTPUT Urine 7654 385 5480 Void (ml) 800 800 Output ( Indwelling Urinary Catheter 08/27/19 Admission to Hospital Bellamy 16 Fr) 200 500 700 Shift Total 8361 309 1856 Weight (kg) 67 67 67 67 67 67 67 PHYSICAL EXAM: GENERAL: Alert, no distress, cooperative SKIN: Skin color, texture, turgor normal. No rashes or lesions. LUNGS: Unlabored breathing on O2 Therapy: Ventilator on Liters: 60 sating at SpO2: 96 % CARDIAC: Regular rate ABDOMEN: soft, NTTP EXTREMITIES: ROM of all joint grossly normal: strength grossly normal bilaterally. No deformities noted. NEURO: on vent, propofol of 8, follows commands, motor and sensory intact in all extremities DATA: Diagnostic tests reviewed for today's visit: Recent Labs 08/27/19 1558 PCO2 48.4 PO2 33.0 BE -2.0 HCO3 23.8 Recent Labs 08/28/19 0500 08/27/19 1601 08/27/19 1548 CREAT 0.66 -- 0.87 BUN 8 -- 12 NA 130* -- 127* K 3.2* -- 4.1 CHLOR 97 -- 95* CO2 21* -- 24 ANION 12 -- 8* GLUC 94 -- 108* CA 8.5 -- 8.2* P 2.5* -- -- MG 1.8 -- -- ALB -- -- 3.8* AST -- -- 21 ALT -- -- 15 ALKPHOS -- -- 159* TBILI -- -- 0.4 WBC 18.08* -- 24.47* HB 11.1* -- 10.7* HCT 33.4* -- 32.1* PLT 483* -- 498* LACT -- 1.9 -- Assessment/Plan ACTIVE PROBLEM LIST Subarachnoid Hemorrhage (Hcc) 59 year old female with ICH ? Neuro: ICH - Pain Control: fentanyl, wean to off for SBT - Sedation: propofol, wean to off for SBT - Seizure ppx: keppra 1000 mg BID x 7 days - repeat head CT in am: stable - appreciate NSY recs - head of bed to 30 - continuous EEG: no seizure activity, likely d/c today ? CV: HYPOTENSIVE IN ED - on tele - EKG if indicated - SBP 90-120s overnight - Trops elevated ? Resp: INTUBATED - saturating well on O2 Therapy: Ventilator - CXR pending - SBT/SAT this am, extubate ? GI: - NPO, possible diet post extubation, if unable to, will start TFs - Bowel Regimen: none - GI ppx: pepcid ? Renal: - daily BMP - replete lytes prn - Bellamy, d/c post extubation ? Heme: - transfuse as needed - daily CBC - DVT ppx when ok with NSX ? Endo: - euglycemic - no exogenous use ? ID: - Cultures: - BCx none - UCx none - RCx none - MRSA p - COVID negative ? Ext: - DVT ppx: SCDs - Restraints: soft wrist b/l - PT/OT once extubated ? Ppx: - DVT: SCDs, chemoppx [address] if ok with NSX - GI: pepcid - Seizure: keppra ? Lines: Peripheral 08/27/19 Short Right Antecubital 18 Gauge (Active) Peripheral 08/27/19 Left Forearm 22 Gauge (Active) GI Feed 08/27/19 Admission to Hospital Mouth 16 Fr (Active) Indwelling Urinary Catheter 08/27/19 Admission to Hospital Bellamy 16 Fr (Active) Airway Endotracheal Tube 08/27/19 (Active) Consults: - SICU, NSY ? Dispo: - NSICU, possible floor if extubated later today - SBT/SAT in AM ? Patient Checklist Deep vein thrombosis prophylaxis administered? No. Contraindicated.. Stress ulcer prophylaxis? Yes. Pain addressed? Yes. Nutrition: Enteral- No. TPN- No. PO- No. Restraints? Yes. Dispo needs assessed? Yes. SICU Service Pager: For questions or concerns Mon-Sun 6a-5p please page [phone]. After 5pm and on Weekends and Holidays, please page [phone]. SIGNATURE: Nicole Suarez MD PATIENT NAME: Carla Blackmon DATE: August 28, 2019 TIME: 6:16 AM PAGER: above Critical Care Attestation The critical care treatment was mainly directed to address the following issues: ACTIVE PROBLEM LIST Subarachnoid Hemorrhage (Hcc) Fall Acute Respiratory Failure With Hypoxia (Hcc) Seizures (Hcc) Elevated Troponin I Level Tbi (Traumatic Brain Injury) (Hcc) Hyponatremia Hypokalemia Hypochloremia Leukocytosis Hypophosphatemia Passed SBT and successfully extubated this AM No further seizures per EEG monitoring Neurology team consulted for new onset post-traumatic seizures Tachycardia, resume home lopressor dosing Plan to resume PO diet post extubation Mobilize Possible transfer to the floor in the next 12-24hrs I provided 30 minutes of critical care services which were necessary due to above specified injuries and illnesses. This patient has a high probability of sudden, clinical significant deterioration, which required the highest level of care and preparedness to intervene urgently. I managed and supervised life or organ supporting interventions that require frequent assessments. This time does not include time devoted to teaching and to any procedure I billed separately. I have personally seen and examined this patient and participated in the brennan components of this encounter with the multi-disciplinary ICU team. I discussed the management of this case with the resident and reviewed/confirmed their documentation, attached or in separate note. I personally reviewed today's actual images, the associated image reports, and current labs. I supervised the ordering of additional testing, imaging, labs, and/or consultations. The patient and/or family were fully informed of the findings and plan of care. They had the opportunity to ask questions and raise any issues of concern, all of which were answered and dealt with by me to their stated satisfaction. Management included sedation, pain control and ventilation assessment including need for ventilator, weaning and/or extubation as indicated. Management of critical care illnesses are edited above by me, including system by system plan and are not only limited to infectious disease and tailoring the antibiotic therapy, nutrition assessment and supplementation, electrolyte correction and prevention of ICU related complications using ventilator bundle, sedation holiday and assessment and removal of lines and tubes where indicated. DAILY ICU CHECKLIST: The following items were reviewed and are addressed in the plan of care above: *Need for Restraints. *Need for Bellamy Catheter. *Need for Central Access Devices. *Daily Sedation Holiday. *VTE Prophylaxis. SIGNATURE: Libia Navarro MD PATIENT NAME: Carla Blackmon DATE: August 28, 2019 TIME: 12:[address] [facility] CT BRAIN WO IVCONon 08-28-19 CT BRAIN WO IVCON * * *Final Report* * * DATE OF EXAM: Aug 28 2019 4:14AM [facility] 0504 - CT BRAIN WO IVCON / PROCEDURE REASON: Head trauma, subacute-chronic, new neuro deficit * * * * Physician Interpretation * * * * EXAMINATION: CT BRAIN WO IVCON CLINICAL HISTORY: Intracranial hemorrhage. Follow-up. TECHNIQUE: Serial axial images without IV contrast were obtained from the vertex to the foramen magnum. MQ: CTBWO_3 CT Dose-Length Product (DLP): 860 mGy*cm CT Dose Reduction Employed: Iterative recon COMPARISON: Multiple priors, most recently 08/27/2019 RESULT: Overlying leads are noted, somewhat limiting the exam. Post-operative change: None. Acute change: No evidence of an acute infarct or other acute parenchymal process. Hemorrhage: Hyperdensity along the anterior aspect of the left temporal lobe/sylvian fissure no longer discretely apparent. Minimal hyperdensity in the left posterior parietal region, less conspicuous. No sagrario new hemorrhage in the interval. Mass Lesion / Mass Effect: There is no evidence of an intracranial mass or extraaxial fluid collection. No significant mass effect. Chronic change: None apparent. Parenchyma: There is no significant volume loss. The brain parenchyma is otherwise within normal limits for age. Ventricles: The ventricles are within normal limits of size and configuration for age. Paranasal sinuses and skull base: No depressed calvarial fracture. Subtotal opacification of the frontal sinuses and ethmoid air cells again noted. Mild opacification/mucosal thickening of the bilateral maxillary sinuses. Small right parietal region scalp contusion. IMPRESSION: Interval decrease in conspicuity of minimal subarachnoid hemorrhage and/or surface contusions involving the left temporal-opercular and left parietal regions. No new hemorrhage in the interval. No new intracranial abnormality. Sugar Grinder: [facility] Transcribe Date/Time: Aug 28 2019 7:11A Dictated by : JOSE MIGUEL SÁNCHEZ MD This examination was interpreted and the report reviewed and electronically signed by: JOSE MIGUEL SÁNCHEZ MD on Aug 28 2019 7:18AM EST Normal [facility] CTA HEAD W IVCONon 0 CTA HEAD W IVCON * * *Final Report* * * DATE OF EXAM: Aug 28 2019 8:46PM [facility] 0022 - CTA HEAD W IVCON / PROCEDURE REASON: SAH suspected, initial exam * * * * Physician Interpretation * * * * EXAMINATION: CTA HEAD W IVCON, CTA NECK W IVCON CLINICAL HISTORY: Seizure, fall TECHNIQUE: Spiral high resolution axial images were obtained through the head, neck and superior mediastinum following bolus administration of intravenous contrast for CT angiography. 3D maximum intensity projection images were created, reviewed and archived . MQ: CTAHN_4 Contrast: 76 mL Omnipaque 350 IV Dose-Length Product (DLP): 615 mGy*cm. CT Dose Reduction Employed: Automated exposure control(AEC) and iterative recon COMPARISON: CT brain 08/28/2019 RESULT: BRAIN: Evaluation of the individual slices of the CTA demonstrates no evidence of an acute stroke. ASPECT Score = 10 Hemorrhage: No evidence of acute intracranial hemorrhage. Trace subarachnoid hemorrhage in the left sylvian fissure is not well seen on this examination due to imaging technique. ECASS hemorrhagic transformation score: Not Applicable Spot Sign Presence: Not Applicable Spot Sign Number: Not Applicable Paranasal sinus disease. NECK: Soft tissues: The soft tissue planes are maintained throughout. No evidence of a soft tissue mass in the neck or superior mediastinum. Right paratracheal lymphadenopathy measures up to 1.1 cm in short axis. Spine: Mild anterolisthesis at C4-5 due to facet arthropathy.. Mild degenerative changes are present. Lung apices: Diffuse bronchial thickening in the right upper lobe may represent bronchitis for CT ARTERIOGRAM: Extracranial Circulation: Aortic Arch: Left vertebral artery originates from the aortic arch, an anatomic variant. There is no significant stenosis in the proximal brachiocephalic vessels. Carotid Stenosis: Right Common: No significant stenosis. Right Internal Carotid Plaque: No significant plaque formation. Right Internal Carotid Stenosis (% by NASCET Criteria): 0% Left Common: No significant stenosis. Left Internal Carotid Plaque: Minimal plaque formation. Left Internal Carotid Stenosis (% by NASCET Criteria): 0% Cervical Vertebral Arteries: Patency: Bilateral Dominance: Right Intracranial Circulation: No luminal irregularity in the intracranial circulation. No vascular malformation. Anterior Circulation: There is mild atherosclerosis of the intracranial ICAs without significant luminal narrowing. The ACAs and MCAs are patent. No significant stenosis. No aneurysm. Vertebrobasilar Circulation: The intradural vertebral arteries are patent. The basilar artery is patent. corsetier are patent. SCAs are patent. No significant stenosis. No aneurysm. The major dural sinuses and draining veins are grossly patent. Circular Distributor (topogram) images: Unremarkable. IMPRESSION: Unremarkable CTA head and neck without stenosis, dissection, aneurysm or vascular malformation. Diffuse right upper lobe bronchial thickening may represent bronchitis. Mediastinal lymphadenopathy may be reactive. Sugar Grinder: [facility] Transcribe Date/Time: Aug 28 2019 9:22P Dictated by : CRISTI CANNON MD This examination was interpreted and the report reviewed and electronically signed by: CRISTI CANNON MD on Aug 28 2019 9:35PM EST Normal [facility] CTA NECK W IVCONon 0 CTA NECK W IVCON * * *Final Report* * * DATE OF EXAM: Aug 28 2019 8:46PM [facility] 0024 - CTA NECK W IVCON / PROCEDURE REASON: SAH suspected, initial exam * * * * Physician Interpretation * * * * EXAMINATION: CTA HEAD W IVCON, CTA NECK W IVCON CLINICAL HISTORY: Seizure, fall TECHNIQUE: Spiral high resolution axial images were obtained through the head, neck and superior mediastinum following bolus administration of intravenous contrast for CT angiography. 3D maximum intensity projection images were created, reviewed and archived . MQ: CTAHN_4 Contrast: 76 mL Omnipaque 350 IV Dose-Length Product (DLP): 615 mGy*cm. CT Dose Reduction Employed: Automated exposure control(AEC) and iterative recon COMPARISON: CT brain 08/28/2019 RESULT: BRAIN: Evaluation of the individual slices of the CTA demonstrates no evidence of an acute stroke. ASPECT Score = 10 Hemorrhage: No evidence of acute intracranial hemorrhage. Trace subarachnoid hemorrhage in the left sylvian fissure is not well seen on this examination due to imaging technique. ECASS hemorrhagic transformation score: Not Applicable Spot Sign Presence: Not Applicable Spot Sign Number: Not Applicable Paranasal sinus disease. NECK: Soft tissues: The soft tissue planes are maintained throughout. No evidence of a soft tissue mass in the neck or superior mediastinum. Right paratracheal lymphadenopathy measures up to 1.1 cm in short axis. Spine: Mild anterolisthesis at C4-5 due to facet arthropathy.. Mild degenerative changes are present. Lung apices: Diffuse bronchial thickening in the right upper lobe may represent bronchitis for CT ARTERIOGRAM: Extracranial Circulation: Aortic Arch: Left vertebral artery originates from the aortic arch, an anatomic variant. There is no significant stenosis in the proximal brachiocephalic vessels. Carotid Stenosis: Right Common: No significant stenosis. Right Internal Carotid Plaque: No significant plaque formation. Right Internal Carotid Stenosis (% by NASCET Criteria): 0% Left Common: No significant stenosis. Left Internal Carotid Plaque: Minimal plaque formation. Left Internal Carotid Stenosis (% by NASCET Criteria): 0% Cervical Vertebral Arteries: Patency: Bilateral Dominance: Right Intracranial Circulation: No luminal irregularity in the intracranial circulation. No vascular malformation. Anterior Circulation: There is mild atherosclerosis of the intracranial ICAs without significant luminal narrowing. The ACAs and MCAs are patent. No significant stenosis. No aneurysm. Vertebrobasilar Circulation: The intradural vertebral arteries are patent. The basilar artery is patent. corsetier are patent. SCAs are patent. No significant stenosis. No aneurysm. The major dural sinuses and draining veins are grossly patent. Circular Distributor (topogram) images: Unremarkable. IMPRESSION: Unremarkable CTA head and neck without stenosis, dissection, aneurysm or vascular malformation. Diffuse right upper lobe bronchial thickening may represent bronchitis. Mediastinal lymphadenopathy may be reactive. Sugar Grinder: JUJU Transcribe Date/Time: Aug 28 2019 9:22P Dictated by : CRISTI CANNON MD This examination was interpreted and the report reviewed and electronically signed by: CRISTI CANNON MD on Aug 28 2019 9:35PM EST Normal [facility] Hemogram/Diffon 08-28-2019 Abs Immature Grans 0.07 thou/cmm High 0.00-0.05 [facility] Comment on above: Performed By: #### E DLYT #### [facility] [address] [place], [place] [address] Abs Neut (ANC) 10.09 thou/cmm High 1.56-6.13 [facility] Comment on above: Performed By: #### E DLYT #### [address] [address] Abs. Baso 0.20 thou/cmm High 0.01-0.08 [facility] Comment on above: Performed By: #### E DLYT #### [address] [address] Abs. [place] 1.07 thou/cmm High 0.27-0.70 [facility] Comment on above: Performed By: #### E DLYT #### [address] [address] Basophils/100 WBC (Bld) 1.1 % Normal [facility] Comment on above: Performed By: #### E DLYT #### [facility] [address] [place], [place] [address] Eosinophils (Bld) [#/Vol] 4.45 thou/cmm High 0.00-0.31 [facility] Comment on above: Performed By: #### E DLYT #### [address] [address] Eosinophils/100 WBC (Bld) 24.6 % Normal [facility] Comment on above: Performed By: #### E DLYT #### [facility] [address] [place], [place] [address] Immature Grans 0.40 % Normal [facility] Comment on above: Performed By: #### E DLYT #### [facility] [address] [place], [place] [address] Lymphocytes (Bld) [#/Vol] 2.21 thou/cmm Normal 1.18-3.74 [facility] Comment on above: Performed By: #### E DLYT #### [facility] [address] [place], [place] [address] Lymphocytes/100 WBC (Bld) 12.2 % Normal [facility] Comment on above: Performed By: #### E DLYT #### [facility] [address] [place] [address] Monocytes/100 WBC (Bld) 5.9 % Normal [facility] Comment on above: Performed By: #### E DLYT #### [facility] [address] [place] [address] Seg Neutrophil 55.8 % Normal [facility] Comment on above: Performed By: #### E DLYT #### [facility] [address] [place] [address] Erythrocyte distribution width (RBC) [Ratio] 13.3 % Normal 11.7-14.4 [facility] Comment on above: Performed By: #### E DLYT #### [facility] [address] [place] [address] Hematocrit (Bld) [Volume fraction] 33.4 % Low 34.1-44.9 [facility] Comment on above: Performed By: #### E DLYT #### [facility] [address] [place] [address] Hemoglobin (Bld) [Mass/Vol] 11.1 g/dL Low 11.2-15.7 [facility] Comment on above: Performed By: #### E DLYT #### [facility] [address] [place] [address] MCH (RBC) [Entitic mass] 28.0 pg Normal 25.6-32.2 [facility] Comment on above: Performed By: #### E DLYT #### [facility] [address] [place] [address] MCHC (RBC) [Mass/Vol] 33.2 % Normal 31.6-34.8 [facility] Comment on above: Performed By: #### E DLYT #### [facility] [address] [place] [address] MCV (RBC) [Entitic vol] 84.1 fL Normal 79.4-94.8 [facility] Comment on above: Performed By: #### E DLYT #### [facility] [address] [place] [address] Platelet mean volume (Bld) [Entitic vol] 9.4 fL Normal 9.4-12.3 [facility] Comment on above: Performed By: #### E DLYT #### [facility] [address] [place] [address] Platelets (Bld) [#/Vol] 483 thou/cmm High 182-369 [facility] Comment on above: Performed By: #### E DLYT #### [facility] [address] [place] [address] RBC (Bld) [#/Vol] 3.97 mil/cmm Normal 3.93-5.22 [facility] Comment on above: Performed By: #### E DLYT #### [facility] [address] [place] [address] RDW SD 41.1 fl Normal 36.4-46.3 [facility] Comment on above: Performed By: #### E DLYT #### [facility] [address] [place] [address] WBC (Bld) [#/Vol] 18.08 thou/cmm High 3.98-10.04 [facility] Comment on above: Performed By: #### E DLYT #### [facility] [address] [place] [address] Ionized Calciumon 08-28-2019 Ionized Ca,PH7.4 4.41 mg/dL Low 4.61-5.17 [facility] Comment on above: Performed By: #### E DLYT #### [facility] [address] [place] [address] Ionized Calcium 4.50 mg/dL Low 4.61-5.17 [facility] Comment on above: Performed By: #### E DLYT #### [facility] [address] [place], [place] [address] pH (Bld) 7.361 [pH] Normal 7.320-7.430 [facility] Comment on above: Performed By: #### E DLYT #### [facility] [address] [place] [address] MRSA Screenon 08-28-2019 MRSA DNA MAXIMO+probe Ql (Unsp spec) Test performed at [facility] No MRSA detected. Normal [facility] Comment on above: Performed By: #### E DICG #### [place] [address] Magnesium Bloodon 08-28-2019 Magnesium [Mass/Vol] 1.8 mg/dL Normal 1.7-2.[address] [facility] Comment on above: Performed By: #### E DLYT #### [place] [address] NURSING PROGon 08-28-2019 NURSING PROG HNO ID: [id number] Author: Rebecca (Rn) LIAM Carlos Service: Nursing Author Type: Registered Nurse Type: Nursing Progress Note Filed: 08/28/2019 5:24 PM Note Text: Nursing Progress Note Patient Name: Carla Blackmon Patient Location: [id number]/[facility] __ Daily Note:report called to Katerina patient will transfer to [facility], safety level maintained will continue to monitor This note was completed by: Rebecca Carlos RN [facility] NURSING PROG HNO ID: [id number] Author: Gretchen RodriguesRn) LIAM Patel Service: Nursing Author Type: Registered Nurse Type: Nursing Progress Note Filed: 08/28/2019 10:27 AM Note Text: Nursing Progress: Topic: RESTRAINT NON-VIOLENT PATIENT NAME: Carla Blackmon PATIENT LOCATION: [place] [address]/[place] [address] 20* The patient demonstrates Attempting to Remove Medical Devices Vital to Medical Stability, Impulsive Behavior, Inability to be Redirected, Inability to Retain Information Regarding Safety Directions as evidenced by the following behaviors pulling at ETT , IV lines and bellamy which pose an imminent danger to self or others. The following interventions were attempted but were not effective in protecting the patient's safety: Bed in Low/Locked Position, Call Light Within Reach, Gauze Wrap/Sleeve IV Site, IV/Feeding Bag/Pump Out of Vision, Medications Reviewed, Modify Environment, Modify Equipment, Pad Tubes/Drains, Pain/Discomfort Relief Next, a comprehensive assessment was performed and warranted placing the patient in Soft Bilateral Wrists, the least restrictive restraint needed to protect the patient's safety. Ongoing safety assessments and evaluation for earliest removal of restraints will be performed. DATE: August 28, 2019 TIME: 10:26 AM Gretchen Patel RN [facility] NURSING PROG HNO ID: [id number] Author: Gretchen (Rn) Daniel RN Service: Nursing Author Type: Registered Nurse Type: Nursing Progress Note Filed: 08/28/2019 9:24 AM Note Text: Dr. Suarez notified of temperature 38.4 and heart rate and rhythm, sinus tach. 12 lead EKG obtained , tylenol given. [facility] PLAN OF CAREon 08-28-2019 PLAN OF CARE HNO ID: [id number] Author: Young Curtis (Sales Exhibitor) Service: Pharmacy Author Type: ? Type: Plan of Care Filed: 08/28/2019 2:21 PM Note Text: Attestation signed by Wendy Schneider (Pharmacist) at 08/29/2019 7:14 AM I agree with the med hx obtained by the pharmd candidate. Med list updated per [employer] and patient interview. Patient denied any other rx/otc/herbal products. Summary: Admission Med Rec MEDICATION HISTORY AND MEDICATION RECONCILIATION Patient Name:Daya Blackmon : 1960 Source of history:Patient: and Pharmacy records: Medication Nonadherence Identified: No barriers noted The above information represents the best possible medication history: Yes Reconciliation completed? Yes All LINE DANCER medications addressed by LIP Additional comments: -All current prescription medications reconciled from patient's pharmacy were confirmed by the patient, except pt also stated taking Proair and Flonase. -Goes months without using the proair so still had one at home, has been using it 1-2 times daily for the last couple weeks for allergies/SOB. -Flonase is prescribed to patients family member, but the patient is the one who uses it twice daily for allergies. -Confirmed OTC medications with patient (benedryl, zyrtec, melatonin, ASA) -Takes ASA 325 qday because doctor told her to start taking aspirin [id number] Medication List Adjustments: Medications Added: -albuterol HFA (PROAIR HFA) 90 mcg/actuation inhaler. Inhale 2 Puffs as instructed twice daily as needed for Wheezing/Shortness of Breath. -aspirin 325 mg tablet. Take 325 mg by mouth once daily. -cetirizine (ZYRTEC) 10 mg tablet. Take 10 mg by mouth once daily. -diphenhydramine HCl (BENADRYL ALLERGY ORAL). Take 1 tablet by mouth daily at bedtime. -fluticasone (FLONASE ALLERGY RELIEF) 50 mcg/actuation nasal spray Use 1 [place] in each nostril twice daily. -levothyroxine (SYNTHROID) 137 mcg tablet. Take 137 mcg by mouth every morning. -melatonin 3 mg tablet. Take 3 mg by mouth daily at bedtime. Medicaitons Removed: N/A Short-Term Medications: N/A Further Clarification Required: N/A Patient is a 30 day readmission: No Patient Interested in Bedside Delivery: No Time Spent Reviewing Patient's Medications: 25 minutes Allergies: ALLERGIES Allergen Reactions - Sulfa (Sulfonamide * Other: See Comments Chest tightness - Penicillin G Unknown Preferred Pharmacy: [facility] [id number] - [place] [address] [address] [facility] [phone] Current LINE DANCER Medications: Prior to Admission medications as of 08/28/19 1416 Medication Sig Last Dose Taking atorvastatin (LIPITOR) 10 mg tablet Take 10 mg by mouth once daily. Yes chlorzoxazone (PARAFON FORTE DSC) 500 mg tablet Take 500 mg by mouth three times daily as needed for Muscle Spasm (Neck pain). Yes DULoxetine (CYMBALTA) 60 mg capsule Take 60 mg by mouth twice daily. Yes hydroCHLOROthiazide (HYDRODIURIL, ESIDRIX) 25 mg tablet Take 25 mg by mouth once daily. Yes metoprolol tartrate, short acting, (LOPRESSOR) 100 mg tablet Take 100 mg by mouth twice daily. Yes montelukast (SINGULAIR) 10 mg tablet Take 10 mg by mouth daily at bedtime. Yes sertraline (ZOLOFT) 100 mg tablet Take 100 mg by mouth every morning. Yes sertraline (ZOLOFT) 50 mg tablet Take 50 mg by mouth every evening. Yes fluticasone (FLONASE ALLERGY RELIEF) 50 mcg/actuation nasal spray Use 1 [place] in each nostril twice daily. Yes albuterol HFA (PROAIR HFA) 90 mcg/actuation inhaler Inhale 2 Puffs as instructed twice daily as needed for Wheezing/Shortness of Breath. Yes diphenhydramine HCl (BENADRYL ALLERGY ORAL) Take 1 tablet by mouth daily at bedtime. Yes melatonin 3 mg tablet Take 3 mg by mouth daily at bedtime. Yes aspirin 325 mg tablet Take 325 mg by mouth once daily. Yes cetirizine (ZYRTEC) 10 mg tablet Take 10 mg by mouth once daily. Yes levothyroxine (SYNTHROID) 137 mcg tablet Take 137 mcg by mouth every morning. Yes Young Curtis (Sales Exhibitor) August 28, 2019 2:02 PM [facility] PLAN OF CARE HNO ID: [id number] Author: Gayla Christensen ([employer]) Service: Pharmacy Author Type: ? Type: Plan of Care Filed: 08/28/2019 1:27 PM Note Text: MEDICAL AUDITOR BEDSIDE DELIVERY SURVEY 1. Patient to use [facility] Bedside Delivery - YES Insurance Information as follows: 2. Insurance card on file - NO 3. Credit card for payment - N/A Patient has no prescription insurance on file. No prescriptions written for pt yet, please call Pharmacy Bedside Delivery at [phone] or [phone] once scripts written and discharge orders placed. Gayla Christensen ([employer]) Normal [facility] PROGRESSon 08-28-2019 PROGRESS HNO ID: [id number] Author: Trip Dietrich Service: Neurology ICU Author Type: Physician Type: Progress Notes Filed: 08/28/2019 4:38 PM Note Text: SERVICE DATE: 08/28/2019 SERVICE TIME: 4:37 PM NEURO ICU PROGRESS NOTE Requesting provider: SICU Re: seizure Discussed recs with patient and SICU team. DATE OF ADMISSION: 08/27/2019 Subjective Ms Blackmon is a 59F with history of minor head injury on who presented yesterday after having a witnessed seizure. CT head shows scattered cortical SAH and in the insular region. She was extubated this AM. She denies remembering what happened yesterday. Per report, she had a generalized tonic clonic seizure. No mention of length of seizure. I spoke with her over the phone. He did not witness the seizure. The witness was their 10 year old grandchild. He did mention that on she fell and hit her head getting into their bed. She was evaluated and cleared. ? Seizure history Onset: 08/27/2019 Descriptions: Generalized tonic clonid Duration: unclear Occurances: 1 Last Seizure: 08/27/2019 Seizure free interval (longest): 1 day Last GTC: 08/27/2019 H/O tongue biting/incontinence: tongue biting Postictal: agitation H/o Status: yes (was intubated 08/26-08/28/2019 H/o injury with seizure: head trauma possibly Home Meds: none, now on keppra Recent changes in meds: none Previously tried meds: none ? RISK FACTORS FOR SEIZURES: 1. Head Trauma (Yes, 07/2019); 2. PROJECT CONTROL MANAGER Infections (No); 3. Family History of Seizures (No); 4. Developmental Delay (No); 5. Febrile Seizures (No); 6. PROJECT CONTROL MANAGER Tumors (No); 7. PROJECT CONTROL MANAGER Vascular Disease (No); 8. Significant Medical History (Yes, breast cancer). ? Hospital Course: 08/26: admitted to NSICU under trauma 08/27: extubated. Objective BP 91/63 Pulse 104 Temp (!) 35.8 ?C (96.4 ?F) (Temporal) Resp 25 Ht 160 cm (5' 3) Wt 67 kg (147 lb 11.3 oz) SpO2 99% BMI 26.17 kg/m? Weight change: Neuro: GCS: Total: 15 CRANIAL NERVES: Normal mood and affect. CNII-XII grossly intact. MOTOR STRENGTH: Upper and lower extremity 5/5 bilaterally SENSATION: Intact light touch COORDINATION: Finger-to- nose-finger intact bilaterally CV: RRR Pulm: ctab GI/: soft, nontender Skin/Extremities: Edema- No Peripheral pulses- Present all extremities Wounds/Drsgs- No Breakdown- No Diagnostic tests reviewed for today's visit: Most recent labs and imaging results. EEG: Classification ? Abnormal III (10-20 Scalp Electrodes, Anterior temporal electrodes, ? CT-compatible electrodes, Stupor) ? 1 ? ?Continuous Slow, Generalized and regional Left temporo-parietal Impression ? Continuous video-EEG monitoring was reviewed from 4 on 08/27/19 until ? 0444 on 08/28/19 and suggestive of a cerebral dysfunction in the left ? temporo-parietal region in the setting of a moderate diffuse ? encephalopathy. No epileptiform discharges or EEG seizures were seen ? during this recording. CTH: IMPRESSION: 1. ?Small regions of parenchymal contusion again noted along the anterior tip of the left temporal lobe and within the posterior left parietal lobe. 2. ?Minimal persistent subarachnoid hemorrhage within the left sylvian fissure which is much improved. Lines, Drains, and Airways Line Peripheral 08/27/19 Left Forearm 22 Gauge 1 day Peripheral 08/27/19 Short Right Antecubital 18 Gauge 1 day ICU Checklist --------- --- VTE Prophylaxis: Assessment AND Plan 59F with new onset seizure in setting of mild TBI. Neurology Seizures (HCC) Continue kera for seizure treatment. We discussed the side effects of the medication. She agrees to take it. I also discussed with her over the phone. Will need to follow up with neurology in 6-8 weeks post discharge to assess seizure status/medication for any adjustment. She will not be able to drive for 6 months if she remains seizure free. Seizure precautions discussed with her. Will obtain CTA while inpatient to ensure no underlying vascular etiology for the SAH other than TBI. Continue with EEG for another 24 hours. Medication and Non-Pharmacologic VTE Prophylaxis/Anticoagul ants 08/27/192029 vte pharmacologic prophylaxis contraindicated ([place]) 08/27/192029 pneumatic compression stockings ([place]) 08/27/192029 activity - mobilize patient ([place]) VTE Prophylaxis: Contraindicated SAH Plan of care discussed with: Provider, RN, Patient SIGNATURE: Trip Dietrich DO PATIENT NAME: Carla Blackmon DATE: August 28, 2019 TIME: 4:37 PM PAGER/CONTACT #: NSICU === STAFF COORDINATION OF CRITICAL CARE [facility] Staff Physician note of personal involvement in Care The patient is critically ill because of imminent risk of acute brain damage and continues to require intensive support and observation. This patient has a high probability of sudden, clinically significant deterioration, which requires the highest level of physician preparedness to intervene urgently. I managed/supervized life or organ supporting interventions that required frequent physician assessment. I devoted my full attention to the direct care of this patient for the amount of time indicated below. Time I spent with family or surrogate(s) is included only if the patient was incapable of providing the necessary information or participating in medical decision making. Time devoted to teaching or to any procedures I billed separately is not included. CRITICAL CARE: I personally spent 35 minutes of critical care time involved in the care of this patient. ==== Normal [facility] PROGRESS HNO ID: [id number] Author: France Angulo Service: Neurosurgery Author Type: Nurse Practitioner Type: Progress Notes Filed: 08/28/2019 12:14 PM Note Text: PROGRESS NOTE NEUROSURGERY SERVICE DATE: 08/28/2019 SERVICE TIME: 0820 Subjective INTERVAL HPI Pt remains intubated but is very awake and alert, MURPHY, mouths words. Anxious Current Facility-Administered Medications Medication Dose Route Frequency - potassium chloride ER 20-40 mEq tab(s) (K-DUR, KLOR-CON) 20-40 mEq ORAL/FEEDING TUBE PRN Or - potassium chloride iv piggyback 20 mEq/100 mL 20 mEq INTRAVENOUS PRN - magnesium sulfate in water 2 g in sterile water 50 ml 2 g INTRAVENOUS PRN - sodium phosphate 45 mmol in NaCl 0.9% 250 mL 45 mmol INTRAVENOUS PRN - calcium gluconate 4 g in NaCl 0.9% 250 mL 4 g INTRAVENOUS PRN - NaCl 0.9% iv infusion 75 mL/hr INTRAVENOUS CONTINUOUS - potassium phosphate 45 mmol in NaCl 0.9% 250 mL 45 mmol INTRAVENOUS ONCE - acetaminophen 650 mg tab(s) (TYLENOL) 650 mg ORAL QID - magnesium sulfate in sterile water 4 g iv piggyback 4 g INTRAVENOUS ONCE - levETIRAcetam 1,000 mg tab(s) (KEPPRA) 1,000 mg ORAL BID - oxyCODONE IR 5 mg tab(s) (ROXICODONE) 5 mg ORAL q 6 H PRN - metoprolol tartrate (short acting) 50 mg tab(s) (LOPRESSOR) 50 mg ORAL q 8 H Objective Physical Exam Performed: General - anxious intubated Resp - even unlabored ETT to vent GI - abdomen soft NT, ND Skin - no lesions, abrasions or bruises Neuro - Alert +O x3, PERRL, makes eye contact, MURPHY, strength 4/5 BUE and BLE and equal VITAL SIGNS 24 HOUR REVIEW: Patient Vitals for the past 24 hrs: BP Temp Temp src Pulse Resp SpO2 Height Weight 08/28/19 1130 123/81 (!) 38.5 ?C (101.3 ?F) ? (!) 128 21 98 % ? ? 08/28/19 1100 123/81 (!) 38.5 ?C (101.3 ?F) ? (!) 140 24 98 % ? ? 08/28/19 1055 ? (!) 38.3 ?C (100.9 ?F) ? (!) 124 17 98 % ? ? 08/28/19 1000 120/77 (!) 39 ?C (102.2 ?F) ? (!) 139 17 100 % ? ? 08/28/19 0900 117/75 (!) 38.7 ?C (101.7 ?F) ? (!) 143 22 99 % ? ? 08/28/19 0800 97/64 (!) 38.2 ?C (100.8 ?F) Axillary 120 23 95 % ? ? 08/28/19 0700 99/64 37.9 ?C (100.2 ?F) ? 111 19 96 % ? ? 08/28/19 0600 93/66 37.7 ?C (99.9 ?F) Bellamy Therm 107 16 96 % ? ? 08/28/19 0500 119/79 37.8 ?C (100 ?F) ? 103 14 99 % ? ? 08/28/19 0400 110/76 37.5 ?C (99.5 ?F) Bellamy Therm 106 18 100 % ? ? 08/28/19 0300 108/68 37.3 ?C (99.1 ?F) ? 104 19 100 % ? ? 08/28/19 0200 111/71 37.2 ?C (99 ?F) Bellamy Therm 91 18 99 % ? ? 08/28/19 0100 94/63 37 ?C (98.6 ?F) ? 86 14 100 % ? ? 08/28/19 0000 94/64 37 ?C (98.6 ?F) ? 85 14 100 % ? ? 08/27/19 2300 90/65 37 ?C (98.6 ?F) ? 88 14 100 % ? ? 08/27/19 2200 91/66 36.9 ?C (98.4 ?F) ? 89 15 100 % ? ? 08/27/19 2100 128/94 36.9 ?C (98.4 ?F) ? 92 13 100 % ? ? 06/10/20 2000 112/82 36.9 ?C (98.4 ?F) Bellamy Therm 112 13 100 % 160 cm (5' 3) 67 kg (147 lb 11.3 oz) 08/27/19 1950 111/70 ? ? 120 21 100 % ? ? 08/27/19 1930 111/86 ? ? 87 14 100 % ? ? 08/27/19 1900 108/79 ? ? (!) 93 16 99 % ? ? 08/27/19 1830 107/84 ? ? 89 17 100 % ? ? 08/27/19 1805 109/79 ? ? (!) 92 15 100 % ? ? 08/27/19 1800 108/84 ? ? (!) 95 15 100 % ? ? 08/27/19 1759 ? 36.1 ?C (97 ?F) Axillary ? 08/27/19 175 113/83 ? ? (!) 97 15 97 % ? ? 08/27/19 1735 116/91 ? ? (!) 102 16 95 % ? ? 08/27/19 1730 118/76 ? ? (!) 112 17 96 % ? ? 08/27/19 1726 ? ? ? (!) 95 15 96 % ? ? 08/27/19 1725 102/84 ? ? (!) 92 15 ? ? ? 08/27/19 1720 96/79 ? ? (!) 91 16 ? ? ? 08/27/19 1707 103/75 ? ? (!) 94 16 95 % ? ? 08/27/19 1700 110/82 ? ? (!) 113 16 ? ? ? 08/27/19 1651 ? ? ? (!) 118 16 96 % ? ? 08/27/19 1645 114/92 ? ? (!) 114 16 ? ? ? 08/27/19 1641 116/84 ? ? (!) 115 18 ? ? ? 08/27/19 1633 ? 75.5 kg (166 lb 7.2 oz) 08/27/19 1630 113/82 ? ? (!) 97 15 99 % ? ? 08/27/19 1619 ? ? ? (!) 107 18 100 % ? ? 08/27/19 1615 105/81 ? ? (!) 92 18 100 % ? ? 08/27/19 1613 ? 100 % ? ? 08/27/19 1608 125/97 ? ? (!) 92 ? 08/27/19 1604 109/84 ? ? (!) 99 ? 100 % ? ? 08/27/19 1604 122/93 ? ? (!) 99 ? 100 % ? ? 08/27/19 1601 ? ? ? (!) 114 ? 100 % ? ? 08/27/19 1558 ? ? ? (!) 100 ? 08/27/19 1555 101/70 ? 100 % ? ? 08/27/19 1555 ? ? ? (!) 95 14 ? ? ? 08/27/19 1552 94/62 ? DATA: Diagnostic tests reviewed for today's visit: CT brain - images and report reviewed - 'Interval decrease in conspicuity of minimal subarachnoid hemorrhage and/or surface contusions involving the left temporal-opercular and left parietal regions. No new hemorrhage in the interval. No new intracranial abnormality. ' Assessment/Plan Active Problems: Subarachnoid hemorrhage (HCC) POA: Yes Assessment AND Plan: 59 yo female s/p fall with ICH Neuro stable and improved No neurosurgical indication Med mgmt per primary service No blood thinners Keppra for seizures Will sign off Fall POA: Yes Assessment AND Plan: Acute respiratory failure with hypoxia (HCC) POA: Yes Assessment AND Plan: Seizures (HCC) POA: Yes Assessment AND Plan: TBI (traumatic brain injury) (HCC) POA: Yes Assessment AND Plan: Resolved Problems: * No resolved hospital problems. * Medication and Non-Pharmacologic VTE Prophylaxis/Anticoagul ants 08/27/192029 vte pharmacologic prophylaxis contraindicated ([place]) 08/27/192029 pneumatic compression stockings ([place]) 08/27/192029 activity - mobilize patient ([place]) VTE Prophylaxis: VTE prophylaxis appropriate SIGNATURE: France Angulo APRN.CNP PATIENT NAME: Carla Blackmon DATE: August 28, 2019 TIME: 11:51 AM PAGER/CONTACT #: [phone] [facility] PROGRESS HNO ID: [id number] Author: Don Lizama Service: Trauma Author Type: Physician Type: Progress Notes Filed: 08/28/2019 11:08 AM Note Text: Trauma Progress Note SERVICE DATE: 08/28/2019 SUBJECTIVE: No acute events. Pt on 30 of propofol but opening eyes and following commands. Currently intubated. OBJECTIVE: Vitals: Temp (24hrs), Av.1 ?C (98.8 ?F), Min:36.1 ?C (97 ?F), Max:37.8 ?C (100 ?F) BP 93/66 Pulse 107 Temp 37.7 ?C (99.9 ?F) (Bellamy Thermistor) Resp 16 Ht 160 cm (5' 3) Wt 67 kg (147 lb 11.3 oz) SpO2 96% BMI 26.17 kg/m? O2 Therapy: Ventilator IANDO: Date 08/27/19699 - 08/28/1965808/28/19699 - 08/29/19 0659 Shift 8430-4861 8625-8859 5727-3527 24 Hour Total 0427-4395 8531-6362 4377-8143 24 Hour Total INTAKE IV 608.3 686.7 1295 Volume (mL) 67.8 113.6 181.4 Volume (mL) 27.5 30.1 57.6 Volume (mL) (NaCl 0.9% iv infusion) 413 543 956 Volume (mL) (levETIRAcetam iv piggyback 1,000 mg in NaCl (iso-osmotic) 100 mL (KEPPRA)) 100 100 Shift Total 608.3 686.7 1295 OUTPUT Urine 3876 690 3067 Void (ml) 800 800 Output ( Indwelling Urinary Catheter 08/27/19 Admission to Hospital [facility] 16 Fr) 200 625 825 Shift Total 4390 246 0304 Weight (kg) 67 67 67 67 67 67 67 MEDICATIONS Current Facility-Administered Medications Medication Dose Route Frequency - potassium phosphate 45 mmol in NaCl 0.9% 250 mL 45 mmol INTRAVENOUS ONCE - calcium gluconate 4 g in NaCl 0.9% 250 mL 4 g INTRAVENOUS ONCE - fentaNYL 20 mcg/mL iv infusion in NaCl 0.9% 100 mL 25-250 mcg/hr INTRAVENOUS CONTINUOUS - potassium chloride ER 20-40 mEq tab(s) (K-DUR, KLOR-CON) 20-40 mEq ORAL/FEEDING TUBE PRN Or - potassium chloride iv piggyback 20 mEq/100 mL 20 mEq INTRAVENOUS PRN - magnesium sulfate in water 2 g in sterile water 50 ml 2 g INTRAVENOUS PRN - sodium phosphate 45 mmol in NaCl 0.9% 250 mL 45 mmol INTRAVENOUS PRN - calcium gluconate 4 g in NaCl 0.9% 250 mL 4 g INTRAVENOUS PRN - levETIRAcetam iv piggyback 1,000 mg in NaCl (iso-osmotic) 100 mL (KEPPRA) 1,000 mg INTRAVENOUS BID - NaCl 0.9% iv infusion 75 mL/hr INTRAVENOUS CONTINUOUS - famotidine 20 mg injection (PEPCID) 20 mg INTRAVENOUS BID - propofol infusion (DIPRIVAN) 5-50 mcg/kg/min INTRAVENOUS CONTINUOUS Labs: Recent Labs 08/28/19 0500 08/27/19 1601 08/27/19 1558 08/27/19 1548 NA 130* -- -- 127* K 3.2* -- -- 4.1 CHLOR 97 -- -- 95* CO2 21* -- -- 24 BUN 8 -- -- 12 CREAT 0.66 -- -- 0.87 GLUC 94 -- -- 108* ANION 12 -- -- 8* CA 8.5 -- -- 8.2* MG 1.8 -- -- -- P 2.5* -- -- -- ALB -- -- -- 3.8* AST -- -- -- 21 ALT -- -- -- 15 ALKPHOS -- -- -- 159* TBILI -- -- -- 0.4 WBC 18.08* -- -- 24.47* HB 11.1* -- -- 10.7* HCT 33.4* -- -- 32.1* PLT 483* -- -- 498* LACT -- 1.9 -- -- INR -- -- -- 0.95 PCO2 -- -- 48.4 -- PO2 -- -- 33.0 -- BE -- -- -2.0 -- HCO3 -- -- 23.8 -- PHYSICAL EXAM: Genl: No acute distress. Resting comfortably. Opens eyes, follows commands Head/Face: Normocephalic. Atraumatic. Eyes: EOMI. Sclera not icteric, not injected Neck: No mid-line masses. C-spine non-tender. Back: T AND L Spine non-tender, no step-offs or deformities noted. No flank tenderness. Resp: Lung sounds are clear bilat. No wheezes. No rales. Breathing is non-labored on vent CVS: RRR as above; 2+ pulses at RA, DP, PT bilat. GI: Abdomen is soft, non-tender, not distended. Bowel sounds normoactive. No peritonitis. MSK: Extremities without clubbing, cyanosis, edema. Normal ROM x 4. Skin: Warm and dry. Not jaundiced. Neuro: Strength and sensation normal. MURPHY. ASSESSMENT AND PLAN: Active Hospital Problems Diagnosis Date Noted - Fall 08/28/2019 - Acute respiratory failure with hypoxia ([facility]) 08/28/2019 - Seizures ([facility]) 08/28/2019 - Elevated troponin I level 08/28/2019 - TBI (traumatic brain injury) ([facility]) 08/28/2019 - Hyponatremia 08/28/2019 - Hypokalemia 08/28/2019 - Hypochloremia 08/28/2019 - Leukocytosis 08/28/2019 - Hypophosphatemia 08/28/2019 - Subarachnoid hemorrhage ([facility]) 08/27/2019 59 year old female s/p fall Imaging performed: 1. CXR 2. PXR 3. CTH/N Traumatic Injuries: 1. ICH Operations/Procedures: 1. none Care Plan: 1. Care per SICU 2. NPO 3. Neurochecks 4. Intubated and sedated 5. Maintain C collar 6. Neurosurgery consult 7. cEEG 8. Keppra 9. Pain control 10. Repeat head CT: pending this am PPX: 1. DVT: held 2. Ulcer: yes Consulted Services and Recommendations: 1. nsg 2. SICU Dispo Plannin. PT/OT recs NA. Case management following. Incidentals: 1. tbd Follow Up Needs: 1. tbd Staff Trauma Surgeon: Dr. Lizama Trauma Service Pager: For questions or concerns Mon-Fri 6a-5p please page [phone]. After 5pm and on Weekends and Holidays, please page [phone] if in ICU or [phone] if on RNF. SIGNATURE: Kadi Kate MD PATIENT NAME: Carla Blackmon DATE: August 28, 2019 TIME: 6:53 AM Pager: [phone] (text, page, or call) Attending Note I personally saw and examined the patient. I reviewed the resident's note. I agree with the resident's assessment and plan unless otherwise noted. As above Extubated Talking but voice is hoarse Follows command No new seizures On Keppra No neck pain or tenderness CT of neck neg Repeat head CT with less SAH Plan: D/C c-collar Diet C-EEG monitoring Neuro checks SCD [facility] Signature: Don Lizama MD Date: 08/28/2019 Time: 11:[address] [facility] Phosphorous Bloodon 08-28-19 20 Phosphate [Mass/Vol] 2.5 mg/dL Low 2.7-4.[address] [facility] Comment on above: Performed By: #### E DLYT #### [place] [address] THERAPY NTon 08-28-2019 THERAPY NT HNO ID: [id number] Author: Angela (Pt) Sameer Service: Physical Therapy Author Type: Physical Therapist Type: Therapy (PT/OT/Speech/Resp) Filed: 08/28/2019 3:11 PM Note Text: Physical Therapy Evaluation SERVICE DATE: 08/28/2019 SERVICE TIME: 1346 to 1414 ROOM: [place] [address] Recommended Discharge Disposition: Home PT Anticipated Discharge Needs: Physical Assist at Home Physical Assist at Home for: Cleaning;Laundry;Meals ;Stairs;Safety PT Recommendations to Nursing: Transfer to/from chair;OOB for Meals;With assist of 1 person Device: Hand Held Assist PT 6 Clicks Score: 18 Precautions/Activity Restrictions: Fall Risk ASSESSMENT : This patient was admitted for transfer from [facility] for seizure and fall, hitting head, has the past medical history of double breast mastectomy, falls impacting current functional level, as well as the social factors complicating the discharge of multiple stairs to complete at home. This patient is slightly below baseline functioning of able to ambulate independently without device and will benefit from continued skilled therapy in the hospital for treatment of the following body systems/impairments: musculoskeletal, neuromuscular (gait, transfers, bed mobility, balance, endurance, safety and strengthening). Patient Disposition at Start of Session: Supine in Bed;Call Simpson in Reach Patient Disposition at End of Session: Supine in Bed;Call Simpson in Reach Tolerated Full Session Physical Therapy Problem List: Safety Deficits;Decreased Activity Tolerance;Decreased Range Of Motion;Decreased Strength;Functional Mobility Impairment;Balance Impaired Patient /Caregiver Goals: Go Home Goals for Plan of Care: Rolling with: Stand By Assistance Transfer supine to/from sit with: Stand By Assistance Transfer sit to/from stand with: Stand By Assistance Ambulate with: Stand By Assistance Distance: 50ft Device: No Device Transfer: complete bed to chair transfer with standby assistance Rehab Potential: Good PLAN: Treatment Frequency (times per week): 5(2-5) Current admission Treatment Interventions: Education;Strengthenin g;Functional Mobility Training;Balance Training;Neuromuscular Re-education Plan of Care developed with: Patient TREATMENT INTERVENTIONS: Therapy Diagnosis: Difficulty walking-musculoskeleta l Interventions Provided: Evaluation;Therapeutic Activity (35579) $ Evaluation-Moderate (57075) Billed Units: 1 unit History and examination of body systems see assessment section above. This patient?s clinical presentation is evolving. The patient required a moderate complexity evaluation. Therapeutic Activity (09861) Treatment Minutes: 14 1 unit Skilled Intervention(s): Instructed patient in supine to sit pushing with upper extremities to sit up Instructed patient in sit to supine using safe, effective technique Instruction in sit to stand technique with proper hand placement and body positioning at edge of bed/chair. Once standing cueing to put hands on the walker frame to ensure safety with first time standing. Cues to take some side steps toward the HOB. Instruction in stand to sit technique with lower extremities touching chair/bed and reaching back for surface Total Timed Code Treatment Minutes: 14 Total Treatment Time (minutes): 28 SUBJECTIVE: Current Hospital Course: Chart reviewed; Patient presents from OSH due to seizure and fall hitting her head. Tomy gutierrez L temporal opercular and L parietal SAH. Non-surgical at this itmd Reason for Physical Therapy Consult : eval and treat Relevant Past Medical History: double breast mastectomy, falls Patient Report: Patient continually stating during session, I dont have abdominal muscles, I just fall over when im sitting. Home Environment Patient Lives With: Spouse Assistance Available: ruffling hemmer automatic( works) Entry To Home: Stairs Number Of Stairs Into Home: 3 Number Of Stairs To Bed/Bath: full flight Stairs to Bed/Bath with: Unilateral Rail Tub/Shower Type: tub Equipment Owned: (no equipment) Prior Functional Level: Within Functional Limits Prior Functional Level Comments: patient reports typically able to ambulate independently without device OBJECTIVE: Range of Motion: WFL Strength: WFL CURRENT FUNCTIONAL STATUS: Current Functional Mobility Assist Level Additional Information Rolling Minimal Assistance Supine to Sit Minimal Assistance Sit to Supine Minimal Assistance Sit to Stand Minimal Assistance Stand to Sit Minimal Assistance Gait Minimal Assistance Gait Device: Wheeled Walker Gait Distance (feet): 3 side steps Balance: Dynamic Sitting;Static Sitting;Static Standing;Dynamic Standing Static Sitting Balance: Good Patient able to maintain balance without handhold support, limited postural sway Dynamic Sitting Balance: Good Patient accepts moderate challenge, able to maintain balance while picking up object off floor Static Standing Balance: Fair Patient able to maintain balance with handhold support, may require occasional minimal assistance Dynamic Standing Balance: Fair Patient accepts minimal challenge, able to maintain balance while turning head/trunk JH-HLM: 5: Standing (1 or more minutes) Please see discipline specific clinical documentation flowsheet for complete details for this therapy evaluation/treatment. SIGNATURE: Angela Estrella PT PATIENT NAME: Carla Blackmon DATE: August 28, 2019 TIME: 3:[address] [facility] Troponin T, High Sens.on Troponin T, High Sens. 292 ng/L Critically high 0-11 [facility] Comment on above: Result Comment: Lia ents taking a biotin dose of up to 5 mg/day should refrain from taking biotin for 4 hours prior to sample collection. Patients taking a biotin dose of 5 to 10 mg/day should refrain from taking biotin for 8 hours prior to sample collection. Patients taking a biotin dose > 10 mg/day should consult with their physician or the laboratory prior to having a sample taken. Clinicians should consider biotin interference as a source of error, when clinically suspicious of the laboratory result. Performed By: #### E DLYT #### [facility] [address] [place] [address] Troponin T, High Sens. 381 ng/L Critically high 0-11 [facility] Comment on above: Result Comment: Lia ents taking a biotin dose of up to 5 mg/day should refrain from taking biotin for 4 hours prior to sample collection. Patients taking a biotin dose of 5 to 10 mg/day should refrain from taking biotin for 8 hours prior to sample collection. Patients taking a biotin dose > 10 mg/day should consult with their physician or the laboratory prior to having a sample taken. Clinicians should consider biotin interference as a source of error, when clinically suspicious of the laboratory result. Performed By: #### E DLYT #### [facility] [address] [place], [place] [address] XR CHEST 1V FRONTALon 2019 XR CHEST 1V FRONTAL * * *Final Report* * * DATE OF EXAM: Aug 28 2019 7:07AM AKX 5290 - XR CHEST 1V FRONTAL / PROCEDURE REASON: Evaluate tube, line or lead position * * * * Physician Interpretation * * * * EXAMINATION: CHEST RADIOGRAPH (SINGLE VIEW AP OR PA) CLINICAL HISTORY: Evaluate tube, line or lead position MQ: XC1_5 Comparison: 08/27/2019 RESULT: Lines, tubes, and devices: Stable ETT and NGT. Lungs and pleura: No consolidation. No lung mass. No pleural effusion. Cardiomediastinal silhouette: Normal cardiomediastinal silhouette. Other: . IMPRESSION: No acute radiographic abnormality. Life support tubes are stable. Sugar Grinder: [id number] Transcribe Date/Time: Aug 28 2019 7:27A Dictated by : DAGOBERTO MAYNARD MD This examination was interpreted and the report reviewed and electronically signed by: DAGOBERTO MAYNARD MD on Aug 28 2019 7:29AM EST [facility] ALLIED HEALTHon 08-27-2019 ALLIED HEALTH HNO ID: [id number] Author: Fernanda Cedeno (Chaplain) Service: ? Author Type: Contact Finger Assembler Type: Allied Health Filed: 08/27/2019 4:34 PM Note Text: SPIRITUAL CARE PROGRESS NOTE SERVICE DATE: 08/27/2019 SERVICE TIME: 4:33pm Contact Finger Assembler page: I responded to page patient being assisted by staff. No family present. To contact the Spiritual Care Department: Please call [phone]. SIGNATURE: Chaplain Morales PATIENT NAME: Carla Blackmon DATE: August 27, 2019 TIME: 4:33 PM PAGER/CONTACT #: [phone] [facility] Acetaminophenon 08-27-2019 Acetaminophen [Mass/Vol] <5 Low 10-30 [facility] Comment on above: Result Comment: Toxi c >150 ug/mL 4 hours post ingestion. The Jem Vidal nomogram can be used to estimate the probability of hepatotoxicity via the relationship of plasma acetaminophen concentration to the post ingestion interval. (Pili. Pediatrics. 1975. 55:871 to 876 and Jem et al. Arch Gear Repair Supervisor Med. 1981. 141:380 to 385). Reference ranges and high/low indicator flags are provided as general guidelines only. The treating physician must determine appropriate target levels/dosing based on the specific clinical situation. Performed By: #### E DLAG #### [place] [address] Alcohol, Serumon 08-27-2019 Alcohol, Serum <11.0 Normal < 11 [facility] Comment on above: Performed By: #### A LCO3 #### [place] [address] Amylaseon 08-27-2019 Amylase [Catalytic activity/Vol] 69 U/L Normal 30-104 [facility] Comment on above: Performed By: #### E DLAG #### [place] [address] CASE MANAGEMon 08-27-2019 CASE MANAGEM HNO ID: [id number] Author: Graham Howe (Sw) Service: Care Management Author Type: Sausage Cutter Type: Care Mgt Progress Note Filed: 08/27/2019 10:03 PM Note Text: CARE MANAGEMENT PROGRESS NOTE SERVICE DATE: 08/27/2019 SERVICE TIME: 4:00 PM LOS: 0 days Trauma I Fall The patient was transferred from [facility] via [facility]. EMS reports family was at the other hospital and in route. Social work awaits family. SIGNATURE: BRITT Payne PATIENT NAME: Carla Blackmon DATE: August 27, 2019 TIME: 10:01 PM PAGER/CONTACT #: [phone] [facility] CASE MGT INIT ASSESon 2019 CASE MGT INIT ASS HNO ID: [id number] Author: Graham Howe (Sw) Service: Care Management Author Type: Sausage Cutter Type: Care Mgt Initial Assessment Filed: 08/27/2019 9:59 PM Note Text: CARE MANAGEMENT: ASSESSMENT AND DISCHARGE PLAN SERVICE DATE: August 27, 2019 SERVICE TIME: 5:00 Pm PRIMARY CARE PHYSICIAN: Edie Crowder NP ADMISSION STATUS: Inpatient Needs Prior to Discharge: To Be Determined;OT/PT Evaluation;Facility or Agency Choices MEDICAL: N/A Patient/Build Master Stated Goals: To have reduction in symptoms;To return home to life as it was;To improve my functional status(per patients spouse Neymar Aspenrose) Health Issues Impacting Discharge Plan: Newly diagnosed Newly Diagnosed: Subarachnoid hemorrhage (HCC) Last Discharge Date: N/A Is this Within the Past 30 days? Last discharge within 30 days: No Advance Directive: Health LiteracyHow often do you need to have someone help you when you read instructions, pamphlets, or other written material from your doctor or pharmacy? : 1 - Never(per patients spouse Neymar Sears) How confident are you filling out medical forms by yourself?: 1 - Extremely(per patients spouse Neymar Sears) If Patient scores > 3 on either question, the following interventions were put into place:: Use of plain language and active listening with Patient and family;Teach back methods employed to ensure comprehension;Patient did not score > 3 on either question.;Gave Patient the opportunity to ask questions Baseline Mental Status Prior to this Illness what was the patient's Baseline Mental Status?: Alert AND Oriented Prior to this illness, has anyone described the patient having any of the following behaviors?: Not Applicable Relationship of the informant to the patient:: Spouse Name of Informant: : Neymar Jenkins Functional Status: Independent Does Patient Currently Receive Any Community Services or Home Care?: None(per patients spouse Neymar Sears) Equipment Prior to Admission: None(per patients spouse Neymar Louiserose) SOCIAL: Living Arrangements: Home Lives With: Spouse Financial Resources: Unemployed(attempting to get disability)Primary Contact: Extended Emergency Contact Information Primary Emergency Contact: Gregory Blackmon Address: [address] [place] [id number] Relation: Spouse Supportive Patient Contact:: Yes Contact Resources: Family Family Name/Phone: Mukesh Blackmon -spouse ([phone]) Social Needs Food insecurity Worry: Never true Inability: Never true Resources Needed: No Social Needs Financial resource strain: Not hard at all Social Needs Transportation needs Medical: No Non-medical: No Caregiver AssessmentCaregiver is ready, willing and able to meet the patient's needs as recommended by the inter-professional team:: Yes Does the patient have an acute stroke diagnosis, or has the patient had a stroke during this admission?: Yes Patient's transition needs and plan for meeting these needs: Home care vs. SNF vs. LTAC pending PT/OT Evaulation Patient's perception of need for this admission: Unable to participate Medication Adherance I am convinced of the importance of my prescription medication: 0 - Agree Completely(per patients spouse Neymar Sears) I worry that my prescription medication will do more harm than good to me : 0 - Disagree Completely(per patients spouse Neymar Sears) I feel financially burdened by my [id number] expenses for my prescription medication:: 0 - Disagree Completely(per patients spouse Neymar Sears) Risk Score: 0 Patient is categorized as: Low risk < 2 Med Adherance Assessement not completed due to: ICU - Unable to communicate Are you interested in bedside delivery of your medications? Yes Is Patient Psychosocially Complex?: No ASSESSMENT AND PLAN: Medical Needs: Medical Needs: Stroke/Cognitive defects Psychosocial Needs: Psychosocial Needs: None FREEDOM OF CHOICE EXPLAINED: [place] of Choice Given: No Reason Not Given: Unable to complete with this assessment - revisit POTENTIAL TRANSITION PLANS To Be Determined;[facility] Facility/Intermediate Care Facility;[facility] The patient spouse reports that the patient has been through breast cancer twice (radiation and chemo) and on the second time she had mastectomy then reconstruction surgery. The patients spouse reports that the patient is on his health insurance and she is strong woman. The patients spouse Renu Blackmon reports that the patient has applied for disability but has been denied and drives to appointments. The spouse reports that the patient is independent and uses no DME. They live in two [facility] and use [facility] ([address] [place] [id number]) as there pharmacy. Social work offered support ans will follow appropriately. SIGNATURE: BRITT Payne PATIENT NAME: Carla Blackmon DATE: August 27, 2019 TIME: 9:45 PM PAGER/CONTACT #: [phone] [facility] CONSULTon 08-27-2019 CONSULT HNO ID: [id number] Author: France Angulo Service: Neurosurgery Author Type: Nurse Practitioner Type: Consults Filed: 08/27/2019 5:15 PM Note Text: Attestation signed by Juan Green at 08/27/2019 5:44 PM Attending addendum: The patient is a 59-year-old female status post fall followed by seizures. I am unable to review the CT scan from the outside hospital given the technical issues encountered by the radiology department and uploading her images. However, the report does not demonstrate any significant concern for a surgical lesion. We will obtain a stat head CT to reassess her contusion that was noted on the outside hospital report. If this is stable, this will likely be managed medically and will not require surgical intervention. CONSULT: Neurosurgery SERVICE SERVICE DATE: 08/27/2019 SERVICE TIME: 4:47 PM patient seen as Level one trauama in ER REASON FOR CONSULT: contusion hemorrhagic REQUESTING PHYSICIAN: trauma PRIMARY CARE PHYSICIAN: No primary care provider on file. Chief complaint - seizures Subjective Ms. Blackmon is a 59 year old female transferred from [place] as Level one trauma for hemorrhagic contusion. Pt is intubated - all information is obtained from notes from OSH, trauma team, and EMT at bedside. Pt fell hit her head Memorial day was evaluated at OSH and discharged. Today pt had several seizures, went to [facility] ER and was intubated. Pt was given Keppra prior to arrival at [facility]. No family at bedside to assist with questions and exam. Care Everywhere chart review - no noted blood thinners on med list No past medical history on file. No past surgical history on file. No family history on file. Social History Tobacco Use - Smoking status: Not on file Substance Use Topics - Alcohol use: Not on file - Drug use: Not on file (Not in a hospital admission) Current Facility-Administered Medications Medication Dose Route Frequency - fentaNYL 20 mcg/mL iv infusion in NaCl 0.9% 100 mL 25-250 mcg/hr INTRAVENOUS CONTINUOUS - NaCl 0.9% iv infusion 75 mL/hr INTRAVENOUS CONTINUOUS Allergies As of Date: 08/27/2019 Allergen Noted Reaction PENICILLIN G 06/08/2010 Unknown Fully Assessed 08/27/2019 COMPLETE REVIEW OF SYSTEMS: Unable to obtain d/t intubation Objective PHYSICAL EXAM: Physical Exam Performed: General - intubated Resp - even unlabored, ETT in place GI - abdomen soft NT, ND Skin -lac to posterior head Neuro - sedated but arousable to name, opens eyes, PERRL, makes eye contact, MURPHY BP 114/92 Pulse 114 Resp 16 Wt 166 lb 7.2 oz (75.5kg) SpO2 99% O2 Therapy: Ventilator, %FIO2: 60 DATA: Diagnostic tests reviewed for today's visit: CT brain report only images to be loaded from OSH - but tech in file room having difficutly -left posterior front/temp Hemorrhagic contusion 1.7x1.4cm, possible small SAH left sylvian fissue, no edema, no shift Impression/Recommendat ions Active Problems: 59 yo female s/p fall and seizures with hemorrhagic contusion Since CT brain images are unable to be uploaded (spoke with tech in file room) will obtain STAT CT brain for most recent images to be review Neurosurgical plan pending image review - however unlikely surgical bleed Admit to ICU trauma service BP control Neuro checks keppra Med mgmt per primary service D/w Trauma service and Dr Lizama d/w Dr Green * No resolved hospital problems. * SIGNATURE: France Angulo APRN.CNP PATIENT NAME: Carla Blackmon DATE: August 27, 2019 TIME: 4:46 PM PAGER: [phone] [facility] CONSULT HNO ID: [id number] Author: Libia Navarro Service: Critical Care Author Type: Physician Type: Consults Filed: 08/29/2019 11:03 AM Note Text: CONSULT: SICU SURGERY SERVICE SERVICE DATE: 08/27/2019 SERVICE TIME: 4:39 PM REASON FOR CONSULT: SAH REQUESTING PHYSICIAN: ED PRIMARY CARE PHYSICIAN: No primary care provider on file. Subjective 59-year-old female who presented as a level I trauma to [facility]. GCS 10 T upon arrival. She was intubated at an outside facility for combativeness. Per the patient report, she felt that her head on . She was evaluated and cleared of injury. She had multiple witnessed seizures today and received antiepileptics prior to arrival. She had been scanned with a CT of her head and neck in an outside facility. She was found to have an intracranial hemorrhage. Transfer was initiated to the level I Trauma Ctr. She had bouts of hypotension prior to arrival for which she was placed on Levophed. Pressure normalized in the emergency department. ? No past medical history on file. No past surgical history on file. No family history on file. Social History Tobacco Use - Smoking status: Not on file Substance Use Topics - Alcohol use: Not on file - Drug use: Not on file (Not in a hospital admission) Current Facility-Administered Medications Medication Dose Route Frequency - fentaNYL 20 mcg/mL iv infusion in NaCl 0.9% 100 mL 25-250 mcg/hr INTRAVENOUS CONTINUOUS Allergies As of Date: 08/27/2019 Allergen Noted Reaction PENICILLIN G 06/08/2010 Unknown Fully Assessed 08/27/2019 COMPLETE REVIEW OF SYSTEMS: See HPI for pertinent ROS Objective PHYSICAL EXAM: Physical Exam Performed: NEURO: Moves All Extremities HEENT: Right parietal cephalohematoma. NECK: C collar in place RESPIRATORY: No abrasions or contusions, No crepitus CARDIOVASCULAR: Heart rate regular ABDOMEN: Non-distended, Non-tenderness or peritoneal signs PELVIC/PERINEAL: Pelvis stable to palpation BACK/SPINE: No external injury noted EXTREMITIES: No external signs of trauma BP 113/82 Pulse 97 Resp 15 Wt 166 lb 7.2 oz (75.5kg) SpO2 99% DATA: Diagnostic tests reviewed for today's visit: CBC, Coags, BMP, Mg, Phos Recent Labs 08/27/19 1548 WBC 24.47* HB 10.7* HCT 32.1* PLT 498* CSF AND Dilantin Liver Function, Amylase, AND Lipase Recent Labs 08/27/19 1601 LACT 1.9 Cardiac Enzymes ABGs Recent Labs 08/27/19 1558 PCO2 48.4 PO2 33.0 BE -2.0 HCO3 23.8 XR PELVIS 1V AP Final Result IMPRESSION: No acute radiographic abnormality. Sugar Grinder: PSCB Transcribe Date/Time: Aug 27 2019 4:28P Dictated by : MAUREEN SANTANA MD This examination was interpreted and the report reviewed and electronically signed by: MAUREEN SANTANA MD on Aug 27 2019 4:30PM EST XR CHEST 1V FRONTAL Final Result IMPRESSION: No acute radiographic abnormality. Life-support tubes as described. Sugar Grinder: PSCB Transcribe Date/Time: Aug 27 2019 4:24P Dictated by : MAUREEN SANTANA MD This examination was interpreted and the report reviewed and electronically signed by: MAUREEN SANTANA MD on Aug 27 2019 4:27PM EST Impression/Recommendat ions 59 year old female with ICH There is no problem list on file for this patient. Neuro: ICH - Pain Control: tylenol - Sedation: propofol - Seizure ppx: keppra 1000 mg - repeat head CT in am - appreciate NSY recs - head of bed to 30 - continuous EEG CV: HYPOTENSIVE IN ED - on tele - EKG if indicated - call if hypotensive - Resp: INTUBATED - saturating well on O2 Therapy: (P) Ventilator - CXR Findings: Clear lung palacios Recent Labs 08/27/19 1558 PCO2 48.4 PO2 33.0 BE -2.0 HCO3 23.8 Respiratory/Nursing Documentation: O2 Therapy: (P) Ventilator (08/27/19 1555) GI: - No diet orders on file - Bowel Regimen: none - GI ppx: pepcid Renal: - daily BMP - replete lytes prn Potassium Date Value Ref Range Status 10/29/2010 4.5 3.5 - 5.1 MMOL/L Final 10/06/2009 4.4 3.5 - 5.1 MMOL/L Final 10/02/2008 4.2 3.5 - 5.1 MMOL/L Final No results found for: P No results found for: MG No intake or output data in the 24 hours ending 08/27/19 0659 Heme: - transfuse as needed - daily CBC Select Accept to remove transfusion orders -OR- Select Acknowledge Reason and Accept Hemoglobin (G/DL) Date Value 10/29/2010 13.4 10/06/2009 14.1 12/26/2008 13.3 HGB (g/dL) Date Value 08/27/2019 10.7 Endo: - euglycemic - no exogenous use Glucose (MG/DL) Date Value 10/29/2010 87 ID: No data recorded. WBC Date Value Ref Range Status 08/27/2019 24.47 (H) 3.98 - 10.04 thou/cmm Final - Cultures: - BCx none - UCx none - RCx none - MRSA p Ext: - DVT ppx: SCDs - Restraints: soft wrist b/l - Ppx: - DVT: hold chemo ppx - GI: pepcid - Seizure: keppra Lines: Peripheral 08/27/19 Short Right Antecubital 18 Gauge (Active) Peripheral 08/27/19 Left Forearm 22 Gauge (Active) GI Feed 08/27/19 Admission to Hospital Mouth 16 Fr (Active) Indwelling Urinary Catheter 08/27/19 Admission to Hospital Bellamy 16 Fr (Active) Airway Endotracheal Tube 08/27/19 (Active) Consults: - SICU, NSY Dispo: NSICU - SBT/SAT in AM Patient Checklist Deep vein thrombosis prophylaxis administered? No. Contraindicated.. Stress ulcer prophylaxis? Yes. Pain addressed? Yes. Nutrition: Enteral- No. TPN- No. PO- No. Restraints? Yes. Dispo needs assessed? Yes. SIGNATURE: Chris Gomez DO PATIENT NAME: Carla Blackmon DATE: August 27, 2019 TIME: 4:41 PM PAGER: see below SICU Service Pager: For questions or concerns Mon-Fri 6a-5p please page [phone]. After 5pm and on Weekends and Holidays, please page [phone]. Discussed above plan with attending, Dr Navarro Critical Care Attestation Delayed entry ? I personally saw/examined the patient on 08/27/2019. Libia Navarro MD The critical care treatment was mainly directed to address the following issues: ACTIVE PROBLEM LIST Subarachnoid Hemorrhage (Hcc) Fall Acute Respiratory Failure With Hypoxia (Hcc) Seizures (Hcc) Elevated Troponin I Level Tbi (Traumatic Brain Injury) (Hcc) Hyponatremia Hypokalemia Hypochloremia Leukocytosis Hypophosphatemia Critical Care Attestation ? Delayed entry ? I personally saw/examined the patient on 08/27/2019. Libia Navarro MD The critical care treatment was mainly directed to address the following issues: ACTIVE PROBLEM LIST Subarachnoid Hemorrhage (Hcc) Fall Acute Respiratory Failure With Hypoxia (Hcc) Seizures (Hcc) Elevated Troponin I Level Tbi (Traumatic Brain Injury) (Hcc) Hyponatremia Hypokalemia Hypochloremia Leukocytosis Hypophosphatemia New onset seizures, 7 days post fall with head trauma Intubated for altered mental status Continue mechanical ventilation Serial neurologic examinations EEG monitoring for seizures Keppra dosing ICU admit AM CXR and labs ? I provided 30 minutes of critical care services which were necessary due to above specified injuries and illnesses. This patient has a high probability of sudden, clinical significant deterioration, which required the highest level of care and preparedness to intervene urgently. I managed and supervised life or organ supporting interventions that require frequent assessments. This time does not include time devoted to teaching and to any procedure I billed separately. I have personally seen and examined this patient and participated in the brnenan components of this encounter with the multi-disciplinary ICU team. I discussed the management of this case with the resident and reviewed/confirmed their documentation, attached or in separate note. I personally reviewed today's actual images, the associated image reports, and current labs. I supervised the ordering of additional testing, imaging, labs, and/or consultations. The patient and/or family were fully informed of the findings and plan of care. They had the opportunity to ask questions and raise any issues of concern, all of which were answered and dealt with by me to their stated satisfaction. Management included sedation, pain control and ventilation assessment including need for ventilator, weaning and/or extubation as indicated. Management of critical care illnesses are edited above by me, including system by system plan and are not only limited to infectious disease and tailoring the antibiotic therapy, nutrition assessment and supplementation, electrolyte correction and prevention of ICU related complications using ventilator bundle, sedation holiday and assessment and removal of lines and tubes where indicated. DAILY ICU CHECKLIST: The following items were reviewed and are addressed in the plan of care above: *Need for Restraints. *Need for Bellamy Catheter. *Need for Central Access Devices. *Daily Sedation Holiday. *VTE Prophylaxis. SIGNATURE: Libia Navarro MD PATIENT NAME: Carla Blackmon DATE: August 29, 2019 TIME: 10:[address] [facility] CT BRAIN WO IVCONon 08-27-19 CT BRAIN WO IVCON * * *Final Report* * * DATE OF EXAM: Aug 27 2019 5:48PM [facility] 0504 - CT BRAIN WO IVCON / PROCEDURE REASON: Intracranial hemorrhage * * * * Physician Interpretation * * * * EXAMINATION: CT BRAIN WO IVCON CLINICAL HISTORY: Trauma, intracranial hemorrhage TECHNIQUE: Serial axial images without IV contrast were obtained from the vertex to the foramen magnum. MQ: CTBWO_[id number] CT Dose-Length Product (DLP): 821 mGy*cm CT Dose Reduction Employed: Iterative recon COMPARISON: Study performed earlier today RESULT: Post-operative change: None. Acute change: No evidence of an acute infarct or other acute parenchymal process. Hemorrhage: Small regions of parenchymal contusion are seen along the anterior tip of the left temporal lobe (image 15 of series 2) and within the posterior left parietal region (image 22). Significant interval improvement in subarachnoid hemorrhage within the left sylvian fissure since the earlier study. No new hemorrhage is identified. Mass Lesion / Mass Effect: There is no evidence of an intracranial mass or extraaxial fluid collection. No significant mass effect. Chronic change: None apparent. Parenchyma: There is no significant volume loss. The brain parenchyma is otherwise within normal limits for age. Ventricles: The ventricles are within normal limits of size and configuration for age. Paranasal sinuses and skull base: The visualized paranasal sinuses are grossly clear. There is no obvious fracture. Right parietal scalp hematoma. The patient is intubated. Circular Distributor (topogram) images: Unremarkable. IMPRESSION: 1. Small regions of parenchymal contusion again noted along the anterior tip of the left temporal lobe and within the posterior left parietal lobe. 2. Minimal persistent subarachnoid hemorrhage within the left sylvian fissure which is much improved. Sugar Grinder: PSCB Transcribe Date/Time: Aug 27 2019 6:11P Dictated by : DEIDRA SANTO MD This examination was interpreted and the report reviewed and electronically signed by: DEIDRA SANTO MD on Aug 27 2019 6:20PM EST Normal [facility] Calcium, Ionizedon 0 Calcium, Ionized 4.41 mg/dL Low 4.61-5.17 [facility] Comment on above: Performed By: #### E DICG #### [place] [address] Comprehensive Metabolic Pane [facility] 08-27-2019 Albumin [Mass/Vol] 3.8 g/dL Low 3.9-4.9 [facility] Comment on above: Performed By: #### E DLAG #### [facility] [address] [place], [place] [address] ALP [Catalytic activity/Vol] 159 U/L High 34-123 [facility] Comment on above: Performed By: #### E DLAG #### [facility] [address] [place], [place] [address] ALT [Catalytic activity/Vol] 15 U/L Normal 7-38 [facility] Comment on above: Performed By: #### E DLAG #### [facility] [address] [place] [address] Anion gap [Moles/Vol] 8 mmol/L Low 9-18 [facility] Comment on above: Performed By: #### E DLAG #### [facility] [address] [place] [address] AST [Catalytic activity/Vol] 21 U/L Normal 13-35 [facility] Comment on above: Performed By: #### E DLAG #### [facility] [address] [place], [place] [address] Bilirubin [Mass/Vol] 0.4 mg/dL Normal 0.2-1.[address] [facility] Comment on above: Performed By: #### E DLAG #### [facility] [address] [place], [place] [address] Calcium [Mass/Vol] 8.2 mg/dL Low 8.5-10.2 [facility] Comment on above: Performed By: #### E DLAG #### [facility] [address] [place], [place] [address] Chloride [Moles/Vol] 95 mmol/L Low 97-[address] [facility] Comment on above: Performed By: #### E DLAG #### [facility] [address] [place], [place] [address] CO2 Blood 24 mmol/L Normal 22-30 [facility] Comment on above: Performed By: #### E DLAG #### [facility] [address] [place] [address] Creatinine [Mass/Vol] 0.87 mg/dL Normal 0.58-0.96 [facility] Comment on above: Performed By: #### E DLAG #### [facility] [address] [place], [place] [address] Glucose [Mass/Vol] 108 mg/dL High 74-99 [facility] Comment on above: Result Comment: The [place] Diabetes Association (ADA) provides guidance for cutoff values for fasting glucose and random glucose. The ADA defines fasting as no caloric intake for at least 8 hours.Fasting plasma glucose results between 100 to 125 mg/dL indicate increased risk for diabetes (prediabetes). Fasting plasma glucose results greater than or equal to 126 mg/dL meet the criteria for diagnosis of diabetes. In the absence of unequivocal hyperglycemia, results should be confirmed by repeat testing. In a patient with classic symptoms of hyperglycemia or hyperglycemic crisis, random plasma glucose results greater than or equal to 200 mg/dL meet the criteria for diagnosis of diabetes. Reference: Standards of Medical Care in Diabetes 2016; [place] [employer] Association. Diabetes Care. 2016;39(Suppl 1). Performed By: #### E DLAG #### [address] [address] Potassium [Moles/Vol] 4.1 mmol/L Normal 3.7-5.1 [facility] Comment on above: Performed By: #### E DLAG #### [facility] [address] [place], [place] [address] Protein [Mass/Vol] 6.4 g/dL Normal 6.3-8.0 [facility] Comment on above: Performed By: #### E DLAG #### [facility] [address] [place], [place] [address] Sodium [Moles/Vol] 127 mmol/L Low 136-144 [facility] Comment on above: Performed By: #### E DLAG #### [address] [address] Urea nitrogen [Mass/Vol] 12 mg/dL Normal 7-21 [facility] Comment on above: Performed By: #### E DLAG #### [address] [address] ED NOTEon 08-27-2019 ED NOTE HNO ID: [id number] Author: Ama Mark RN Service: [facility] EMERGENCY DEPT SURGERY Author Type: Registered Nurse Type: ED Notes Filed: 08/27/2019 5:10 PM Note Text: Pt's to bedside. [facility] ED NOTE HNO ID: [id number] Author: Ama Mark RN Service: [facility] EMERGENCY DEPT SURGERY Author Type: Registered Nurse Type: ED Notes Filed: 08/27/2019 4:20 PM Note Text: Vent settings: TV 450, rate 14, Peep 5, FiO2 60%. [facility] ED NOTE HNO ID: [id number] Author: Ama Mark RN Service: [facility] EMERGENCY DEPT SURGERY Author Type: Registered Nurse Type: ED Notes Filed: 08/27/2019 4:35 PM Note Text: NS 1L bolus infusion completed (statrted LINE DANCER). [facility] ED NOTE HNO ID: [id number] Author: Ama Mark RN Service: [facility] EMERGENCY DEPT SURGERY Author Type: Registered Nurse Type: ED Notes Filed: 08/27/2019 4:31 PM Note Text: Levo gtt stopped at [address] Lizama. [facility] ED NOTE HNO ID: [id number] Author: Ama Mark RN Service: [facility] EMERGENCY DEPT SURGERY Author Type: Registered Nurse Type: ED Notes Filed: 08/27/2019 5:18 PM Note Text: Neuro MOLD CHANGER Herraiz, to room. [facility] ED NOTE HNO ID: [id number] Author: Roseanne Altman Service: ? Author Type: ? Type: ED Notes Filed: 08/27/2019 3:47 PM Note Text: Bed: [address] [place] [address] Expected date: 08/27/19 Expected time: 3:44 PM Means of arrival: CC Air Comments: [facility] ED PROV NOTEon 08-27-2019 ED PROV NOTE HNO ID: [id number] Author: Frederic Camargo MD Service: Emergency Medicine Author Type: Physician Type: ED Provider Notes Filed: 08/27/2019 5:09 PM Note Text: 59 year old female seen today as a tier one trauma alert. Patient is a transfer from [place]. She reportedly fell on , striking the right side of her head. Today she had a generalized tonic clonic seizure, and then another one for EMS on the way to the hospital. She was given versed with resolution of the seizure. She was found at [place] to have cerebral contusion with SAH, and was intubated for airway protection. On the way here she was given Keppra for the seizures. She was also given propofol and levophed for sedation and hypotension. She presents in critical condition. Trauma team at bedside upon patient's arrival. Patient will be admitted to ICU to the trauma team. Attending Note I evaluated the patient and personally participated in the brennan components. I agree with the resident's findings and plan as documented and have discussed the case and management of the patient's care with the resident. Physical Exam: 1) Hematoma to right parietal area 2) Intubated 3) Lungs CTAB Signature: Frederic Camargo MD Date: 08/27/2019 Time: 5:09 PM Frederic Camargo MD 08/27/[address] [facility] ED PROV NOTE HNO ID: [id number] Author: Stephen Gray MD Service: Emergency Medicine Author Type: Resident Type: ED Provider Notes Filed: 08/28/2019 1:46 AM Note Text: Attestation signed by Frederic Camargo MD at 08/28/2019 3:16 PM Attending Note I evaluated the patient and personally participated in the brennan components. I agree with the resident's findings and plan as documented and have discussed the case and management of the patient's care with the resident. Signature: Frederic Camargo MD Date: 08/28/2019 Time: 3:16 PM ED Provider Note Patient Name: Carla Blackmon SERVICE DATE: 08/27/19 History No chief complaint on file. Chief complaint: Fall, Seizure Prehospital: EMS interventions include: Patient was transferred from an OSH History of present illness: Is a 59-year-old female who presents from an outside hospital after having a seizure. She was diagnosed with subarachnoid hemorrhage. According to family she had a fall on without LOC. She had no symptoms after the fall. She did not seek medical attention at that time. I spoke with the at bedside and he states that she had an additional fall 2 weeks earlier after getting out of bed. She had a bruise on her sacrum after this fall. She denied hitting her head, but stated that her neck was hurting. No past medical history on file. No past surgical history on file. No family history on file. Social History Tobacco Use - Smoking status: Not on file Substance and Sexual Activity - Alcohol use: Not on file - Drug use: Not on file - Sexual activity: Not on file ALLERGIES Allergen Reactions - Penicillin G Unknown Review of Systems Unable to perform ROS: Other (Patient intubated) Physical Exam BP 105/81 Pulse 107 Resp 18 SpO2 100% Physical Exam Primary survey: Airway: Intubated Bilateral breath sounds verified by auscultation. Circulation: intact upper and lower ext pulses, no active bleeding Disability: GCS 10 T, Moving all extremities. Secondary: Gen: Intubated and sedated in no acute distress Head: Right parietal cephalohematoma and face is stable. ENT: Pupils are equal round and reactive to light, 3 mm bilaterally. EOMI. There is no nasal deformity, septal hematoma, dental malocclusions, or left-sided hemotympanum. Right side was unable to be visualized due to patient's c-collar. C-spine: No midline bony step-offs, deformities, or crepitance. CV: There are clear regular heart sounds that are not muffled or tachycardic. There is no crepitance to the chest wall or ecchymosis. Abdomen: soft nondistended and nontender with no seatbelt sign. Back: No midline thoracic or lumbar spinal step-offs or crepitance. There is evidence of old ecchymoses on the patient's sacrum. Pelvis: stable to compression. Neuro moving all extremities patient not following commands. Ext: No lacerations or abrasions noted on any extremities. Diagnostic Testing ED Labs Ordered and Reviewed VENOUS BLOOD GAS, POC(AK) - Abnormal; Notable for the following components: Result Value Ref Range pH (POCT) 7.313 (*) 7.320 - 7.430 All other components within normal limits ELECTROLYTES,POC(AK) - Abnormal; Notable for the following components: Sodium (POCT) 128 (*) 136 - 146 mEq/L Chloride (POCT) 97 (*) 102 - 109 mmol/L All other components within normal limits IONIZED CALCIUM,POC(AK) - Abnormal; Notable for the following components: Ionized Ca (POCT) 4.41 (*) 4.61 - 5.17 mg/dL All other components within normal limits HEMOGLOBIN/HEMATOCRIT, POC(AK) - Abnormal; Notable for the following components: Hemoglobin (POCT) 10.6 (*) 12.0 - 16.0 g/dL Hematocrit (POCT) 32.8 (*) 37.0 - 49.0 % All other components within normal limits LACTIC ACID,POC(AK) EXPEDITED COVID19 Procedures ED Course / Clinical Impression MDM / Disposition / Plan ED course. Patient was evaluated by the emergency physicians as well as the trauma surgery team using an ATLS protocol. In the ED the patient was given propofol and Versed. Patient was sent to CT scanner stable condition Diagnoses: Parenchymal contusions Subarachnoid hemorrhage New onset seizures Prolonged QT SIGNATURE: MD Stephen Malone (Res) MD Isaac Resident 08/28/19 0146 Frederic Camargo MD 08/28/[address] [facility] Electrolytes Whole Bloodon 0 - Chloride [Moles/Vol] 97 mmol/L Low 102-[address] [facility] Comment on above: Performed By: #### E DLYT #### [facility] [address] [place] [address] Potassium [Moles/Vol] 3.8 mmol/L Normal 3.4-4.5 [facility] Comment on above: Performed By: #### E DLYT #### [facility] [address] [place], [place] [address] Sodium [Moles/Vol] 128 mmol/L Low 136-146 [facility] Comment on above: Performed By: #### E DLYT #### [facility] [address] [place], [place] [address] HISTORY PHYSICALon 0 HISTORY PHYSICAL HNO ID: [id number] Author: Don Lizama Service: Trauma Author Type: Physician Type: HANDP Filed: 08/28/2019 12:01 PM Note Text: TRAUMA HANDP [facility] ARRIVAL DATE: 08/27/2019 ARRIVAL TIME: 3:49 PM CATEGORY: Level 1 INJURY DATE: - 08/11/2019 Pavan Garcia is a 59 year old female. GCS upon arrival 10T. She arrives to [facility] ED intubated. Per report, the patient fell and hit her head on . She was evaluated and cleared of injury. Today she had several witnessed seizures. She was transported by ambulance to an outside ED and was given anti-seizure medications in route. She was found to have ICH and it was decided to transfer the patient to [facility]. During transport to [facility] she as given propofol for sedation and levophed for low blood pressures. HPI/CHIEF COMPLAINT: Fall BRIEF DESCRIPTION OF INJURIES: ICH LAST FLUIDS/MEAL: Unknown CODE STATUS: Not discussed ALLERGIES Allergen Reactions - Penicillin G Unknown (Not in a hospital admission) DATE OF LAST TETANUS: Unknown There is no immunization history on file for this patient. No past medical history on file. No past surgical history on file. Social History Tobacco Use - Smoking status: Not on file Substance Use Topics - Alcohol use: Not on file - Drug use: Not on file No family history on file. Objective PRIMARY SURVEY AIRWAY: Intubated BREATHING: Breath sounds equal CIRCULATION: Femoral 2+ DISABILITY: Eye: 4=Spontaneous Verbal: Patient intubated Motor: 5=Purposeful Movements Total GCS: 10T Resp Rate: 10 to 29=4 Syst BP: > than 89=4 REVISED TRAUMA SCORE: 11 EXPOSE / ENVIRONMENT: Warm Blankets SECONDARY SURVEY VITALS: 08/27/19 1558 08/27/19 1604 08/27/19 1604 08/27/19 1608 BP: 122/93 109/84 125/97 Pulse: (!) 100 (!) 99 (!) 99 (!) 92 Resp: SpO2: 100% 100% NEURO: Moves All Extremities HEENT: Right parietal cephalohematoma. NECK: C collar in place RESPIRATORY: No abrasions or contusions, No crepitus CARDIOVASCULAR: Heart rate regular ABDOMEN: Non-distended, Non-tenderness or peritoneal signs PELVIC/PERINEAL: Pelvis stable to palpation BACK/SPINE: No external injury noted EXTREMITIES: No external signs of trauma PRIOR TO ARRIVAL: Oral ETT Backboard IMAGES Xray Chest: IMPRESSION: No acute radiographic abnormality. Life-support tubes as described. Xray Pelvis: IMPRESSION: No acute radiographic abnormality. Rest of imaging performed at outside hospital pending, to be uploaded. Assessment/Plan There are no active hospital problems to display for this patient. 59 year old female s/p fall. Imaging performed: 1. Imaging performed at outside hospital pending, to be uploaded. 2. XR chest 3. XR pelvis Traumatic Inuries: 1. ICH Operations: 1. None Care Plan: 2. Care per SICU 3. Imaging pending 4. NPO 5. Neurochecks 6. Intubated and sedated 7. Maintain C collar 8. Neurosurgery consult 9. cEEG 10. Keppra 11. Pain control 12. Repeat head CT in AM. Consulted Services and recs: 1. SICU 2. Neurosurgery Dispo Plannin. SICU Prophylaxis and Protocols: 1. BMI > 40?: No. 2. Appropriate DVT PPx: Yes. Holding AC due to ICH 3. Ulcer PPx indicated: Yes. Incidentals: 1. TBD Follow Up Needs: 1. TBD Plan of care discussed with Dr. Lizama at bedside in trauma bay. SIGNATURE: Jose Miguel Almanzar MD PATIENT NAME: Carla Blackmon DATE: August 27, 2019 TIME: 3:56 PM Pager: below Trauma Service Pager: For questions or concerns Mon-Fri 6a-5p please page [phone]. After 5pm and on Weekends and Holidays, please page [phone] if in ICU or [phone] if on RNF. Attending Note I personally saw and examined the patient. I reviewed the resident's note. I agree with the resident's assessment and plan unless otherwise noted. As above Seen in ED as part of Level 2 Trauma activation Has TBI with SAH Seized today and intubated mostly for airway protection Cervical CT neg for fractures Plan: Admit to NSICU NS consult for SAH Neurology consult for seizures NPO C-collar for now Repeat head CT in AM Propofol drip Pain control Signature: Don Lizama MD Date: 08/28/2019 Time: 11:[address] [facility] Hemoglobin/Hematocriton 08-17 Hematocrit (Bld) [Volume fraction] 32.8 % Low 37.0-49.0 [facility] Comment on above: Performed By: #### E [facility] #### [place] [address] Hemoglobin (Bld) [Mass/Vol] 10.6 g/dL Low 12.0-16.0 [facility] Comment on above: Performed By: #### E [facility] #### [place] [address] Hemogram/Diffon 08-27-2019 Abs Immature Grans 0.20 thou/cmm High 0.00-0.05 [facility] Comment on above: Performed By: #### C BCD1 #### [place] [address] Abs Neut (ANC) 18.25 thou/cmm High 1.56-6.13 [facility] Comment on above: Performed By: #### C BCD1 #### [place] [address] Abs. Baso 0.15 thou/cmm High 0.01-0.08 [facility] Comment on above: Performed By: #### C BCD1 #### [place] [address] Abs. [place] 1.25 thou/cmm High 0.27-0.70 [facility] Comment on above: Performed By: #### C BCD1 #### [place] [address] Basophils/100 WBC (Bld) 0.6 % Normal [facility] Comment on above: Performed By: #### C BCD1 #### [address] [place], [place] [address] Eosinophils (Bld) [#/Vol] 2.86 thou/cmm High 0.00-0.31 [facility] Comment on above: Performed By: #### C BCD1 #### [facility] [address] [place], [place] [address] Eosinophils/100 WBC (Bld) 11.7 % Normal [facility] Comment on above: Performed By: #### C BCD1 #### [facility] [address] [place], [place] [address] Immature Grans 0.80 % Normal [facility] Comment on above: Performed By: #### C BCD1 #### [facility] [address] [place], [place] [address] Lymphocytes (Bld) [#/Vol] 1.76 thou/cmm Normal 1.18-3.74 [facility] Comment on above: Performed By: #### C BCD1 #### [facility] [address] [place], [place] [address] Lymphocytes/100 WBC (Bld) 7.2 % Normal [facility] Comment on above: Performed By: #### C BCD1 #### [facility] [address] [place], [place] [address] Monocytes/100 WBC (Bld) 5.1 % Normal [facility] Comment on above: Performed By: #### C BCD1 #### [facility] [address] [place], [place] [address] Seg Neutrophil 74.6 % Normal [facility] Comment on above: Performed By: #### C BCD1 #### [facility] [address] [place], [place] [address] Erythrocyte distribution width (RBC) [Ratio] 13.1 % Normal 11.7-14.4 [facility] Comment on above: Performed By: #### C BCD1 #### [facility] [address] [place], [place] [address] Hematocrit (Bld) [Volume fraction] 32.1 % Low 34.1-44.9 [facility] Comment on above: Performed By: #### C BCD1 #### [facility] [address] [place], [place] [address] Hemoglobin (Bld) [Mass/Vol] 10.7 g/dL Low 11.2-15.7 [facility] Comment on above: Performed By: #### C BCD1 #### [facility] [address] [place], [place] [address] MCH (RBC) [Entitic mass] 28.2 pg Normal 25.6-32.2 [facility] Comment on above: Performed By: #### C BCD1 #### [facility] [address] [place] [address] MCHC (RBC) [Mass/Vol] 33.3 % Normal 31.6-34.8 [facility] Comment on above: Performed By: #### C ELLEND1 #### [facility] [address] [place] [address] MCV (RBC) [Entitic vol] 84.5 fL Normal 79.4-94.8 [facility] Comment on above: Performed By: #### C BCD1 #### [facility] [address] [place] [address] Platelet mean volume (Bld) [Entitic vol] 9.4 fL Normal 9.4-12.3 [facility] Comment on above: Performed By: #### C BCD1 #### [facility] [address] [place] [address] Platelets (Bld) [#/Vol] 498 thou/cmm High 182-369 [facility] Comment on above: Performed By: #### C BCD1 #### [facility] [address] [place] [address] RBC (Bld) [#/Vol] 3.80 mil/cmm Low 3.93-5.22 [facility] Comment on above: Performed By: #### C BCD1 #### [facility] [address] [place] [address] RDW SD 40.4 fl Normal 36.4-46.3 [facility] Comment on above: Performed By: #### C BCD1 #### [facility] [address] [place] [id number] WBC (Bld) [#/Vol] 24.47 thou/cmm High 3.98-10.04 [facility] Comment on above: Performed By: #### C BCD1 #### [facility] [address] [place] [id number] Lactic Acidon 08-27-2019 Lactate [Moles/Vol] 1.9 mmol/L Normal 0.5-2.2 [facility] Comment on above: Performed By: #### E DLAG #### [facility] [address] [place] [id number] Lipase Bloodon 08-27-2019 Lipase Blood 34 U/L Normal 16-61 [facility] Comment on above: Performed By: #### E DLAG #### [facility] [address] [place] [address] NURSING PROGon 08-27-2019 NURSING PROG HNO ID: [id number] Author: Brigette RodriguesRnSantos Avendano RN Service: Nursing Author Type: Registered Nurse Type: Nursing Progress Note Filed: 08/28/2019 1:27 AM Note Text: Nursing Progress: Topic: RESTRAINT NON-VIOLENT PATIENT NAME: Carla Blackmon PATIENT LOCATION: [place] [address] 20* The patient demonstrates Impulsive Behavior, Attempting to Remove Medical Devices Vital to Medical Stability as evidenced by the following behaviors restless, impulsive reaching for vital medical equipment such as endotracheal tube; pt unable to retain safety directions which pose an imminent danger to self or others. The following interventions were attempted but were not effective in protecting the patient's safety: Call Light Within Reach, Bed in Low/Locked Position, Modify Equipment, Frequent Observation, Modify Environment, Pain/Discomfort Relief Next, a comprehensive assessment was performed and warranted placing the patient in Soft Bilateral Wrists, the least restrictive restraint needed to protect the patient's safety. Ongoing safety assessments and evaluation for earliest removal of restraints will be performed. DATE: August 27, 2019 TIME: 8:00 PM Brigette Avendano RN Normal [facility] NURSING PROG HNO ID: [id number] Author: Sosa Machado RN Service: Nursing Author Type: Registered Nurse Type: Nursing Progress Note Filed: 08/27/2019 5:51 PM Note Text: RN received report from WHITE SOURERAma WHEELER. Covid test pending. RN clarified with house designer, Hay, if okay to transfer to NSICU with pending Covid results since the patient is a trauma 1. Per supervisor sample, Hay, patient is not to be transferred from our main ER until Covid results are back. NSICU RN updated WHITE SOURERAma WHEELER. gricel wheeler Normal [facility] Protime/APTTon 08-27-2019 aPTT Coag (Bld) [Time] 24.2 s Normal 23.0-32.4 [facility] Comment on above: Result Comment: Unfr actionated Heparin Therapeutic Ranges: Standard Heparin Nomogram: 53 to 78 seconds (anti-Xa level of 0.3 to 0.7 U/mL) Low Dose/ACS Nomogram: 49 to 67 seconds (anti-Xa level of 0.2 to 0.5 U/mL) Stroke Treatment Nomogram: 49 to 67 seconds (anti-Xa level of 0.2 to 0.5 U/mL) Note: The APTT therapeutic range has been determined for the current lot of laboratory APTT reagent in use throughout the [facility]. Performed By: #### P TPTT #### [place] [address] INR Coag (PPP) [Relative time] 0.95 {INR} Normal 0.90-1.30 [facility] Comment on above: Result Comment: Ting min K Antagonist (VKA) Therapeutic Range: INR 2 to 3 (Target INR of 2.5) Note: For patients treated with VKA drugs, such as warfarin, the [place] [employer] 2012 Guideline recommends a therapeutic INR range of 2 to 3 (target INR of 2.5). This recommendation includes high-risk patients with antiphospholipid syndrome with previous arterial or venous thromboembolism, current-generation mechanical or bioprosthetic aortic heart valve replacement. Note: Patients with mechanical aortic valve replacement and additional risk factors for thromboembolic events (atrial fibrillation, previous thromboembolism, LV dysfunction, hypercoagulable conditions) or an older generation mechanical AVR (i.e., ball in-Cage) or any mechanical MVR should have a INR therapeutic range of 2.5 to 3.5 target INR of 3). Guyatt GH, et al. Chest 2012; 141:7S-47S Elsie RA, et al. JAC 2017; 70: 252-289 Performed By: #### P TPTT #### [facility] [address] [place], [place] [address] PT Coag (PPP) [Time] 10.3 s Normal 9.7-13.[address] [facility] Comment on above: Performed By: #### P TPTT #### [facility] [address] [place], [place] [address] Rapid, COVID 19on 08-27-2019 Rapid, COVID 19 Negative Normal Negative [facility] Comment on above: Result Comment: This test has been authorized by the FDA under an Emergency Use Authorization (EUA). Performed By: #### E DLAG #### [address] [address] Salicylateon 08-27-2019 Salicylate <0.3 Low 3.0-30.0 [facility] Comment on above: Result Comment: The therapeutic range varies and has been reported to be 3.0 to 10.0 mg/dL for anti-pyretic/analgesic conditions and 15.0 to 30.0 mg/dL for anti-inflammatory/rheumatic fever conditions. Ranges published by the instrument automobile mechanic supervisor. Reference ranges and high/low indicator flags are provided as general guidelines only. The treating physician must determine appropriate target levels/dosing based on the specific clinical situation. Performed By: #### E DLAG #### [address] [address] Troponin T, High Sens.on Troponin T, High Sens. 186 ng/L Critically high 0-11 [facility] Comment on above: Result Comment: Lia ents taking a biotin dose of up to 5 mg/day should refrain from taking biotin for 4 hours prior to sample collection. Patients taking a biotin dose of 5 to 10 mg/day should refrain from taking biotin for 8 hours prior to sample collection. Patients taking a biotin dose > 10 mg/day should consult with their physician or the laboratory prior to having a sample taken. Clinicians should consider biotin interference as a source of error, when clinically suspicious of the laboratory result. Performed By: #### E DLYT #### [facility] [address] [place] [address] Type and Screenon 08-27-2019 ABO group Nom (Bld) AB Normal [facility] Comment on above: Performed By: #### E DLAG #### [facility] [address] [place] [address] Comment Emergency Room Normal [facility] Comment on above: Performed By: #### E DLAG #### [facility] [address] [place] [address] RH Type Negative Normal [facility] Comment on above: Performed By: #### E DLAG #### [facility] [address] [place] [address] Urine Drug Screenon 08-27-19 20 Urine Alcohol <11 Normal 0-11 [facility] Comment on above: Performed By: #### E DLAG #### [facility] [address] [place] [address] Urine Amphetamine Negative Normal NEGATIVE [facility] Comment on above: Performed By: #### E DLAG #### [facility] [address] [place] [address] Urine Barbiturates Negative Normal NEGATIVE [facility] Comment on above: Performed By: #### E DLAG #### [facility] [address] [place] [address] Urine Benzodiazepine see below Abnormal NEGATIVE [facility] Comment on above: Result Comment: PRES UMPTIVE POSITIVE Performed By: #### E DLAG #### [facility] [address] [place] [address] Urine Cocaine Metab Negative Normal NEGATIVE [facility] Comment on above: Performed By: #### E DLAG #### [facility] [address] [place] [address] Urine Opiates Negative Normal NEGATIVE [facility] Comment on above: Performed By: #### E DLAG #### [facility] [address] [place] [address] Urine Oxycodone see below Abnormal NEGATIVE [facility] Comment on above: Result Comment: PRES UMPTIVE POSITIVE Performed By: #### E DLAG #### [facility] [address] [place] [address] Urine PCP Negative Normal NEGATIVE [facility] Comment on above: Result Comment: Test Cutoff Unit Amphetamines 1000 ng/mL Barbiturates 200 ng/mL Benzodiazepines 200 ng/mL Cannabinoids 50 ng/mL Cocaine 300 ng/mL Opiates 300 ng/mL Oxycodone 100 ng/mL Phencyclidine 25 ng/mL Reference Range: Negative at cutoff threshold Immunoassay screen only. Cross reactivity with other substances can occur with immunoassay screening. Detection of any drug(s) in this urine toxicology panel is presumptive only. These tests are for medical purposes only and should not be used for compliance monitoring, legal, or forensic use. In clinical settings, confirmatory testing is at the practitioner?s discretion.1 If clinically indicated, confirmation by high specificity, quantitative methodology may be requested on the same specimen through the laboratory at ([phone]) if contacted within 48 hours of initial 1. Substance Abuse and Mental Health Services Administration (2012). Clinical Drug Testing in Primary Care Technical Assistance Publication Series 32. Department of Health and Human Services, [place], p.10. Performed By: #### E DLAG #### [facility] [address] [place] [address] Urine THC Negative Normal NEGATIVE [facility] Comment on above: Performed By: #### E DLAG #### [place] [address] Venous Blood Gason 06-10-202 0 Base Excess -2.0 mEq/L Normal -3.0-3.0 [facility] Comment on above: Performed By: #### E DVBG #### [facility] [address] [place] [address] HCO3 (Bld) [Moles/Vol] 23.8 mmol/L Normal 21.0-30.0 [facility] Comment on above: Performed By: #### E DVBG #### [facility] [address] [place] [address] PCO2 Venous 48.4 mm Hg Normal 40.6-60.0 [facility] Comment on above: Performed By: #### E DVBG #### [place] [address] pH Venous 7.313 Low 7.320-7.430 [facility] Comment on above: Performed By: #### E DVBG #### [facility] [address] [place], [place] [address] PO2 Venous 33.0 mm Hg Normal 15.9-37.5 [facility] Comment on above: Performed By: #### E DVBG #### [facility] [address] [place], [place] [address] XR CHEST 1V FRONTALon 2019 XR CHEST 1V FRONTAL * * *Final Report* * * DATE OF EXAM: Aug 27 2019 4:14PM [id number] [id number] - XR CHEST 1V FRONTAL / PROCEDURE REASON: Acute respiratory illness * * * * Physician Interpretation * * * * EXAMINATION: CHEST RADIOGRAPH (SINGLE VIEW AP OR PA) CLINICAL HISTORY: Acute respiratory illness MQ: [id number] Comparison: Outside chest x-ray 08/27/2019 at 1:46 PM RESULT: Lines, tubes, and devices: Endotracheal tube terminates 2 cm above the samuel. A orogastric tube courses below the diaphragm with proximal side-port in the expected location of the gastric body. Lungs and pleura: The pulmonary vasculature is normal. The hilar structures are unremarkable. No consolidation. No pleural effusion. No pneumothorax. Cardiomediastinal silhouette: Normal cardiomediastinal silhouette. Other: No acute bony process. Surgical clips are present in the soft tissues overlying the chest wall. IMPRESSION: No acute radiographic abnormality. Life-support tubes as described. Sugar Grinder: [facility] Transcribe Date/Time: Aug 27 2019 4:24P Dictated by : MAUREEN SANTANA MD This examination was interpreted and the report reviewed and electronically signed by: MAUREEN SANTANA MD on Aug 27 2019 4:27PM EST Normal [facility] XR PELVIS 1V APon 08-27-2019 XR PELVIS 1V AP * * *Final Report* * * DATE OF EXAM: Aug 27 2019 4:14PM [id number] - XR PELVIS 1V AP / PROCEDURE REASON: Hip trauma, fx suspected, initial exam * * * * Physician Interpretation * * * * EXAMINATION: XR PELVIS 1V AP HISTORY: TRAUMA: FALL Hip trauma, fx suspected, initial exam. TECHNIQUE: XR PELVIS 1V AP Laterality: NOT APPLICABLE Number of different views (projections): 1 M: XB_1 COMPARISON: 04/13/2006 RESULT: The hip joints are maintained. The pelvis is intact. No acute fracture. No dislocation. The sacroiliac joints are maintained. Degenerative changes of the lower lumbar spine. Indeterminate sclerotic 8 mm density overlying the right iliac bone may be within the soft tissues or bowel gas. Attention on follow-up. Likely rectal temperature probe is present. No other significant abnormality. IMPRESSION: No acute radiographic abnormality. Sugar Grinder: [facility] Transcribe Date/Time: Aug 27 2019 4:28P Dictated by : MAUREEN SANTANA MD This examination was interpreted and the report reviewed and electronically signed by: MAUREEN SANTANA MD on Aug 27 2019 4:30PM EST Normal [facility] Vital Signs Date Time Vital Sign Value Performing Clinician Faci lity 07-14-2024 14:56-0400 Body height 160.02 cm Edie Crowder BOAT WORKER-C Work Phone: [facility] 06-05-2024 15:29-0400 Body height 160.02 cm Edie Crowder BOAT WORKER-C Work Phone: [facility] 01-29-2024 15:29-0500 Body mass index (BMI) [Ratio] 27.6 kg/m2 Edie Crowder BOAT WORKER-C Work Phone: [facility] 01-29-2024 15:29-0500 Body temperature 97.2 [degF] Edie Crowder BOAT WORKER-C Work Phone: [facility] 01-29-2024 15:29-0500 Body weight 70.76 kg Edie Crowder BOAT WORKER-C Work Phone: [facility] 01-29-2024 15:29-0500 Diastolic blood pressure 74 mm[Hg] Edie Crowder BOAT WORKER-C Work Phone: [facility] 01-29-2024 15:29-0500 Heart rate 72 /min Edei Crowder BOAT WORKER-C Work Phone: [facility] 01-29-2024 15:29-0500 Respiratory rate 18 /min Edie Crowder BOAT WORKER-C Work Phone: [facility] 01-29-2024 15:29-0500 SaO2% (BldA) [Mass fraction] 98 % Edie Crowder BOAT WORKER-C Work Phone: [facility] 01-29-2024 15:29-0500 Systolic blood pressure 140 mm[Hg] Edie Crowder BOAT WORKER-C Work Phone: [facility] 03-26-2023 20:14-0500 Body height 160.02 cm [facility] 02-01-2023 14:59-0500 Body height 160.02 cm [facility] 02-01-2023 14:59-0500 Body mass index (BMI) [Ratio] 28 kg/m2 [facility] 02-01-2023 14:59-0500 Body temperature 97.7 [degF] [facility] 02-01-2023 14:59-0500 Body weight 71.66 kg [facility] 02-01-2023 14:59-0500 Diastolic blood pressure 80 mm[Hg] [facility] 02-01-2023 14:59-0500 Heart rate 59 /min [facility] 02-01-2023 14:59-0500 Respiratory rate 18 /min [facility] 02-01-2023 14:59-0500 SaO2% (BldA) [Mass fraction] 59 % [facility] 02-01-2023 14:59-0500 Systolic blood pressure 160 mm[Hg] [facility] 01-10-2022 14:50-0400 Body height 160.02 cm [facility] Work Phone: 01-10-2022 14:50-0400 Body mass index (BMI) [Ratio] 27.3 kg/m2 [facility] Work Phone: 01-10-2022 14:50-0400 Body weight 69.85 kg [facility] Work Phone: Encounters Encounter Date Encounter Type Care Provider Facility Start: 08-21-2024 ambulatory Edie Crowder BOAT WORKER Faci lity:[facility] Start: 08-15-2024 End: 08-15-2024 ambulatory Deiepedro pablo Crowder BOAT WORKER Facility:[facility] Start: 08-14-2024 End: 08-14-2024 ambulatory Edie Crowder BOAT WORKER Facility:[facility] Start: 08-04-2024 End: 08-04-2024 ambulatory Edie Crowder BOAT WORKER-C Work Phone: [facility] Work Phone: Start: 08-04-2024 End: 08-04-2024 Patient encounter procedure Edie Crowder BOAT WORKER-C -Ultrasound [facility] Work Phone: Start: 08-04-2024 End: 08-04-2024 ambulatory Edie Crowder BOAT WORKER Facility:[facility] Start: 07-14-2024 End: 07-14-2024 ambulatory Edie Crowder BOAT WORKER-C Work Phone: [facility] Work Phone: Start: 07-14-2024 End: 07-14-2024 Departed Referred Edie Crowder BOAT WORKER-C -[facility] Work Phone: Start: 07-14-2024 End: 07-14-2024 ambulatory Edie Crowder BOAT WORKER Facility:[facility] Start: 06-05-2024 End: 06-05-2024 ambulatory Edie Crowder BOAT WORKER-C Work Phone: [facility] Work Phone: Start: 06-05-2024 End: 06-05-2024 Patient encounter procedure Edie Vel BOAT WORKER-C -Laboratory, Specimen Work Phone: Start: 06-05-2024 End: 06-05-2024 ambulatory Edie Crowder BOAT WORKER Facility:[facility] Start: 05-15-2024 End: 05-15-2024 ambulatory Edie Crowder BOAT WORKER-C Work Phone: [facility] Work Phone: Start: 05-15-2024 End: 05-15-2024 Patient encounter procedure Edie Crowder BOAT WORKER-C -Laboratory, Specimen Work Phone: Start: 05-15-2024 End: 05-15-2024 ambulatory Edie Soteloson BOAT WORKER Facility:[facility] Start: 04-28-2024 End: 04-28-2024 Patient encounter procedure Edie Crowder BOAT WORKER-C -Laboratory, Specimen Work Phone: Start: 04-28-2024 End: 04-28-2024 ambulatory Edie Crowder BOAT WORKER Facility:[facility] Start: 01-29-2024 End: 01-29-2024 Patient encounter procedure Edie Crowder BOAT WORKER-C -Laboratory, Specimen Work Phone: Start: 01-29-2024 End: 01-29-2024 ambulatory Ediepedro pablo Crowder BOAT WORKER Facility:[facility] Start: 10-14-2023 End: 10-14-2023 Letter encounter Johnathon Patel SUPERVISOR ELECTRIC-MOLD CHANGER Work Phone: [facility] Start: 03-27-2023 End: 03-27-2023 ambulatory [facility] Work Phone: Start: 03-27-2023 End: 03-27-2023 Patient encounter procedure [facility]-Laboratory, Specimen Work Phone: Start: 02-01-2023 End: 02-01-2023 ambulatory [facility] Work Phone: Start: 02-01-2023 End: 02-01-2023 Patient encounter procedure [facility]-Laboratory, Specimen Work Phone: Start: 01-10-2022 End: 01-10-2022 ambulatory [facility] Work Phone: Start: 01-10-2022 End: 01-10-2022 Patient encounter procedure [facility]-Laboratory, Specimen Start: 12-07-2018 Patient encounter status [facility] Procedures Date Procedure Procedure Detail Performing Clinician Start: 04-28-2024 Measurement of renal function Edie Crowder BOAT WORKER-C Work Phone: Comment on above: GFR Calc Start: 04-28-2024 Total iron binding c apacity measurement Edie Crowder BOAT WORKER-C Work Phone: Start: 01-29-2024 Urine culture Edie vaz BOAT WORKER-C Work Phone: Start: 08-28-2019 Electrocardiogram Start: 08-27-2019 Electrocardiogram Start: 08-27-2019 Antibody screen Comment on above: Performed By: #### E DLAG #### [place] [id number] Plan of Treatment Date Care Activity Detail Author Start: 08-04-2024 Ultrasonography of abdomen Abdomen Limited [facility] Start: 12-18-2023 Influenza vaccination Influenza Vaccine (#1) [facility] Start: 2023 Pneumococcal vaccination Pneumococcal Vaccine(s) (65+ yrs) (1 of 1 - PCV) [facility] Start: 2023 Screening for osteoporosis Bone Densitometry [facility] Start: 11-17-2022 COVID-19 Vaccine ( season) COVID-19 Vaccine ( season) [facility] Start: 2018 Hepatitis B (HBV) Vaccine (optional start 60+ years) Hepatitis B (HBV) Vaccine (optional start 60+ years) [facility] Start: 2018 RSV vaccine (optional 60+ years) RSV vaccine (optional 60+ years) [facility] Start: 2008 Shingles (RZV) Vaccine (1 of 2) Shingles (RZV) Vaccine (1 of 2) [facility] Start: 2003 Cholesterol [Mass/volume] in Serum or Plasma Cholesterol [facility] Start: 2003 Screening for malignant neoplasm of colon [facility] Start: 1998 Screening for malignant neoplasm of breast Mammography [facility] Start: 1979 Screening for malignant neoplasm of cervix Pap Smear [facility] Start: 1977 Hepatitis A (HAV) Vaccine (optional start 19+ years) Hepatitis A (HAV) Vaccine (optional start 19+ years) [facility] Start: 1976 Hepatitis C screening Hepatitis C Antibody [facility] Start: 1976 Tetanus + diphtheria + acellular pertussis vaccine (product) Tdap Booster [facility] Start: 1958 Screening for malignant neoplasm of colon Colonoscopy [facility] Prolactin measurement [place] [facility] Immunizations Immunization Date Immunization Notes Care Provider Fa jordy 12-14-2017 influenza, injectabl e, quadrivalent, preservative free Johnathon Patel SUPERVISOR ELECTRIC-MOLD CHANGER Work Phone: [facility] 12-14-2017 influenza virus vacc ine, unspecified formulation Johnathon Patel SUPERVISOR ELECTRIC-MOLD CHANGER Work Phone: [facility] 12-30-2010 influenza, seasonal, injectable, preservative free Johnathonjasiel Patel SUPERVISOR ELECTRIC-MOLD CHANGER Work Phone: [facility] Payers Date Payer Category Payer Self-pay [id number] 2024 Self-pay [id number] 2019 Private Health Insurance CIG[employer] - PPO/POS CIGNA OPEN ACCESS [id number] 2019-Present [address] [place] [address] PPO [id number] Private Health Insurance CIGNA [id number] Unknown [facility] [id number] Unknown [employer] [place] [id number] Unknown AARP MCR ADV [id number] Unknown [id number] Unknown [id number] 62 Unknown [id number] 62 Unknown [id number] 62 Unknown [id number] 62 Unknown [id number] 62 Unknown [id number] 62 Unknown [id number] 62 Unknown [id number] 62 Social History Date Type Detail Facility Start: 12-19-2019 End: 03-26-2023 Tobacco smoking status MEIS Unknown if ever smoked [facility] Start: 08-27-2019 Cigarettes [facility] Start: 1960 Sex Assigned At Female [facility] Start: 09-25-2019 [facility] History of tobacco use Current smoker [facility] Start: 09-25-2019 Tobacco use and exposure Smokeless tobacco non-user [facility] Start: 06-07-2020 History of Social function [facility] Start: 06-07-2020 Tobacco use panel [facility] Adolescent depressio n screening assessment 0 [facility] Start: 1960 Sex [facility] at [facility] file [facility] Start: 03-26-2023 [facility]finding[facility] Start: 05-28-2024 End: 07-18-2024 Sex Female (finding) [facility] Evaluation note 04-28-2024 Note Date & Type Note Facility 04-28-2024 Evaluation note Diagnosis Onset Date Resolution Anemia acute April 28, 2024 2:53pm Hyponatremia acute April 2:53pm Chronic headaches chronic Februar y 2024 2:53pm Hyponatremia acute June 05, 2024 3:09pm [facility] Work Phone: Evaluation note 04-28-2024 Note Date & Type Note Facility 04-28-2024 Evaluation note Diagnosis Onset Date Resolution Anemia acute April 28, 2024 2:53pm Hyponatremia acute April 2:53pm Chronic headaches chronic Februar 2024 2:53pm Hyponatremia acute June 05, 2024 3:09pm Hyponatremia acute July 14, 2024 2:47pm [facility] Work Phone: Evaluation note 01-29-2024 Note Date & Type Note Facility 01-29-2024 Evaluation note Diagnosis Onset Date Resolution Cystitis acute January 29, 2024 3:04pm Edema acute January 29, 2024 3:04pm Fibromyalgia acute January 3:04pm GERD (gastroesophageal reflux disease) acute January 28, 2 024 3:04pm Hypothyroidism (acquired) acute January 28, 2 024 3:04pm Hypertension chronic January 3:04pm Anemia acute April 28, 2024 2:53pm Hyponatremia acute April 2:53pm Chronic headaches chronic Februar 2024 2:53pm [facility] Work Phone: Evaluation note Note Date & Type Note Facility Evaluation note Diagnosis Onset Date Hyperlipemia acute Hypothyroidism (acquired) [place] Maxillary sinusitis acute Hypertension chronic [facility] Work Phone: Evaluation note Note Date & Type Note Facility Evaluation note Diagnosis Onset Date GERD (gastroesophageal reflux disease) acute Hyperlipemia acute Chronic headaches chronic Hypertension chronic [facility] Work Phone: Evaluation note Note Date & Type Note Facility Evaluation note Diagnosis Onset Date GERD (gastroesophageal reflux disease) acute Hyperlipemia acute Chronic headaches chronic Hypertension chronic Hypothyroidism (acquired) [place] [facility] Work Phone: Reason for referral (narrative) Note Date & Type Note Facility Reason for referral (narrative) No reason for referral information available [facility] Work Phone: Summary Purpose Family History No Family History Records Found Relationship Condition Age at Onset Recorded Date/T martin Not Specified Coronary artery disease Unknown Sudden cardiac Unknown Myocardial infarction Unknown Malignant neoplasm of breast Unknown Hypertension Unknown Disorder of thyroid Unknown Cerebrovascular accident (CVA) Unknown father Cardiac disease Unknown mother Cardiac disease Unknown Advance Directives No Advanced Directives Records Found Advance Directive Response Recorded Date/ Time Living Will No September 02, 2019 6:32pm Power of Mail Rider No September 01 0 6:32pm Advance Directive Response Recorded Date/ Time Living Will No September 02, 2019 5:32pm Power of Mail Rider No September 01 0 5:32pm Advance Directive Response Recorded Date/ Time Living Will No March 26 4 8:14pm Power of Mail Rider No March 26 024 8:14pm Hospital Course Note HNO ID: [id number] Author: Andrews Carbone Service: Trauma Author Type: [...] Austin Morse Consultin (more content not included)... Chief Complaint and Reason for Visit Chief Complaint Annual wellness exam PE Reason for Visit Hyperlipemia Hypothyroidism (acquired) Maxillary sinusitis Hypertension Chief Complaint medication refills Reason for Visit GERD (gastroesophage al reflux disease) Hyperlipemia Chronic headaches Hypertension Chief Complaint medication refills TSH Reason for Visit GERD (gastroesophage al reflux disease) Hyperlipemia Chronic headaches Hypertension Hypothyroidism (acquired) Chief Complaint Admit Date medication refills January 29, 2024 3:04pm LABWORK January 29, 2024 11:16pm labs to be drawn April 28, 2024 2:53pm Reason for Visit Admit Date Cystitis January 29, 2024 3:04pm Edema January 29, 2024 3:04pm Fibromyalgia January 29, 2024 3:04pm GERD (gastroesophageal reflux disease) N ovember 2023 3:04pm Hypothyroidism (acquired) January 29, 2024 3:04pm Hypertension January 29, 2024 3:04pm Anemia April 28, 2024 2:53pm Hyponatremia April 28, 2024 2:53pm Chronic headaches April 28, 2024 2:53pm Chief Complaint Admit Date labs to be drawn April 28, 2024 2:53pm labs to be drawn June 05, 2024 3:0 9pm Reason for Visit Admit Date Anemia April 28, 2024 2:53pm Hyponatremia April 28, 2024 2:53pm Chronic headaches April 28, 2024 2:53pm Hyponatremia June 05, 2024 3:0 9pm Chief Complaint Admit Date labs to be drawn April 28, 2024 2:53pm labs to be drawn June 05, 2024 3:0 9pm labs to be drawn July 14, 2024 2:4 7pm LABWORK July 14, 2024 11: 25pm Reason for Visit Admit Date Anemia April 28, 2024 2:53pm Hyponatremia April 28, 2024 2:53pm Chronic headaches April 28, 2024 2:53pm Hyponatremia June 05, 2024 3:0 9pm Hyponatremia July 14, 2024 2:4 7pm Chief Complaint Admit Date labs to be drawn April 28, 2024 2:53pm labs to be drawn June 05, 2024 3:0 9pm labs to be drawn July 14, 2024 2:4 7pm LABWORK July 14, 2024 11: 25pm Disease of gallbladder, unspecified August 04, 2024 9:57am Additional Source Comments INFORMATION SOURCE (unrecogn ized section and content) DATE CREATED AUTHOR 01/08/2020 [facility] DATE CREATED AUTHOR AUTHOR'S ORGANIZ ATION 02/11/2020 [facility] DATE CREATED AUTHOR AUTHOR'S ORGANIZ ATION 04/05/2022 [facility] DATE CREATED AUTHOR AUTHOR'S ORGANIZ ATION 08/20/2024 [facility] Goals (unrecognized section and content) Goals may be documented in a n alternate sectionGoals may be documented in an alternate sectionGoals may be documented in an alternate sectionGoals may be documented in an alternate sectionGoals may be documented in an alternate sectionGoals may be documented in an alternate sectionGoals may be documented in an alternate section Care Teams (unrecognized sec tion and content) Team Status: Active Member Role Status Dates Edie Crowder BOAT WORKER, BOAT WORKER-C Primary Care Provider Active Team Status: Inactive Member Role Status Dates Edie Crowder BOAT WORKER, BOAT WORKER-C Primary Care Pr ovider, Attending Provider, Referring Provider Active Team Status: Inactive Member Role Status Dates Edie Crowder BOAT WORKER, BOAT WORKER-C Primary Care Provider, Attend ing Provider Active Mattress Stripper Relationship Specialty Start Date End Date Johnathon Patel APRN-MOLD CHANGER [address] [place] [id number] FAMILY COACH Neurology 12/23/19 Yarelis Aden MD [address] [place] [id number] Physician Neurocritical Care 12/23/19 Team Status: Inactive Member Role Status Dates Edie Crowder BOAT WORKER, BOAT WORKER-C Primary Care Provider Active Start: January 29, 2024 End: January 29, 2024 Edie Crowder BOAT WORKER, BOAT WORKER-C Attending Provider Active Start: January 29, 2024 End: January 29, 2024 Edie Crowder BOAT WORKER, BOAT WORKER-C Referring Provider Active Start: January 29, 2024 End: January 29, 2024 Team Status: Inactive Member Role Status Dates Edie Crowder BOAT WORKER, BOAT WORKER-C Primary Care Provider Active Start: April 28, 2024 End: April 28, 2024 Edie Crowder BOAT WORKER, BOAT WORKER-C Attending Provider Active Start: April 28, 2024 End: April 28, 2024 Edie Crowder BOAT WORKER, BOAT WORKER-C Referring Provider Active Start: April 28, 2024 End: April 28, 2024 Team Status: Inactive Member Role Status Dates Edie Crowder BOAT WORKER, BOAT WORKER-C Primary Care Provider Active Start: May 15, 2024 End: May 15, 2024 Edie Crowder BOAT WORKER, BOAT WORKER-C Attending Provider Active Start: May 15, 2024 End: May 15, 2024 Edie Crowder BOAT WORKER, BOAT WORKER-C Referring Provider Active Start: May 15, 2024 End: May 15, 2024 Team Status: Inactive Member Role Status Dates Edie Crowder BOAT WORKER, BOAT WORKER-C Primary Care Provider Active Start: June 05, 2024 End: June 05, 2024 Edie Crowder BOAT WORKER, BOAT WORKER-C Attending Provider Active Start: June 05, 2024 End: June 05, 2024 Edie Crowder BOAT WORKER, BOAT WORKER-C Referring Provider Active Start: June 05, 2024 End: June 05, 2024 Team Status: Inactive Member Role Status Dates Edie Crowder BOAT WORKER, BOAT WORKER-C Primary Care Provider Active Start: July 14, 2024 End: July 14, 2024 Edie Crowder BOAT WORKER, BOAT WORKER-C Attending Provider Active Start: July 14, 2024 End: July 14, 2024 Edie Crowder BOAT WORKER, BOAT WORKER-C Referring Provider Active Start: July 14, 2024 End: July 14, 2024 Team Status: Inactive Member Role Status Dates Edie Crowder BOAT WORKER, BOAT WORKER-C Primary Care Provider Active Start: July 14, 2024 End: July 14, 2024 Edie Crowder BOAT WORKER, BOAT WORKER-C Attending Provider Active Start: July 14, 2024 End: July 14, 2024 Team Status: Inactive Member Role Status Dates Ediepedro pablo SoteloCrowder BOAT WORKER, BOAT WORKER-C Primary Care Provider Active Start: August 04, 2024 End: August 04, 2024 Edie Crowder BOAT WORKER, BOAT WORKER-C Attending Provider Active Start: August 04, 2024 End: August 04, 2024 Edie Crowder BOAT WORKER, BOAT WORKER-C Referring Provider Active Start: August 04, 2024 End: August 04, 2024 FOR RECORDS PERTAINING TO PATIENTS WHO ARE [...] BE BASED ON THE PRIMARY CLINICAL RECORDS. [employer] provides no warranty or guarantee of the accuracy or completeness of information in this document.
[2024-08-21 23:51] LABS: ALB/GLOB Ratio -2.1 RATIO (0.9-2.4); AST(SGOT) 22 U/L (<=31); Alanine Aminotransfer ALT/SGPT 14 U/L (<=34); Alkaline Phosphatase 31 U/L (35-104); Anion Gap 12 (5-15); BUN 10 mg/dL (4-19); BUN/Creat Ratio 12.4 RATIO (10-20); Calcium,Total 8.8 mg/dL (7.6-11.0); Chloride 103 mmol/L (98-108); EST Glomerular Filtration Rate 81 (>60); Globulin -1.9 g/dL (2.2-4.2); Glucose 73 mg/dL (70-99); Potassium 3.8 mmol/L (3.3-5.1); Protein, Total 2.1 g/dL (5.9-8.4); Sodium Level 133 mmol/L (133-145); Total Bilirubin 0.23 mg/dL (0.00-1.30)
[2024-08-22 00:01] LABS: Absolute Lymphocyte Count 2.37 X10^3/uL (0.83-4.51); Absolute Neutrophil Count 6.4 X10^3/uL (2.0-7.7); Basophil# 0.09 X10^3/uL; Basophil% 0.9 % (0-1); Eosinophil# 0.61 X10^3/uL; Eosinophils% 5.9 % (0-5); Hematocrit 34.8 % (37-47); Hemoglobin 11.1 g/dL (12.0-15.0); Lymphocyte # 2.37 X10^3/ul (0.83-4.51); Mean Corp Hgb Conc 31.9 g/dL (32-36); Mean Corpuscular Hgb 28.2 pg (27.0-32.0); Mean Corpuscular Volume 88.3 fL (81-99); Mean Platelet Vol. 9.4 fl (6.2-12.0); Monocyte# 0.76 X10^3/uL; Monocyte% 7.4 % (0-10); NRBC Flagged by Analyzer 0 % (0-5); Neutrophil # 6.44 X10^3/uL (2.7-7.7); Neutrophil % 62.3 % (47-70); Platelet Count 498 K/mm3 (150-450); RBC Distribution Width SD 42.1 fl (35.1-43.9); Red Blood Count 3.94 M/mm3 (4.2-5.4); White Blood Count 10.3 K/mm3 (4.4-11.0)
== END | disposition home or self-care (01) ==
PROVIDERS: PCP Nurse Practitioner; Referring Provider Nurse Practitioner; Visit Provider Nurse Practitioner
DX: R74.8 Abnormal levels of other serum enzymes (principal); K82.8 Other specified diseases of gallbladder; D50.8 Other iron deficiency anemias; R16.0 Hepatomegaly, not elsewhere classified
CPT/HCPCS: 80053; 85025

== ENCOUNTER → 2024-12-24 | Outpatient (CLI) | payer MEDICARE, SELFPAY ==
[2024-12-24 23:01] LABS: Hematocrit 36.0 % (37-47); Hemoglobin 12.0 g/dL (12.0-15.0); Immature Granulocytes Count 0.020 X10^3/uL (0.0-0.0); Mean Corp Hgb Conc 33.3 g/dL (32-36); Mean Corpuscular Volume 83.1 fL (81-99); Mean Platelet Vol. 9.2 fl (6.2-12.0); NRBC Flagged by Analyzer 0 % (0-5); Platelet Count 480 K/mm3 (150-450); RBC Distribution Width CV 13.6 % (11.6-14.6); RBC Distribution Width SD 41.4 fl (35.1-43.9); Red Blood Count 4.33 M/mm3 (4.2-5.4); White Blood Count 8.4 K/mm3 (4.4-11.0)
[2024-12-24 23:23] LABS: AST(SGOT) 22 U/L (<=31); Alanine Aminotransfer ALT/SGPT 9 U/L (<=34); Albumin, Serum 4.1 g/dL (3.4-4.8); Alkaline Phosphatase 179 U/L (35-104); Anion Gap 12 (5-15); BUN 11 mg/dL (4-19); BUN/Creat Ratio 12.5 RATIO (10-20); Calcium,Total 9.5 mg/dL (7.6-11.0); Carbon Dioxide 18.6 mmol/L (21.0-32.0); Chloride 102 mmol/L (98-108); Globulin 3.4 g/dL (2.2-4.2); Glucose 87 mg/dL (70-99); Potassium 4.3 mmol/L (3.3-5.1)
[2024-12-25 01:26] LABS: PTHIN 24 pg/mL (11-61)
[2024-12-26 16:09] LABS: EBV Acute VCA IgM < 36.0 U/mL (0.0-35.9); EBV-VCA IgG > 600.0 U/mL (0.0-17.9); Immunoglobulin A 220 mg/dL (87-352)
[2024-12-29 13:08] LABS: Anti-Chromatin <0.2 AI (0.0-0.9); Anti-Jo <0.2 AI (0.0-0.9); Anti-dsDNA Ab <1 IU/mL (0-9); SJOGREN'S Anti-SS-A test < 0.2 AI (0.0-0.9); SJOGREN'S Anti-SS-B test < 0.2 AI (0.0-0.9); Vitamin D 1,25-Dihydroxy 44.7 pg/mL (24.8-81.5)
== END | disposition home or self-care (01) ==
LOC: LABSPEC 22:28
PROVIDERS: PCP Nurse Practitioner; Visit Provider Nurse Practitioner
DX: K21.9 Gastro-esophageal reflux disease without esophagitis (principal); R53.83 Other fatigue; E03.9 Hypothyroidism, unspecified; K58.9 Irritable bowel syndrome, unspecified; R63.4 Abnormal weight loss; R74.8 Abnormal levels of other serum enzymes; E87.1 Hypo-osmolality and hyponatremia; D50.8 Other iron deficiency anemias; R19.7 Diarrhea, unspecified
CPT/HCPCS: 80053; 82652; 82784; 83516; 83970; 84443; 85025; 86225; 86235; 86255; 86664; 86665